=== PATIENT | female | born 1950 | race Caucasian/White ===

== ENCOUNTER 2020-03-15 14:21 | Outpatient (REF) | payer MEDICARE, SELFPAY ==
--- NOTE | 2020-03-15 | XR_ITS ---
EXAMINATION: XR ELBOW, RIGHT CLINICAL INFORMATION: Fracture COMPARISON: Previous x-ray June 2019 TECHNIQUE: AP, lateral, and oblique views of the right elbow. FINDINGS: There is an old ununited fracture of the distal radius. There is a transverse condylar fracture with vertical component that extends to the medial elbow joint. There is a 5 mm displacement at the medial joint space and at the lateral humeral condyle. Alignment appears unchanged. No evidence of interval bony union. No acute fracture or dislocation is seen. There may be a small elbow joint effusion. XR/XR elbow RT min 3V IMPRESSION: No change in ununited distal humeral fracture intra-articular with the medial elbow joint.
== END 2020-03-15 14:22 | disposition home or self-care (01) ==
LOC: HO.XRAY 14:21
PROVIDERS: PCP Internal Medicine; Visit Provider Internal Medicine
DX: S42.401D Unspecified fracture of lower end of right humerus, subsequent encounter for fracture with routine healing (principal)
CPT/HCPCS: 73080

== ENCOUNTER 2020-04-05 10:44 | Inpatient (IN) | payer MEDICARE, SELFPAY ==
[2020-04-05 10:54] VITALS: BP 115/77; BP 118/42; PULSE 70; PULSE 72; RESP 16; TEMP 36.1; O2SAT 100; O2SAT 97; BMI 32.2
--- NOTE | 2020-04-05 11:03 | XR_ITS ---
EXAMINATION: LEFT HIP AND LEFT KNEE X-RAY CLINICAL INFORMATION: Twisted knee. Pain. COMPARISON: Previous left knee x-ray July 2018 TECHNIQUE: 2 views of the left knee and 3 views of the left hip FINDINGS: Left knee: There is a comminuted fracture of the distal shaft of the left femur. There is slight lateral and posterior displacement of the femoral condyles with respect to the more proximal shaft, mild impaction and valgus and anterior angulation at the fracture. There is question of cortical thickening, periosteal reaction and small lucencies suggestive of underlying permeative bone lesion or pathologic fracture. There is arthritis at the medial femoral tibial and patellofemoral joints with joint space narrowing and osteophyte formation. There is a joint effusion. There are cerclage wires seen projecting over the medial proximal tibial metaphysis. Left hip: Bone alignment is normal. No fracture or dislocation is seen. The joint space is normal. Soft tissues are normal. XR/XR knee LT 3V IMPRESSION: Left knee: Comminuted displaced fracture of the left distal femoral shaft, question pathologic fracture. Left hip: Unremarkable left hip.
--- NOTE | 2020-04-05 11:09 | ED_ITS ---
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 Denies an actual fall, head injury or loss of consciousness, paresthesias or any other injuries complaints or concerns. Related Data Home Medications Medication Instructions Recorded Confirmed amlodipine 10 mg PO DAILY 01/05/20 04/05/20 atorvastatin 20 mg PO BEDTIME 01/05/20 04/05/20 calcium carbonate [Antacid Ext Str 1 tab PO BID 01/05/20 04/05/20 (calcium carb)] docusate sodium [DOK] 100 mg PO BEDTIME 01/05/20 04/05/20 omeprazole 20 mg DAILY 01/05/20 04/05/20 tramadol 1 tab PO Q12H PRN 04/05/20 04/05/20 Previous Rx's Medication Instructions Recorded potassium chloride 10 meq PO DAILY #30 tab 02/02/20 Allergies Allergy/AdvReac Type Severity Reaction Status Date / Time lenalidomide [From REVLIMID] Allergy Intermediate RASH HEAD Verified 01/05/20 10:37 TO TOE Review of Systems Review of Systems: Constitutional : No changes in activity, No lethargy ENT/Mouth : No Ear Pain, No Nasal discharge/drainage Eyes: No Eye Pain, No Swelling, No Redness, No Foreign Body, No Vision Changes Cardiovascular : No Chest Pain, No SOB Respiratory : No Cough Gastrointestinal : No Nausea, No Vomiting, No abdominal Pain Genitourinary : No Dysuria, No Urinary Frequency, No Urinary Incontinence, No Urgency, No Flank Pain Musculoskeletal : + joint pain, No neck stiffness, No back pain/injury Skin : No lacerations Neuro : No unsteady gait, No Paresthesias, No Loss of Consciousness, No altered mental status, No Headache Yes all other systems are reviewed and are negative [facility] Past Medical History Attestation statement: The following information was validated with the patient. Medical History (Updated 04/05/20 @ 11:48 by KAIA Singh) GERD (gastroesophageal reflux disease) History of IBS HTN (hypertension) Hyperlipidemia Right humeral fracture Thrombocytopenia Surgical History (Updated 04/05/20 @ 12:29 by Audrey Nance NP) H/O hernia repair History of esophagogastroduodenoscopy (EGD) History of total knee arthroplasty Previous section Family History Family History (Updated 04/05/20 @ 12:30 by Audrey Nance NP) Father Bladder cancer Mother ESRD (end stage renal disease) on dialysis Social History Social History Alcohol intake: never Smoking Status: Never smoker Smoked in Last 30 Days: No Use of substances other than those prescribed or required for medical reasons: No Advance Directives: No Advance Directives Information Provided: No Physical Exam Vital Signs: Vital Signs: Last Vital Signs Temp 96.9 F 04/05/20 12:00 Pulse 77 04/05/20 12:00 Resp 14 04/05/20 12:00 BP 122/46 L 04/05/20 12:00 Pulse Ox 98 04/05/20 12:00 Body Mass Index 32.2 Vital signs have been reviewed as normal and appeared to be correct. Blood pressure normal. Heart rate normal. Respiration rate normal. Temperature normal. Oxygen saturation normal. Appearance: Alert. Oriented. In pain otherwise No other acute distress. Head: Normal external exam. Normocephalic. Atraumatic. Able to rotate head bilaterally. Eyes: PERRLA. EOMI. No nystagmus noted. Conjunctiva and sclera normal. Eyelids normal. Corneal reflex normal. ENT: Hearing normal. Pharynx normal. Uvula midline. tongue midline. Moist mucous membranes. Neck: Normal inspection. Neck supple. FROM. Nontender. CVS: Normal heart rate and rhythm. Heart sound normal. Pulses normal throughout. Respiratory: No respiratory distress. Painless inspiration. Breath sounds normal. No wheezes/rales/rhonchi noted. Chest nontender. Back: No tenderness noted. Full range of motion noted. Skin: Skin warm and dry. Normal skin color. Normal skin turgor. No rashes/lesions/lacerations noted. Extremities: TTP of left knee joint at the medial aspect and held in internal flexion position and wwith any type of movement pt screams of pain ? deformity. No ecchymosis/abrasion/laceration/hematoma noted. Patient reports she is in too much pain when examining laxity although tendon and ligaments appear to be intact. No obvious deformities noted. All other Extremities exhibit normal range of motion and nontender. Neuro: Oriented X 3. No other motor deficit other than weakness to left knee joint. No sensory deficit. Reflexes normal. Moving all extremities. Speech normal. Strength 5/5 throughout to b/l arms and right leg. Decreased strength to LLE due to pain. Muscle tone normal throughout. 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 - will obtain x-rays. Provide 5 mg of oxycodone Then re-evaluate. Reevaluation(s) Reevaluation #1: - patient has a fracture to distal aspect of femur therefore will obtain labs, type and screen and EKG and plan to admit to [facility] orthopedic PA who will plan to admit for further evaluation and treatment. Time: 11:46 Reevaluation #2: - labs within normal limits. COVID swab negative. EKG normal sinus rhythm no acute ischemic changes noted. Patient cleared to be admitted at this time to the hospitalist and consulted with Orthopedics for surgery within 48 hours. Patient understands agrees the plan. Time: 13:52 MDM - Extremity Injury (Lower) Differential Diagnosis Differential diagnosis: Likely acute internal derangement of knee and fracture of femur Medical Records Attestation: I reviewed the patient's medical records. Lab Data Attestation: I reviewed the patient's lab results. Result diagrams: 04/05/20 12:32 04/05/20 12:31 Labs: Lab Results 04/05/20 04/05/20 04/05/20 Range/Units 12:31 12:31 12:32 WBC 9.6 (4.8-10.8) X10*3/uL RBC 3.71 L (4.20-5.50) X10*6/uL Hgb 10.9 L (12.0-16.0) g/dl Hct 34.0 L (37-47) % MCV 91.6 (80-98) fL MCH 29.4 (27.0-33.0) pg MCHC 32.1 (31.0-35.0) g/dl RDW 13.8 (11.0-16.0) % Plt Count 167 (160-400) X10*3/uL MPV 11.8 (9.4-12.3) fL Immature Gran % (Auto) 0.4 (0.0-0.4) % Neut % (Auto) 83.4 H (45-73) % Lymph % (Auto) 10.8 L (20-40) % [place] % (Auto) 5.1 (2-11) % Eos % (Auto) 0.1 (0-4) % Baso % (Auto) 0.2 (0-2) % Lymph # (Auto) 1.0 L (1.2-4.9) X10*3/uL [place] # (Auto) 0.5 (0.1-1.2) X10*3/uL Eos # (Auto) 0.0 (0.0-0.4) X10*3/uL Baso # (Auto) 0.0 (0.0-0.2) X10*3/uL Abs Immat Gran (auto) 0.04 H (0.00-0.03) X10*3/uL Absolute Neuts (auto) 8.0 (2.0-8.3) X10*3/uL Absolute Nucleated RBC 0.000 (0.0-0.012) X10*3/uL Nucleated RBC % (auto) 0.0 (0.0-0.2) /100WBC PT (10.8-13.0) SEC INR (0.9-1.1) APTT (24.1-38.0) SEC Sodium 140 (135-145) mmol/L Potassium 3.7 (3.3-5.1) mmol/l Chloride 102 (96-108) mmol/L Carbon Dioxide 21 L (22-29) mmol/L Anion Gap 21 H (12-20) BUN 14 (9-16) mg/dL Creatinine 0.93 (0.5-1.4) mg/dL Estim Creat Clear Calc 34.9 Estimated GFR 60 Random Glucose 99 (60-115) mg/dL Calcium 10.2 (8.4-10.2) mg/dL Magnesium 1.9 (1.6-2.6) mg/dL Total Bilirubin 0.4 (0.0-1.0) mg/dL Direct Bilirubin 0.2 (0.0-0.5) mg/dL AST 25 (5-31) U/L ALT 10 (0-31) U/L Alkaline Phosphatase 103 (39-117) U/L Total Protein 7.8 (6.5-8.0) g/dL Albumin 4.1 (3.5-5.0) g/dL COVID-19 (ABDOULAYE) (Negative) COVID-19 Clin Com Blood Type O Positive Antibody Screen NEGATIVE 04/05/20 04/05/20 Range/Units 12:32 12:34 WBC (4.8-10.8) X10*3/uL RBC (4.20-5.50) X10*6/uL Hgb (12.0-16.0) g/dl Hct (37-47) % MCV (80-98) fL MCH (27.0-33.0) pg MCHC (31.0-35.0) g/dl RDW (11.0-16.0) % Plt Count (160-400) X10*3/uL MPV (9.4-12.3) fL Immature Gran % (Auto) (0.0-0.4) % Neut % (Auto) (45-73) % Lymph % (Auto) (20-40) % [place] % (Auto) (2-11) % Eos % (Auto) (0-4) % Baso % (Auto) (0-2) % Lymph # (Auto) (1.2-4.9) X10*3/uL [place] # (Auto) (0.1-1.2) X10*3/uL Eos # (Auto) (0.0-0.4) X10*3/uL Baso # (Auto) (0.0-0.2) X10*3/uL Abs Immat Gran (auto) (0.00-0.03) X10*3/uL Absolute Neuts (auto) (2.0-8.3) X10*3/uL Absolute Nucleated RBC (0.0-0.012) X10*3/uL Nucleated RBC % (auto) (0.0-0.2) /100WBC PT 12.7 (10.8-13.0) SEC INR 1.1 (0.9-1.1) APTT 31.0 (24.1-38.0) SEC Sodium (135-145) mmol/L Potassium (3.3-5.1) mmol/l Chloride (96-108) mmol/L Carbon Dioxide (22-29) mmol/L Anion Gap (12-20) BUN (9-16) mg/dL Creatinine (0.5-1.4) mg/dL Estim Creat Clear Calc Estimated GFR Random Glucose (60-115) mg/dL Calcium (8.4-10.2) mg/dL Magnesium (1.6-2.6) mg/dL Total Bilirubin (0.0-1.0) mg/dL Direct Bilirubin (0.0-0.5) mg/dL AST (5-31) U/L ALT (0-31) U/L Alkaline Phosphatase (39-117) U/L Total Protein (6.5-8.0) g/dL Albumin (3.5-5.0) g/dL COVID-19 (ABDOULAYE) Negative (Negative) COVID-19 Clin Com See Note Blood Type Antibody Screen Imaging Data Left knee/femur x-ray: Attestation: I personally reviewed and interpreted this imaging study as follows: Radiologist's impression: IMPRESSION: Left knee: Comminuted displaced fracture of the left distal femoral shaft, question pathologic fracture. Left hip: Unremarkable left hip. ECG Data Attestation: I personally reviewed and interpreted this ECG as follows: ECG interpretation date: 04/05/20 ECG interpretation time: 12:01 Interpretation: Normal sinus rhythm with a ventricular rate of 83 with nonspecific T-wave abnormalities no acute ischemic changes noted. Similar when compared to prior EKG on 07/04/2017 Critical Care Time Critical Care Time Critical Care Time: Yes Total Critical Care Time: 60 Attestation: I personally attest to this time spent taking care of the patient Discharge Plan Discharge Clinical Impression: Closed left femoral fracture Patient Disposition: Admitted As Inpatient Prescriptions: No Action atorvastatin 20 mg tablet 20 mg PO BEDTIME RF: 0 calcium carbonate [Antacid Ext Str (calcium carb)] 300 mg (750 mg) tablet,c hewable 1 tab PO BID RF: 0 amlodipine 10 mg tablet 10 mg PO DAILY RF: 0 docusate sodium [DOK] 100 mg capsule 100 mg PO BEDTIME RF: 0 omeprazole 20 mg capsule,delayed release(DR/EC) 20 mg DAILY RF: 0 potassium chloride 10 mEq tablet extended release 10 meq PO DAILY Qty: 30 RF: 3 tramadol 50 mg tablet 1 tab PO Q12H PRN (Reason: severe pain) RF: 0
--- NOTE | 2020-04-05 11:28 | XR_ITS ---
EXAMINATION: LEFT HIP AND LEFT KNEE X-RAY CLINICAL INFORMATION: Twisted knee. Pain. COMPARISON: Previous left knee x-ray July 2018 TECHNIQUE: 2 views of the left knee and 3 views of the left hip FINDINGS: Left knee: There is a comminuted fracture of the distal shaft of the left femur. There is slight lateral and posterior displacement of the femoral condyles with respect to the more proximal shaft, mild impaction and valgus and anterior angulation at the fracture. There is question of cortical thickening, periosteal reaction and small lucencies suggestive of underlying permeative bone lesion or pathologic fracture. There is arthritis at the medial femoral tibial and patellofemoral joints with joint space narrowing and osteophyte formation. There is a joint effusion. There are cerclage wires seen projecting over the medial proximal tibial metaphysis. Left hip: Bone alignment is normal. No fracture or dislocation is seen. The joint space is normal. Soft tissues are normal. XR/XR femur LT 2V IMPRESSION: Left knee: Comminuted displaced fracture of the left distal femoral shaft, question pathologic fracture. Left hip: Unremarkable left hip.
[2020-04-05] MEDS: oxyCODONE HCl Immed Release 5 MG TABLET PO (11:40)
--- NOTE | 2020-04-05 11:43 | ECG_ITS ---
Test Reason : FALL Blood Pressure : / mmHG Vent. Rate : 083 BPM Atrial Rate : 083 BPM P-R Int : 178 ms QRS Dur : 084 ms QT Int : 382 ms P-R-T Axes : 039 -22 061 degrees QTc Int : 448 ms Normal sinus rhythm with sinus arrhythmia Nonspecific T wave abnormality Abnormal ECG When compared with ECG of 04-JUL-2017 12:15, No significant changes seen Referred By: Katerine Vazquez Electronically Signed By:Mark Castro
[2020-04-05 12:00] VITALS: BP 122/46; PULSE 77; RESP 14; TEMP 36.1; O2SAT 98
--- NOTE | 2020-04-05 12:27 | PM.IMHP ---
History of Present Illness Date of Service: 04/05/20 <Audrey Nance NP - Last Filed: 04/05/20 13:49> Chief Complaint: Fall <Audrey Nance NP - Last Filed: 04/05/20 13:49> 69 year old women presenting after a fall. She reported that she was in the kitchen cooking breakfast for her and suddenly her legs buckled from under her. She was able to hold onto the sink and not fall to the floor. She called her son and her son called EMS. She reported pain to the left leg but no trauma that she knows of. She does have history of multiple myeloma. Femur x-ray showed comminuted displaced fracture of the left distal femur , question pathological. Labs within acceptable limits, vital signs stable. Denies any recent fever, chills, nausea, vomiting, diarrhea, loss of consciousness. In the ED, she was given pain medication. She will be admitted for further management and treatment of acute femoral fracture. <Audrey Nance NP - Last Filed: 04/05/20 13:49> Review of Systems Review of Systems: Denies any recent fever chills or decrease in appetite respiratory denies any shortness of breath coverage production cardiovascular is adjustment of any PND or edema gastrointestinal denies any dysphagia abdominal pain nausea vomiting or diarrhea genitourinary denies any dysuria frequency or hematuria musculoskeletal Left leg pain neuropsych denies any weakness or seizures all other systems reviewed are negative <Audrey Nance NP - Last Filed: 04/05/20 13:49> FOR[facility], LATER [facility] Medical History: Medical History GERD (gastroesophageal reflux disease) History of IBS HTN (hypertension) Hx of multiple myeloma Hyperlipidemia Right humeral fracture Thrombocytopenia <Audrey Nance NP - Last Filed: 04/05/20 13:49> Family History: Family History Father Bladder cancer Mother ESRD (end stage renal disease) on dialysis <Audrey Nance NP - Last Filed: 04/05/20 13:49> Surgical History: Surgical History H/O hernia repair History of esophagogastroduodenoscopy (EGD) History of left knee surgery History of right knee surgery Previous section <Audrey Nance NP - Last Filed: 04/05/20 13:49> Social History: Social History Household Members: Family Housing: House Alcohol intake: never Smoking Status: Never smoker Second Hand Smoke Exposure: No Advance Directives: Yes Advance Directives Information Provided: No Advance Directives on File: No service: No Current occupational status: retired <Audrey Nance NP - Last Filed: 04/05/20 13:49> Meds Allergies/Adverse reactions: Allergies Allergy/AdvReac Type Severity Reaction Status Date / Time lenalidomide [From REVLIMID] Allergy Intermediate RASH HEAD Verified 04/06/20 10:42 TO TOE <Audrey Nance NP - Last Filed: 04/05/20 13:49> Home medications: Home Medications Medication Instructions Recorded Confirmed Type amlodipine 10 mg PO DAILY 01/05/20 04/05/20 History atorvastatin 20 mg PO BEDTIME 01/05/20 04/05/20 History calcium carbonate [Antacid Ext Str 1 tab PO BID 01/05/20 04/05/20 History (calcium carb)] docusate sodium [DOK] 100 mg PO BEDTIME 01/05/20 04/05/20 History omeprazole 20 mg DAILY 01/05/20 04/05/20 History tramadol 1 tab PO Q12H PRN 04/05/20 04/05/20 History <Audrey Nance NP - Last Filed: 04/05/20 13:49> Physical Exam Vital Signs and Narrative: Vital Signs: Last Vital Signs Temp 96.9 F 04/05/20 12:00 Pulse 77 04/05/20 12:00 Resp 14 04/05/20 12:00 BP 122/46 L 04/05/20 12:00 Pulse Ox 98 04/05/20 12:00 Body Mass Index 32.2 <Audrey Nance NP - Last Filed: 04/05/20 13:49> Results Labs CBC and Chem 7: : 04/08/20 06:26 04/08/20 06:26 <Audrey Nance NP - Last Filed: 04/05/20 13:49> Imaging Radiologist's Impressions: Impressions Knee X-Ray 04/05/20 11:03 IMPRESSION: Left knee: Comminuted displaced fracture of the left distal femoral shaft, question pathologic fracture. Left hip: Unremarkable left hip. Femur X-Ray 04/05/20 11:28 IMPRESSION: Left knee: Comminuted displaced fracture of the left distal femoral shaft, question pathologic fracture. Left hip: Unremarkable left hip. <Audrey Nance NP - Last Filed: 04/05/20 13:49> Assessment and Plan (1) Closed left femoral fracture: Status: Resolved <Audrey Nance NP - Last Filed: 04/05/20 13:49> 69 year old women is admitted with femoral fracture secondary to a mechanical fall. Femoral fracture. Orthopedic surgery consultation. Pain management. Mechanical fall. Bedrest for now, PT eval post-operative. Hypertension. Stable blood pressure. Monitor for post-operative hypotension. GERD. PPI Hyperlipidemia. Statin DVT prophylaxis with mechanical compression boots. Discussed with Dr. Urbina Full code <Audrey Nance NP - Last Filed: 04/05/20 13:49>
--- NOTE | 2020-04-05 12:29 | PC.NURSE ---
kaia ignacio and pt aware xray results, [facility] Gaytan C orthpedics at bedside to assess pt, pharmacy also at bedside for med rec
[2020-04-05 12:38] LABS: MANUAL DIFF FLAG NO
[2020-04-05 12:40] LABS: Basophils Percent Auto 0.2 % (0-2); Eosinophils Percent Auto 0.1 % (0-4); Hemoglobin 10.9 g/dl (12.0-16.0); Imm Gran Abs Auto 0.04 X10*3/uL (0.00-0.03); Imm Gran Pct Auto 0.4 % (0.0-0.4); Lymphocytes Percent Auto 10.8 % (20-40); Mean Corpuscular HGB Conc 32.1 g/dl (31.0-35.0); Mean Corpuscular Hemoglobin 29.4 pg (27.0-33.0); Mean Corpuscular Volume 91.6 fL (80-98); Mean Platelet Volume 11.8 fL (9.4-12.3); Monocytes Absolute Auto 0.5 X10*3/uL (0.1-1.2); Monocytes Percent Auto 5.1 % (2-11); Neutrophils Percent Auto 83.4 % (45-73); Platelet Count 167 X10*3/uL (160-400); Red Blood Count 3.71 X10*6/uL (4.20-5.50); Red Cell Distribution Width 13.8 % (11.0-16.0); White Blood Count 9.6 X10*3/uL (4.8-10.8)
[2020-04-05 12:49] LABS: INTERNATIONAL NORM RATIO 1.1 (0.9-1.1); Prothrombin Time 12.7 SEC (10.8-13.0)
--- NOTE | 2020-04-05 12:58 | PC.NURSE ---
phone offered to pt to call family approx. [phone] stated she wanted to wait until she had all information. [phone], pts spouse Dannie called to check on pt, updated re: admission and he agrees to have her call him when she gets settled and has all info
--- NOTE | 2020-04-05 13:00 | PC.NURSE ---
pt has port rt chest, no peripheral iv to be inserted at present time
[2020-04-05 13:09] LABS: COVID-19 Test Negative (Negative)
[2020-04-05 13:16] LABS: Alanine Aminotransferase 10 U/L (0-31); Albumin Level 4.1 g/dL (3.5-5.0); Alkaline Phosphatase 103 U/L (39-117); Anion Gap 21 (12-20); Aspartate Amino Transferase 25 U/L (5-31); Bilirubin Direct 0.2 mg/dL (0.0-0.5); Bilirubin Total 0.4 mg/dL (0.0-1.0); Blood Urea Nitrogen 14 mg/dL (9-16); Calcium 10.2 mg/dL (8.4-10.2); Carbon Dioxide 21 mmol/L (22-29); Chloride 102 mmol/L (96-108); Creatinine Clr Calc Pharmacy 34.9; Estimated Glomerular Filt Rate 60; Glucose Random 99 mg/dL (60-115); Magnesium 1.9 mg/dL (1.6-2.6); Potassium 3.7 mmol/l (3.3-5.1); Sodium 140 mmol/L (135-145); Total Protein 7.8 g/dL (6.5-8.0)
--- NOTE | 2020-04-05 13:20 | PM.EVENT ---
Event Note Date of Service: 04/05/20 Event Note: Patient seen and examined independently and was present during mclaughlin portion of E/M service. Agree with midlevel's history, physical, assessment, and plan. 69F presnted with mechanical fall mechanical fall complicated by left femoral fracture benefits of surgery outweigh risks thrombocytopenia mild, should not increase bleeding risk
--- NOTE | 2020-04-05 14:39 | XR_ITS ---
EXAMINATION: XR CHEST CLINICAL INFORMATION: Check port COMPARISON: Port insertion 08/21/2017 TECHNIQUE: Frontal view of the chest was obtained. FINDINGS: There is a right jugular inserted port catheter with stiffener in proximal SVC. It appears to have slowly migrated outwards. The lungs are well-expanded and clear. The heart size and vascularity is normal. There is moderate spondylosis dorsal spine. No lytic process. XR/XR chest 1V IMPRESSION: Slight outward migration of right jugular port. The lungs are otherwise clear.
--- NOTE | 2020-04-05 14:58 | MHC.SHP ---
Pre-Procedural Eval Section A The patient is an INPATIENT: Yes The History & Physical has been completed within 30 days and I have reviewed it.: Yes Section B Chief Complaint: left knee pain Allergies: Allergies Allergy/AdvReac Type Severity Reaction Status Date / Time lenalidomide [From REVLIMID] Allergy Intermediate RASH HEAD Verified 01/05/20 10:37 TO TOE Plan I have reviewed the history and physical and performed a pertinent physical examination on my patient. No changes have occurred unless specified.
--- NOTE | 2020-04-05 15:37 | P.HPOP_ITS ---
History of Present Illness History of Present Illness Date of Service: 04/05/20 Chief complaint: Femur Fracture Narrative: Kristen Cortés is a 69 year old female who presents to the ER s/p twi sting injury to her left leg and found to have a left distal femur fracture on xray. She states that this morning she was in her kitchen making a cup of coffee for her and twisted to start walking. At that point she states that her leg gave out and she fell to the ground. She does all ADLs on her own, walks unassisted before the injury, and lives with her and her daughters family. She has a medical history significant for Multiple Myeloma in which she is currently being treated with chemotherapy by Dr. Schuster. The patient is being admitted to the hospital service and orthopedics was consulted for further eval and treatment. Review of Systems Review of Systems: Yes all other systems are reviewed and are negative PMF Past Medical History Medical History (Updated 04/05/20 @ 15:54 by Natalya Jovel PA-C) GERD (gastroesophageal reflux disease) History of IBS HTN (hypertension) Hyperlipidemia Right humeral fracture Thrombocytopenia Family History Family History Father Bladder cancer Mother ESRD (end stage renal disease) on dialysis Surgical History Surgical History (Updated 04/05/20 @ 15:48 by Natalya Jovel PA-C) H/O hernia repair History of esophagogastroduodenoscopy (EGD) History of left knee surgery History of right knee surgery Previous section Social History Social History Alcohol intake: never Smoking Status: Never smoker Smoked in Last 30 Days: No Use of substances other than those prescribed or required for medical reasons: No Advance Directives: No Advance Directives Information Provided: No Meds Allergies Allergy/AdvReac Type Severity Reaction Status Date / Time lenalidomide [From REVLIMID] Allergy Intermediate RASH HEAD Verified 01/05/20 10:37 TO TOE Home Medications Medication Instructions Recorded Confirmed Type amlodipine 10 mg PO DAILY 01/05/20 04/05/20 History atorvastatin 20 mg PO BEDTIME 01/05/20 04/05/20 History calcium carbonate [Antacid Ext Str 1 tab PO BID 01/05/20 04/05/20 History (calcium carb)] docusate sodium [DOK] 100 mg PO BEDTIME 01/05/20 04/05/20 History omeprazole 20 mg DAILY 01/05/20 04/05/20 History tramadol 1 tab PO Q12H PRN 04/05/20 04/05/20 History Physical Exam Vital Signs: Vital Signs: Last Vital Signs Temp 96.9 F 04/05/20 12:00 Pulse 77 04/05/20 12:00 Resp 14 04/05/20 12:00 BP 122/46 L 04/05/20 12:00 Pulse Ox 98 04/05/20 12:00 Body Mass Index 32.2 Const: General: cooperative, healthy appearing, comfortable, no acute distress, well developed and alert Orientation/consciousness: patient vanesa ented x3 HENMT: Head: Yes normal to inspection, Yes normocephalic and Yes atraumatic Eyes: General: appearance normal, both eyes and all related structures Neck: Neck: Yes normal visual inspection and Yes no lymphadenopathy Resp: Effort & Inspection: normal respiratory effort and able to speak in complete sentences Cardio: Rate: regular rate Peripheral pulses: Peripheral pulses 2+ throughout GI: Inspection: Yes normal to inspection Palpation (GI): Soft to palpation Skin: General skin exam: no rashes or lesions noted Neuro: General: patient oriented x3 Extrem: Other: Left knee normal on inspection. Surgical scar present. Palpation over the distal femur illicits pain. Minimal swelling and no ecchy mosis. Patient is unable to flex her knee due to pain. Ankle has full ROM. NVI. Psych: Appearance: grossly normal Results Labs Result Diagrams: 04/05/20 12:32 04/05/20 12:31 Labs: Abnormal lab results 04/05/20 04/05/20 Range/Units 12:31 12:32 RBC 3.71 L (4.20-5.50) X10*6/uL Hgb 10.9 L (12.0-16.0) g/dl Hct 34.0 L (37-47) % Neut % (Auto) 83.4 H (45-73) % Lymph % (Auto) 10.8 L (20-40) % Lymph # (Auto) 1.0 L (1.2-4.9) X10*3/uL Abs Immat Gran (auto) 0.04 H (0.00-0.03) X10*3/uL Carbon Dioxide 21 L (22-29) mmol/L Anion Gap 21 H (12-20) H & H 04/05/20 Range/Units 12:32 Hgb 10.9 L (12.0-16.0) g/dl Hct 34.0 L (37-47) % Coagulation 04/05/20 Range/Units 12:32 INR 1.1 (0.9-1.1) All other labs normal. Assessment and Plan (1) Closed left femoral fracture: Qualifiers: Encounter type: initial encounter Femur location: distal, unspecified portion Fracture morphology: unspecified fracture morphology Qualified Code(s): S72.402A - Unspecified fracture of lower end of left femur, initial encounter for closed fracture Status: Acute I discussed the case with Dr. Boston and explained the extent of the injury to the patient and options available which include surgical intervention. I explained the procedure in detail along with the length of recovery and rehab course. I explained the risk, benefits and alternatives. Risk including, but not limited to infection, blood clots, bleeding, non union or malunion and nerve /tissue damage to surrounding areas. I answered all of her questions and with her understanding that she has consented to move forward with Operative Fixation of her left distal femur. The patient with be T&S, med clearance obtained and NPO after midnight.
[2020-04-05 15:56] LABS: Glucose Urine UA NEG (NEG); Leukocyte Esterase Urine NEG (NEG); Nitrite Urine NEG (NEG); PH 6.5 (5.0-8.0); Urine Blood 1+ (NEG); Urine Ketones 15 MG/DL (NEG); Urine Protein TRACE MG/DL (NEG-TRACE)
[2020-04-05 15:57] LABS: Appearance Urine CLEAR; Color Urine YELLOW
[2020-04-05 16:18] LABS: Bacteria Urine 1+ /LPF; Squamous Epithelial Cell Urine 1+ /LPF; WBC Urine 0 /HPF (0-4)
[2020-04-05 16:45] VITALS: BP 146/67; PULSE 96; RESP 16; TEMP 36.9; O2SAT 98
--- NOTE | 2020-04-05 16:46 | PC.NURSE ---
one attempt to access portacath rt chest unsuccessful. peripheral iv +22 rt hand inserted by adriana wu
--- NOTE | 2020-04-05 16:57 | PC.NURSE ---
report to adriana ludwig s3w, awaiting transport to floor
[2020-04-05 17:38] VITALS: BP 138/65; PULSE 98; RESP 17; TEMP 37.1; O2SAT 99
--- NOTE | 2020-04-05 17:42 | PC.NURSE ---
transported via stretcher, f/c in place, #22 rt hand, a&ox3
[2020-04-05] MEDS: 0.9 % Sodium Chloride Flush 3 ML SYRINGE IVFLUSH ×2 (18:03→21:27)
[2020-04-05 19:30] VITALS: BP 154/79; PULSE 104; RESP 16; TEMP 37.1; O2SAT 97
[2020-04-05] MEDS: Calcium Carbonate 750 MG TAB.CHEW PO (21:27)
[2020-04-05] MEDS: Atorvastatin Calcium 20 MG TABLET PO (21:27)
[2020-04-05] MEDS: Docusate Sodium 100 MG CAPSULE PO (21:27)
[2020-04-05 23:45] VITALS: BP 142/72; PULSE 103; RESP 20; TEMP 36.7; O2SAT 97
[2020-04-06] VITALS (12 sets, daily range): BP systolic 124–152; BP diastolic 64–76; PULSE 92–98; RESP 14–19; TEMP 36.3–37.7; O2SAT 93–97; BMI 32.2
[2020-04-06] MEDS: Omeprazole 20 MG CAPSULE.DR PO (06:38)
[2020-04-06] MEDS: ceFAZolin Sodium/Dextrose,Iso 2 GM/50 ML PIGGYBACK IV ×3 (06:39→16:34)
[2020-04-06 06:44] LABS: MANUAL DIFF FLAG NO
[2020-04-06 06:56] LABS: Hematocrit 30.5 % (37-47); Hemoglobin 10.1 g/dl (12.0-16.0); Imm Gran Abs Auto 0.04 X10*3/uL (0.00-0.03); Imm Gran Pct Auto 0.6 % (0.0-0.4); Lymphocytes Absolute Auto 1.3 X10*3/uL (1.2-4.9); Lymphocytes Percent Auto 17.4 % (20-40); Mean Corpuscular HGB Conc 33.1 g/dl (31.0-35.0); Mean Corpuscular Hemoglobin 29.4 pg (27.0-33.0); Mean Corpuscular Volume 88.9 fL (80-98); Mean Platelet Volume 11.6 fL (9.4-12.3); Monocytes Absolute Auto 0.8 X10*3/uL (0.1-1.2); Monocytes Percent Auto 10.7 % (2-11); Neutrophils Absolute Auto 5.1 X10*3/uL (2.0-8.3); Neutrophils Percent Auto 71.3 % (45-73); Platelet Count 164 X10*3/uL (160-400); Red Blood Count 3.43 X10*6/uL (4.20-5.50); Red Cell Distribution Width 13.5 % (11.0-16.0); White Blood Count 7.2 X10*3/uL (4.8-10.8)
[2020-04-06] MEDS: 0.9 % Sodium Chloride Flush 3 ML SYRINGE IVFLUSH ×5 (07:17→21:46)
[2020-04-06] MEDS: oxyCODONE HCl Immed Release 5 MG TABLET PO ×2 (07:17→18:33)
[2020-04-06 07:36] LABS: Anion Gap 18 (12-20); Blood Urea Nitrogen 14 mg/dL (9-16); Calcium 9.3 mg/dL (8.4-10.2); Carbon Dioxide 22 mmol/L (22-29); Chloride 100 mmol/L (96-108); Creatinine Clr Calc Pharmacy 39.6; Estimated Glomerular Filt Rate > 60; Glucose Random 107 mg/dL (60-115); Potassium 3.8 mmol/l (3.3-5.1); Sodium 136 mmol/L (135-145)
[2020-04-06] MEDS: amLODIPine Besylate 10 MG TABLET PO (08:13)
--- NOTE | 2020-04-06 10:48 | HO.ANESPROP2 ---
[facility] Past Medical History Medical History GERD (gastroesophageal reflux disease) History of IBS HTN (hypertension) Hx of multiple myeloma Hyperlipidemia Right humeral fracture Thrombocytopenia Family History Family History Father Bladder cancer Mother ESRD (end stage renal disease) on dialysis Surgical History Surgical History H/O hernia repair History of esophagogastroduodenoscopy (EGD) History of left knee surgery History of right knee surgery Previous section Social History Social History Household Members: Family Housing: House Alcohol intake: never Smoking Status: Never smoker Second Hand Smoke Exposure: No Meds Allergies Allergy/AdvReac Type Severity Reaction Status Date / Time lenalidomide [From REVLIMID] Allergy Intermediate RASH HEAD Verified 04/06/20 10:42 TO TOE Home Medications Medication Instructions Recorded Confirmed Type amlodipine 10 mg PO DAILY 01/05/20 04/05/20 History atorvastatin 20 mg PO BEDTIME 01/05/20 04/05/20 History calcium carbonate [Antacid Ext Str 1 tab PO BID 01/05/20 04/05/20 History (calcium carb)] docusate sodium [DOK] 100 mg PO BEDTIME 01/05/20 04/05/20 History omeprazole 20 mg DAILY 01/05/20 04/05/20 History tramadol 1 tab PO Q12H PRN 04/05/20 04/05/20 History Exam Exam Date and Time: April 06, 2020 1048 Height,Weight and Vital Signs: Height 4 ft 4 in Weight 56.245 kg Last Vital Signs Temp 99.1 F 04/06/20 07:53 Pulse 92 04/06/20 07:53 Resp 18 04/06/20 07:53 BP 150/67 H 04/06/20 07:53 Pulse Ox 93 04/06/20 07:53 Pertinent Lab Results Pertinent Lab Results: Laboratory Tests 04/05/20 04/05/20 04/05/20 12:31 12:31 12:32 WBC 9.6 RBC 3.71 L Hgb 10.9 L Hct 34.0 L MCV 91.6 MCH 29.4 MCHC 32.1 RDW 13.8 Plt Count 167 MPV 11.8 Immature Gran % (Auto) 0.4 Neut % (Auto) 83.4 H Lymph % (Auto) 10.8 L [place] % (Auto) 5.1 Eos % (Auto) 0.1 Baso % (Auto) 0.2 Lymph # (Auto) 1.0 L [place] # (Auto) 0.5 Eos # (Auto) 0.0 Baso # (Auto) 0.0 Abs Immat Gran (auto) 0.04 H Absolute Neuts (auto) 8.0 Absolute Nucleated RBC 0.000 Nucleated RBC % (auto) 0.0 PT INR APTT Sodium 140 Potassium 3.7 Chloride 102 Carbon Dioxide 21 L Anion Gap 21 H BUN 14 Creatinine 0.93 Estim Creat Clear Calc 34.9 Estimated GFR 60 Random Glucose 99 Calcium 10.2 Magnesium 1.9 Total Bilirubin 0.4 Direct Bilirubin 0.2 AST 25 ALT 10 Alkaline Phosphatase 103 Total Protein 7.8 Albumin 4.1 Urine Color Urine Appearance Urine pH Ur Specific [place] Urine Protein Urine Glucose (UA) Urine Ketones Urine Blood Urine Nitrite Ur Leukocyte Esterase Urine RBC Urine WBC Ur Squamous Epith Cells Urine Bacteria COVID-19 (ABDOULAYE) COVID-19 Clin Com Blood Type O Positive Antibody Screen NEGATIVE 04/05/20 04/05/20 04/05/20 12:32 12:34 15:33 WBC RBC Hgb Hct MCV MCH MCHC RDW Plt Count MPV Immature Gran % (Auto) Neut % (Auto) Lymph % (Auto) [place] % (Auto) Eos % (Auto) Baso % (Auto) Lymph # (Auto) [place] # (Auto) Eos # (Auto) Baso # (Auto) Abs Immat Gran (auto) Absolute Neuts (auto) Absolute Nucleated RBC Nucleated RBC % (auto) PT 12.7 INR 1.1 APTT 31.0 Sodium Potassium Chloride Carbon Dioxide Anion Gap BUN Creatinine Estim Creat Clear Calc Estimated GFR Random Glucose Calcium Magnesium Total Bilirubin Direct Bilirubin AST ALT Alkaline Phosphatase Total Protein Albumin Urine Color YELLOW Urine Appearance CLEAR Urine pH 6.5 Ur Specific [place] 1.020 Urine Protein TRACE Urine Glucose (UA) NEG Urine Ketones 15 Urine Blood 1+ H Urine Nitrite NEG Ur Leukocyte Esterase NEG Urine RBC 1-4 Urine WBC 0 Ur Squamous Epith Cells 1+ Urine Bacteria 1+ COVID-19 (ABDOULAYE) Negative COVID-19 Clin Com See Note Blood Type Antibody Screen 04/06/20 04/06/20 06:22 06:22 WBC 7.2 RBC 3.43 L Hgb 10.1 L Hct 30.5 L MCV 88.9 MCH 29.4 MCHC 33.1 RDW 13.5 Plt Count 164 MPV 11.6 Immature Gran % (Auto) 0.6 H Neut % (Auto) 71.3 Lymph % (Auto) 17.4 L [place] % (Auto) 10.7 Eos % (Auto) 0.0 Baso % (Auto) 0.0 Lymph # (Auto) 1.3 [place] # (Auto) 0.8 Eos # (Auto) 0.0 Baso # (Auto) 0.0 Abs Immat Gran (auto) 0.04 H Absolute Neuts (auto) 5.1 Absolute Nucleated RBC 0.000 Nucleated RBC % (auto) 0.0 PT INR APTT Sodium 136 Potassium 3.8 Chloride 100 Carbon Dioxide 22 Anion Gap 18 BUN 14 Creatinine 0.82 Estim Creat Clear Calc 39.6 Estimated GFR > 60 Random Glucose 107 Calcium 9.3 D Magnesium Total Bilirubin Direct Bilirubin AST ALT Alkaline Phosphatase Total Protein Albumin Urine Color Urine Appearance Urine pH Ur Specific [place] Urine Protein Urine Glucose (UA) Urine Ketones Urine Blood Urine Nitrite Ur Leukocyte Esterase Urine RBC Urine WBC Ur Squamous Epith Cells Urine Bacteria COVID-19 (ABDOULAYE) COVID-19 Clin Com Blood Type Antibody Screen Airway Mallampati Class: II TM Dist: >3cm Neck ROM: Full Assessment and Plan Assessment Anesthesia Assessment: Anesthesia Plan Discussed and Chart Reviewed Final Anesthetic Review NPO: Yes ASA Class: III Final Preanesthetic Review: No Changes in Pt Med Stat, Meds/Allgs Chart Reviewed, Consent Obtained/Reviewed and Anes Risks/Benef Reviewed Patient Risk: Intermediate Procedure Risk: Intermediate Assessment/Block/Sedation in SS: Assess/Block/Sedation-SS Anesthetic Plan Anesthetic Plan: GA Disposition: Standard PACU
--- NOTE | 2020-04-06 11:13 | FL_ITS ---
EXAMINATION: XR FLUOROSCOPY WITH IMAGES CLINICAL INFORMATION: Displaced fracture distal femur. COMPARISON: Radiographs left femur and knee 04/05/2020 TECHNIQUE: Fluoroscopy performed by Dr. Carranza Instrlizabeth. Fluoroscopy time: 4.0 minutes DAP: 0.672 mGycm2 Images: 4 FINDINGS: Distal femoral fracture is reduced with intramedullary suly, 2 proximal interlocking screws, and for distal interlocking screws. The fracture fragments are in near-anatomic alignment. Hardware intact. There are arthritic changes again seen medial lateral knee joint compartment. FL/FL guidance in OR IMPRESSION: Status post open reduction internal fixation distal left femoral fracture.
[2020-04-06] MEDS: Lactated Ringers 1,000 ML 20 ML IVCONT (11:15)
--- NOTE | 2020-04-06 12:32 | MHC.CM.PN ---
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 CM will revisit tomorrow Original Note: CM ATTEMPTED TO SEE PT WHO IS OFF THE UNIT. CM TO RETURN
--- NOTE | 2020-04-06 12:41 | HO.PM.IMPN ---
Subjective Subjective Date of Service: 04/06/20 Interval History: Patient seen and examined at bedside patient reported hip pain Review of Systems Denies any recent fever chills or decrease in appetite respiratory denies any shortness of breath coverage production cardiovascular is adjustment of any PND or edema gastrointestinal denies any dysphagia abdominal pain nausea vomiting or diarrhea genitourinary denies any dysuria frequency or hematuria musculoskeletal Left leg pain neuropsych denies any weakness or seizures all other systems reviewed are negative Physical Exam Vital Signs: Vital Signs: Last Vital Signs Temp 99.8 F 04/06/20 10:43 Pulse 92 04/06/20 10:43 Resp 16 04/06/20 10:43 BP 133/73 04/06/20 10:43 Pulse Ox 97 04/06/20 10:43 Body Mass Index 32.2 Const: General: cooperative, healthy appearing, comfortable, no acute distress, well developed and alert Orientation/consciousness: patient oriented x3 Limitations: No language barrier HENMT: Head: Yes normal to inspection, Yes normocephalic and Yes atraumatic Eyes: General: appearance normal, both eyes and all related structures Neck: Neck: Yes normal visual inspection and Yes no lymphadenopathy Resp: Effort & Inspection: normal respiratory effort and able to speak in complete sentences Cardio: Rate: regular rate Peripheral pulses: Peripheral pulses 2+ throughout GI: Inspection: Yes normal to inspection Palpation (GI): Soft to palpation Skin: General skin exam: no rashes or lesions noted Neuro: General: patient oriented x3 Extrem: Other: Left knee normal on inspection. Surgical scar present. Palpation over the distal femur illicits pain. Minimal swelling and no ecchymosis. Patient is unable to flex her knee due to pain. Ankle has full ROM. NVI. Psych: Appearance: grossly normal Objective Data Current Medications Generic Name Dose Route Start Last Admin Trade Name Freq PRN Reason Stop Dose Admin Acetaminophen 650 mg 04/05/20 17:35 Acetaminophen 325 Mg Tablet PO Q6H PRN Pain, Mild (Pain Scale 1-3) Acetaminophen 650 mg 04/06/20 11:11 Acetaminophen 325 Mg Tablet PO ONCE PRN Pain, Mild (Pain Scale 1-3) Amlodipine Besylate 10 mg 04/06/20 09:00 04/06/20 08:13 Amlodipine Besylate 10 Mg Tablet PO 10 mg DAILY ROSA Administration Protocol Atorvastatin Calcium 20 mg 04/05/20 21:00 04/05/20 21:27 Atorvastatin Calcium 20 Mg Tablet PO 20 mg BEDTIME ROSA Administration Calcium Carbonate 750 mg 04/05/20 21:00 04/06/20 08:15 Calcium Carbonate 750 Mg Tab.Chew PO Not Given BID ROSA Docusate Sodium 100 mg 04/05/20 21:00 04/05/20 21:27 Docusate Sodium 100 Mg Capsule PO 100 mg BEDTIME ROSA Administration Fentanyl 50 mcg 04/06/20 11:11 Fentanyl Citrate/Pf 100 Mcg/2 Ml Vial IVPUSH Q5M PRN Pain, Severe (Pain Scale 7-10) Lactated Ringer's 1,000 mls @ 20 mls/hr 04/06/20 11:15 04/06/20 11:15 Lr IVCONT 20 mls/hr .Q24H ROSA Administration Morphine Sulfate 2 mg 04/05/20 17:35 Morphine Sulfate 2 Mg/Ml Cartridge IVPUSH Q4H PRN Pain, Mild (Pain Scale 1-3) Omeprazole 20 mg 04/06/20 06:30 04/06/20 06:38 Omeprazole 20 Mg Capsule.Dr PO 20 mg DAILY@0630 ROSA Administration Ondansetron HCl 4 mg 04/05/20 17:35 Ondansetron Hcl 4 Mg/2 Ml Vial IVPUSH Q8H PRN Nausea and Vomiting Ondansetron HCl 4 mg 04/06/20 11:11 Ondansetron Hcl 4 Mg/2 Ml Vial IVPUSH ONCE PRN Nausea and Vomiting Oxycodone HCl 5 mg 04/05/20 16:23 04/06/20 07:17 Oxycodone Hcl Immed Release 5 Mg Tablet PO 5 mg Q4H PRN Administration Pain, Mild (Pain Scale 1-3) Oxycodone HCl 5 mg 04/05/20 17:35 Oxycodone Hcl Immed Release 5 Mg Tablet PO Q6H PRN Pain, Mild (Pain Scale 1-3) Oxycodone HCl 5 mg 04/06/20 11:11 Oxycodone Hcl Immed Release 5 Mg Tablet PO ONCE PRN Pain, Severe (Pain Scale 7-10) Pharmacy Consult 1 each 04/05/20 11:44 Consult Rx Perform Med Rec MISCELLANE ONCE PRN Consult order Potassium Chloride 10 meq 04/06/20 09:00 04/06/20 08:15 Potassium Chloride Er 10 Meq Capsule.Er PO Not Given DAILY ROSA Sodium Chloride 3 ml 04/05/20 17:35 04/06/20 07:17 0.9 % Sodium Chloride Flush 3 Ml Syringe IVFLUSH 3 ml QSHIFT [facility] Administration Labs CBC & Chem 7: 04/06/20 06:22 04/06/20 06:22 Assessment and Plan (1) Closed left femoral fracture: Status: Acute Assessment and Plan: 69 year old women is admitted with femoral fracture secondary to a mechanical fall. Femoral fracture. Orthopedic surgery consulted plan for surgery today continue Pain management. Mechanical fall. PT eval post-operative. Hypertension. Stable blood pressure. continue amlodipine GERD. continue PPI Hyperlipidemia. Statin DVT prophylaxis with mechanical compression boots.
--- NOTE | 2020-04-06 13:39 | PM.PRCOR ---
Brief Operative Note Date of procedure: 04/06/20 Pre-op diagnosis: Supracondylar fracture left femur Post-op diagnosis: same Procedure: UPPER FIXATION LEFT FEMUR WITH LOCKED RETROGRADE FEMORAL NAIL Anesthesia: GETA and local Surgeon: Tere Boston Estimated blood loss (mL): 50 Condition: stable Disposition: PACU
[2020-04-06] MEDS: Atorvastatin Calcium 20 MG TABLET PO (21:38)
[2020-04-06] MEDS: Docusate Sodium 100 MG CAPSULE PO (21:38)
[2020-04-06] MEDS: Calcium Carbonate 750 MG TAB.CHEW PO (21:38)
[2020-04-06] MEDS: Morphine Sulfate 2 MG/ML CARTRIDGE IVPUSH (21:42)
[2020-04-07] VITALS (9 sets, daily range): BP systolic 122–150; BP diastolic 56–89; PULSE 72–110; RESP 16–18; TEMP 36.4–37.4; O2SAT 93–98
[2020-04-07] MEDS: Morphine Sulfate 2 MG/ML CARTRIDGE IVPUSH ×2 (01:59→06:38)
[2020-04-07] MEDS: Omeprazole 20 MG CAPSULE.DR PO (06:38)
[2020-04-07 08:46] LABS: MANUAL DIFF FLAG NO
[2020-04-07 08:57] LABS: Hematocrit 27.8 % (37-47); Hemoglobin 9.2 g/dl (12.0-16.0); Imm Gran Abs Auto 0.03 X10*3/uL (0.00-0.03); Imm Gran Pct Auto 0.3 % (0.0-0.4); Lymphocytes Percent Auto 10.9 % (20-40); Mean Corpuscular HGB Conc 33.1 g/dl (31.0-35.0); Mean Corpuscular Hemoglobin 29.5 pg (27.0-33.0); Mean Corpuscular Volume 89.1 fL (80-98); Mean Platelet Volume 11.5 fL (9.4-12.3); Monocytes Absolute Auto 0.9 X10*3/uL (0.1-1.2); Monocytes Percent Auto 9.2 % (2-11); Neutrophils Absolute Auto 7.5 X10*3/uL (2.0-8.3); Neutrophils Percent Auto 79.6 % (45-73); Platelet Count 144 X10*3/uL (160-400); Red Blood Count 3.12 X10*6/uL (4.20-5.50); Red Cell Distribution Width 13.5 % (11.0-16.0); White Blood Count 9.4 X10*3/uL (4.8-10.8)
[2020-04-07] MEDS: amLODIPine Besylate 10 MG TABLET PO (08:58)
[2020-04-07] MEDS: Calcium Carbonate 750 MG TAB.CHEW PO ×2 (08:58→21:08)
[2020-04-07] MEDS: oxyCODONE HCl Immed Release 5 MG TABLET 10 MG PO ×4 (08:59→21:09)
[2020-04-07] MEDS: 0.9 % Sodium Chloride Flush 3 ML SYRINGE IVFLUSH ×4 (09:01→15:37)
[2020-04-07 09:32] LABS: Anion Gap 14 (12-20); Blood Urea Nitrogen 16 mg/dL (9-16); Calcium 8.8 mg/dL (8.4-10.2); Carbon Dioxide 25 mmol/L (22-29); Chloride 98 mmol/L (96-108); Creatinine Clr Calc Pharmacy 39.6; Estimated Glomerular Filt Rate > 60; Glucose Random 111 mg/dL (60-115); Sodium 133 mmol/L (135-145)
--- NOTE | 2020-04-07 09:45 | HO.POSTANES ---
Post Anesthesia Evaluation Post Anesthesia Evaluation Vital Signs: Vital Signs Temp Pulse Resp BP Pulse Ox 04/07/20 08:58 96 140/72 H 04/07/20 07:07 99.4 F 96 18 140/72 H 93 04/07/20 04:00 98.3 F 98 16 142/67 H 94 04/07/20 00:31 98.6 F 72 18 150/82 H 98 Anesthesia: General LMA Mental Status: Awake Pain Control: Satisfactory Nausea/Vomiting: None Hydration: Adequate Anesthesia-Related Issues: No Anes. Related Issues
--- NOTE | 2020-04-07 11:36 | MHC.CM.PN ---
PT WILL DISCHARGE TO ACUTE REHAB VIA BLS TRANSPORT VIA [facility], PT WOULD PREFER A REHAB IN [place] OR [facility] TO MAKE REFERRALS FOR ANTICIPATED D/C TOMORROW 04/08/20. PT REPORTS SHE WAS INDEPENDENT WITH ALL CARE PRIOR TO HOSPITAL STAY AND HAD NOT HAD TO USE HER CANE SINCE SHE FRACTURED HER ELBOW IN 2018, PT REPORTS LIVING WITH , SON [id number] AND TWO SMALL GRANDCHILDREN. PT VERIFIED PCP [facility]MMET[facility] AND PHARMACY [facility]. PT DOES REPORT SHE HAS A HEALTH CARE PROXYWHO IS HER SON EMANUEL ALLISON, COPY REQUESTED. IF UNABLE TO LOCATE OR BRING IN CM WILL COMPLETE A NEW ONE DUE TO PT NEEDING IT FOR PLACEMENT.
--- NOTE | 2020-04-07 12:21 | MHC.CM.PN ---
Addendum entered by Minda Olvera RN 04/07/20 14:23: NEW HCP COMPLETED WITH PT, PT GIVEN ORIGINAL AND 4 COPIES, COPY UPLOADED TO [employer] AND PLACED IN CHART. HCP: TERI ALLISON () (H)[phone] (CELL) [phone] ALTERNATE: EMANUEL ALLISON (SON) [phone] Original Note: CM SPOKE WITH PT'S TERI TO REQUEST COPY OF HCP, TERI REPORTS HE DOES NOT KNOW WHERE IT IS. CM WILL OFFER TO COMPLETE NEW ONE WITH PT IF NONE ON FILE. CM REVIEWED ACUTE REHABS WITH WHO PREFERS [facility] DUE TO IT BEING CLOSEST TO HOME, WHICH PT ALSO PREFERS. DISCHARGE PLAN TRANSFER TO ACUTE REHAB VIA BLS TRANSPORT ON 04/08/20
[2020-04-07] MEDS: Enoxaparin Sodium 40 MG/0.4 ML SYRINGE SUBCUT (12:56)
--- NOTE | 2020-04-07 14:31 | MHC.CM.PN ---
Addendum entered by Minda Olvera RN 04/07/20 15:34: CM RECEIVED CALL FROM [facility] AND SECURED BED FOR TOMORROW 04/08 AT 3PM, TRANSPORTATION SET UP WITH [facility]. CM REQUESTED REPEAT COVID TEST FOR TONIGHT OR TOMORROW MORNING. WILL NEED PRIOR TO TRANSFER. Original Note: PT CLINICALLY ACCEPTED AT [facility] AND [place] PENDING BED AVAILABILITY, PTS FIRST CHOICE IS [facility] AND THEY ARE AWARE.
--- NOTE | 2020-04-07 14:58 | PM.PNORT ---
Subjective Subjective Date of Service: 04/07/20 Interval history: POD1 s/p Lt distal femoral nailing. Patient states that she was having a lot of pain overnight. No major overnight events. Denies nausea and vomiting. Physical Exam Vital Signs: Vital Signs: Last Vital Signs Temp 98.8 F 04/07/20 11:09 Pulse 94 04/07/20 11:09 Resp 18 04/07/20 11:09 BP 127/56 L 04/07/20 11:09 Pulse Ox 93 04/07/20 11:09 Body Mass Index 32.2 Const: General: cooperative, healthy appearing and no acute distress Resp: Effort & Inspection: normal respiratory effort and able to speak in complete sentences Cardio: Rate: regular rate Peripheral pulses: Peripheral pulses 2+ throughout GI: Inspection: Yes normal to inspection Palpation (GI): Soft to palpation Skin: General skin exam: no rashes or lesions noted Extrem: Other: Left knee no ecchymosis, redness, or drainage. Minimal swelling. Dressing is clean dry and intact. NVI Progress Note: A&P Assessment and plan (1) Closed left femoral fracture: Status: Acute Assessment and Plan: Continue pain mgmnt Begin Lovenox dvt ppx begin PT for LT distal femoral nailing NWB Dispo planning-Pending PT eval, pain mgmnt Fall Risk Details Current Medications: Current Medications Generic Name Dose Route Start Last Admin Trade Name Freq PRN Reason Stop Dose Admin Acetaminophen 650 mg 04/05/20 17:35 Acetaminophen 325 Mg Tablet PO Q6H PRN Pain, Mild (Pain Scale 1-3) Acetaminophen 650 mg 04/06/20 11:11 Acetaminophen 325 Mg Tablet PO ONCE PRN Pain, Mild (Pain Scale 1-3) Amlodipine Besylate 10 mg 04/06/20 09:00 04/07/20 08:58 Amlodipine Besylate 10 Mg Tablet PO 10 mg DAILY ROSA Administration Protocol Aspirin 325 mg 04/07/20 22:00 Aspirin 325 Mg Tablet PO BID [facility] Atorvastatin Calcium 20 mg 04/05/20 21:00 04/06/20 21:38 Atorvastatin Calcium 20 Mg Tablet PO 20 mg BEDTIME ROSA Administration Calcium Carbonate 750 mg 04/05/20 21:00 04/07/20 08:58 Calcium Carbonate 750 Mg Tab.Chew PO 750 mg BID ROSA Administration Docusate Sodium 100 mg 04/05/20 21:00 04/06/20 21:38 Docusate Sodium 100 Mg Capsule PO 100 mg BEDTIME ROSA Administration Enoxaparin Sodium 40 mg 04/07/20 12:00 04/07/20 12:56 Enoxaparin Sodium 40 Mg/0.4 Ml Syringe SUBCUT 40 mg Q24H ROSA Administration Lactated Ringer's 1,000 mls @ 20 mls/hr 04/06/20 11:15 04/07/20 12:58 Lr IVCONT Not Given .Q24H ROSA Morphine Sulfate 2 mg 04/07/20 08:25 Morphine Sulfate 2 Mg/Ml Cartridge IVPUSH Q4H PRN Pain, Severe (Pain Scale 7-10) Omeprazole 20 mg 04/06/20 06:30 04/07/20 06:38 Omeprazole 20 Mg Capsule.Dr PO 20 mg DAILY@0630 ROSA Administration Ondansetron HCl 4 mg 04/05/20 17:35 Ondansetron Hcl 4 Mg/2 Ml Vial IVPUSH Q8H PRN Nausea and Vomiting Oxycodone HCl 10 mg 04/07/20 08:25 04/07/20 12:57 Oxycodone Hcl Immed Release 5 Mg Tablet PO 10 mg Q4H ROSA Administration Pharmacy Consult 1 each 04/05/20 11:44 Consult Rx Perform Med Rec MISCELLANE ONCE PRN Consult order Potassium Chloride 10 meq 04/06/20 09:00 04/07/20 09:00 Potassium Chloride Er 10 Meq Capsule.Er PO 10 meq DAILY ROSA Administration Sodium Chloride 3 ml 04/05/20 17:35 04/07/20 09:01 0.9 % Sodium Chloride Flush 3 Ml Syringe IVFLUSH 3 ml QSHIFT ROSA Administration Sodium Chloride 3 ml 04/06/20 16:00 04/07/20 09:01 0.9 % Sodium Chloride Flush 3 Ml Syringe IVFLUSH 3 ml QSHIFT ROSA Administration Time Spent With Patient Time: Total time spent is greater than 50% in coordination of care (as documented) at patient's floor/unit and/or counseling patient: Time with patient: less than 15 minutes
--- NOTE | 2020-04-07 15:37 | P.PNIM_ITS ---
Subjective Subjective Date of Service: 04/07/20 Interval History: Patient seen and examined at bedside patient reported hip pain Review of Systems Denies any recent fever chills or decrease in appetite respiratory denies any shortness of breath coverage production cardiovascular is adjustment of any PND or edema gastrointestinal denies any dysphagia abdominal pain nausea vomiting or diarrhea genitourinary denies any dysuria frequency or hematuria musculoskeletal Left leg pain neuropsych denies any weakness or seizures all other systems reviewed are negative Physical Exam Vital Signs: Vital Signs: Last Vital Signs Temp 98.8 F 04/07/20 11:09 Pulse 94 04/07/20 11:09 Resp 18 04/07/20 11:09 BP 127/56 L 04/07/20 11:09 Pulse Ox 93 04/07/20 11:09 Body Mass Index 32.2 Const: General: cooperative, healthy appearing, comfortable, no acute distress, well developed and alert Orientation/consciousness: patient oriented x3 Limitations: No language barrier HENMT: Head: Yes normal to inspection, Yes normocephalic and Yes atraumatic Eyes: General: appearance normal, both eyes and all related structures Neck: Neck: Yes normal visual inspection and Yes no lymphadenopathy Resp: Effort & Inspection: normal respiratory effort and able to speak in complete sentences Cardio: Rate: regular rate Peripheral pulses: Peripheral pulses 2+ throughout GI: Inspection: Yes normal to inspection Palpation (GI): Soft to palpation Skin: General skin exam: no rashes or lesions noted Neuro: General: patient oriented x3 Extrem: Other: Left knee normal on inspection. Surgical scar present. Palpation over the distal femur illicits pain. Minimal swelling and no ecchymosis. Patient is unable to flex her knee due to pain. Ankle has full ROM. NVI. Psych: Appearance: grossly normal Objective Data Current Medications Generic Name Dose Route Start Last Admin Trade Name Freq PRN Reason Stop Dose Admin Acetaminophen 650 mg 04/05/20 17:35 Acetaminophen 325 Mg Tablet PO Q6H PRN Pain, Mild (Pain Scale 1-3) Acetaminophen 650 mg 04/06/20 11:11 Acetaminophen 325 Mg Tablet PO ONCE PRN Pain, Mild (Pain Scale 1-3) Amlodipine Besylate 10 mg 04/06/20 09:00 04/07/20 08:58 Amlodipine Besylate 10 Mg Tablet PO 10 mg DAILY ROSA Administration Protocol Atorvastatin Calcium 20 mg 04/05/20 21:00 04/06/20 21:38 Atorvastatin Calcium 20 Mg Tablet PO 20 mg BEDTIME ROSA Administration Calcium Carbonate 750 mg 04/05/20 21:00 04/07/20 08:58 Calcium Carbonate 750 Mg Tab.Chew PO 750 mg BID ROSA Administration Docusate Sodium 100 mg 04/05/20 21:00 04/06/20 21:38 Docusate Sodium 100 Mg Capsule PO 100 mg BEDTIME ROSA Administration Enoxaparin Sodium 40 mg 04/07/20 12:00 04/07/20 12:56 Enoxaparin Sodium 40 Mg/0.4 Ml Syringe SUBCUT 40 mg Q24H ROSA Administration Lactated Ringer's 1,000 mls @ 20 mls/hr 04/06/20 11:15 04/07/20 12:58 Lr IVCONT Not Given .Q24H ROSA Morphine Sulfate 4 mg 04/07/20 15:26 Morphine Sulfate 2 Mg/Ml Cartridge IVPUSH Q4H PRN Pain, Severe (Pain Scale 7-10) Omeprazole 20 mg 04/06/20 06:30 04/07/20 06:38 Omeprazole 20 Mg Capsule.Dr PO 20 mg DAILY@0630 ROSA Administration Ondansetron HCl 4 mg 04/05/20 17:35 Ondansetron Hcl 4 Mg/2 Ml Vial IVPUSH Q8H PRN Nausea and Vomiting Oxycodone HCl 10 mg 04/07/20 08:25 04/07/20 12:57 Oxycodone Hcl Immed Release 5 Mg Tablet PO 10 mg Q4H ROSA Administration Pharmacy Consult 1 each 04/05/20 11:44 Consult Rx Perform Med Rec MISCELLANE ONCE PRN Consult order Potassium Chloride 10 meq 04/06/20 09:00 04/07/20 09:00 Potassium Chloride Er 10 Meq Capsule.Er PO 10 meq DAILY ROSA Administration Sodium Chloride 3 ml 04/05/20 17:35 04/07/20 15:37 0.9 % Sodium Chloride Flush 3 Ml Syringe IVFLUSH 3 ml QSHIFT ROSA Administration Sodium Chloride 3 ml 04/06/20 16:00 04/07/20 09:01 0.9 % Sodium Chloride Flush 3 Ml Syringe IVFLUSH 3 ml QSHIFT ROSA Administration Labs CBC & Chem 7: 04/07/20 08:30 04/07/20 08:30 Assessment and Plan (1) Closed left femoral fracture: Status: Acute Assessment and Plan: 69 year old women is admitted with femoral fracture secondary to a mechanical f all. Femoral fracture. status post surgery continue Pain management Mechanical fall. PT eval Hypertension. Stable blood pressure. continue amlodipine GERD. continue PPI Hyperlipidemia. continue Statin DVT prophylaxis with Lovenox
[2020-04-07] MEDS: Atorvastatin Calcium 20 MG TABLET PO (21:08)
[2020-04-07] MEDS: Docusate Sodium 100 MG CAPSULE PO (21:08)
[2020-04-08] MEDS: oxyCODONE HCl Immed Release 5 MG TABLET 10 MG PO ×4 (00:06→13:09)
[2020-04-08] MEDS: 0.9 % Sodium Chloride Flush 3 ML SYRINGE IVFLUSH ×4 (00:12→09:46)
[2020-04-08] MEDS: Omeprazole 20 MG CAPSULE.DR PO (05:39)
[2020-04-08 06:45] LABS: MANUAL DIFF FLAG NO
[2020-04-08 06:55] LABS: Basophils Percent Auto 0.1 % (0-2); Eosinophils Percent Auto 0.1 % (0-4); Hematocrit 26.2 % (37-47); Hemoglobin 8.5 g/dl (12.0-16.0); Imm Gran Abs Auto 0.04 X10*3/uL (0.00-0.03); Imm Gran Pct Auto 0.5 % (0.0-0.4); Lymphocytes Absolute Auto 1.3 X10*3/uL (1.2-4.9); Lymphocytes Percent Auto 15.4 % (20-40); Mean Corpuscular HGB Conc 32.4 g/dl (31.0-35.0); Mean Corpuscular Hemoglobin 29.3 pg (27.0-33.0); Mean Corpuscular Volume 90.3 fL (80-98); Mean Platelet Volume 11.5 fL (9.4-12.3); Monocytes Absolute Auto 0.8 X10*3/uL (0.1-1.2); Monocytes Percent Auto 9.2 % (2-11); Neutrophils Absolute Auto 6.1 X10*3/uL (2.0-8.3); Neutrophils Percent Auto 74.7 % (45-73); Platelet Count 152 X10*3/uL (160-400); Red Cell Distribution Width 13.7 % (11.0-16.0); White Blood Count 8.1 X10*3/uL (4.8-10.8)
[2020-04-08 07:25] LABS: Anion Gap 14 (12-20); Blood Urea Nitrogen 18 mg/dL (9-16); Calcium 8.5 mg/dL (8.4-10.2); Carbon Dioxide 26 mmol/L (22-29); Chloride 96 mmol/L (96-108); Creatinine Clr Calc Pharmacy 37.3; Estimated Glomerular Filt Rate > 60; Glucose Random 106 mg/dL (60-115); Potassium 4.2 mmol/l (3.3-5.1); Sodium 132 mmol/L (135-145)
[2020-04-08 08:00] VITALS: BP 109/59; PULSE 95; RESP 16; TEMP 36.8; O2SAT 93
--- NOTE | 2020-04-08 08:39 | MHC.CM.PN ---
REQUEST MADE FOR RAPID COVID TEST ORDER CASE MANAGEMENT FOLLOWING
--- NOTE | 2020-04-08 08:46 | PC.NURSE ---
oliveros removed approx 8am
[2020-04-08] MEDS: Calcium Carbonate 750 MG TAB.CHEW PO (09:42)
[2020-04-08 09:44] VITALS: BP 105/48; PULSE 105
[2020-04-08] MEDS: amLODIPine Besylate 10 MG TABLET PO (09:44)
--- NOTE | 2020-04-08 10:51 | PM.DS ---
DS: Providers Provider Date of Service: 04/08/20 Date of admission: 04/05/20 14:14 Primary care physician: Akbar Gan MD Consults: 04/05/20 17:35 Consult to Orthopedics Routine Consulting Provider: Tere Boston Reason for consultation: femur fracture Has provider been notified: No DS: Diagnosis Discharge Diagnosis (1) Closed left femoral fracture: Status: Acute DS: Medications Discharge Medications Home Medications: Home Medications Medication Instructions Recorded Confirmed amlodipine 10 mg PO DAILY 01/05/20 04/05/20 atorvastatin 20 mg PO BEDTIME 01/05/20 04/05/20 calcium carbonate [Antacid Ext Str 1 tab PO BID 01/05/20 04/05/20 (calcium carb)] docusate sodium [DOK] 100 mg PO BEDTIME 01/05/20 04/05/20 omeprazole 20 mg DAILY 01/05/20 04/05/20 tramadol 1 tab PO Q12H PRN 04/05/20 04/05/20 Previous Rx's Medication Instructions Recorded potassium chloride 10 meq PO DAILY #30 tab 02/02/20 enoxaparin 40 mg SUBCUT Q24H #28 ml 04/08/20 ferrous gluconate 236 mg PO BID #60 tab 04/08/20 oxycodone 10 mg PO Q4H #20 tab 04/08/20 polyethylene glycol 3350 [Miralax] 17 g PO DAILY 4 Days #68 g 04/08/20 DS: Summary Hospital Course Hospital Course: HPI 69 year old women presenting after a fall. She reported that she was in the kitchen cooking breakfast for her and suddenly her legs buckled from under her. She was able to hold onto the sink and not fall to the floor. She called her son and her son called EMS. She reported pain to the left leg but no trauma that she knows of. She does have history of multiple myeloma. Femur x-ray showed comminuted displaced fracture of the left distal femur , question pathological. Labs within acceptable limits, vital signs stable. Denies any recent fever, chills, nausea, vomiting, diarrhea, loss of consciousness. In the ED, she was given pain medication. She will be admitted for further management and treatment of acute femoral fracture. Hospital course 69-year-old female admitted with fall and hip fracture, orthopedic was consulted, patient underwent hip surgery, patient has acute postoperative anemia hemoglobin dropped slowly from 10 to -8.5, patient was started on iron supplements, was evaluated by Physical therapy recommended short-term rehab, patient was stable discharged to short-term rehab with 4 weeks of prophylactic Lovenox and pain medication, patient will follow-up orthopedic Dr. Boston in 2-3 weeks Time Spent with Patient Time attestation: Total time spent providing and/or coordinating discharge services: Discharge coordination time: Greater than 30 minutes Physical Exam Vital Signs: Vital Signs: Last Vital Signs Temp 98.2 F 04/08/20 08:00 Pulse 105 H 04/08/20 09:44 Resp 16 04/08/20 08:00 BP 105/48 L 04/08/20 09:44 Pulse Ox 93 04/08/20 08:00 Body Mass Index 32.2 Const: General: cooperative, healthy appearing, comfortable, no acute distress, well developed and alert Orientation/consciousness: patient oriented x3 Limitations: No language barrier HENMT: Head: Yes normal to inspection, Yes normocephalic and Yes atraumatic Eyes: General: appearance normal, both eyes and all related structures Neck: Neck: Yes normal visual inspection and Yes no lymphadenopathy Resp: Effort & Inspection: normal respiratory effort and able to speak in complete sentences Cardio: Rate: regular rate Peripheral pulses: Peripheral pulses 2+ throughout GI: Inspection: Yes normal to inspection Palpation (GI): Soft to palpation Skin: General skin exam: no rashes or lesions noted Neuro: General: patient oriented x3 Extrem: Other: Left knee normal on inspection. Surgical scar present. Palpation over the distal femur illicits pain. Minimal swelling and no ecchymosis. Patient is unable to flex her knee due to pain. Ankle has full ROM. NVI. Psych: Appearance: grossly normal DS: Data Data Completed and Pending Labs on day of discharge: Laboratory Tests 04/05/20 04/05/20 04/05/20 12:31 12:31 12:32 WBC 9.6 RBC 3.71 L Hgb 10.9 L Hct 34.0 L MCV 91.6 MCH 29.4 MCHC 32.1 RDW 13.8 Plt Count 167 MPV 11.8 Immature Gran % (Auto) 0.4 Neut % (Auto) 83.4 H Lymph % (Auto) 10.8 L Garza % (Auto) 5.1 Eos % (Auto) 0.1 Baso % (Auto) 0.2 Lymph # (Auto) 1.0 L Garza # (Auto) 0.5 Eos # (Auto) 0.0 Baso # (Auto) 0.0 Abs Immat Gran (auto) 0.04 H Absolute Neuts (auto) 8.0 Absolute Nucleated RBC 0.000 Nucleated RBC % (auto) 0.0 PT INR APTT Sodium 140 Potassium 3.7 Chloride 102 Carbon Dioxide 21 L Anion Gap 21 H BUN 14 Creatinine 0.93 Estim Creat Clear Calc 34.9 Estimated GFR 60 Random Glucose 99 Calcium 10.2 Magnesium 1.9 Total Bilirubin 0.4 Direct Bilirubin 0.2 AST 25 ALT 10 Alkaline Phosphatase 103 Total Protein 7.8 Albumin 4.1 Urine Color Urine Appearance Urine pH Ur Specific [place] Urine Protein Urine Glucose (UA) Urine Ketones Urine Blood Urine Nitrite Ur Leukocyte Esterase Urine RBC Urine WBC Ur Squamous Epith Cells Urine Bacteria COVID-19 ([facility]DOULAYE) COVID-19 Clin Com Blood Type O Positive Antibody Screen NEGATIVE 04/05/20 04/05/20 04/05/20 12:32 12:34 15:33 WBC RBC Hgb Hct MCV MCH MCHC RDW Plt Count MPV Immature Gran % (Auto) Neut % (Auto) Lymph % (Auto) Garza % (Auto) Eos % (Auto) Baso % (Auto) Lymph # (Auto) Garza # (Auto) Eos # (Auto) Baso # (Auto) Abs Immat Gran (auto) Absolute Neuts (auto) Absolute Nucleated RBC Nucleated RBC % (auto) PT 12.7 INR 1.1 APTT 31.0 Sodium Potassium Chloride Carbon Dioxide Anion Gap BUN Creatinine Estim Creat Clear Calc Estimated GFR Random Glucose Calcium Magnesium Total Bilirubin Direct Bilirubin AST ALT Alkaline Phosphatase Total Protein Albumin Urine Color YELLOW Urine Appearance CLEAR Urine pH 6.5 Ur Specific [place] 1.020 Urine Protein TRACE Urine Glucose (UA) NEG Urine Ketones 15 Urine Blood 1+ H Urine Nitrite NEG Ur Leukocyte Esterase NEG Urine RBC 1-4 Urine WBC 0 Ur Squamous Epith Cells 1+ Urine Bacteria 1+ COVID-19 ([facility]DOULAYE) Negative COVID-19 Clin Com See Note Blood Type Antibody Screen 04/06/20 04/06/20 04/07/20 06:22 06:22 08:30 WBC 7.2 9.4 RBC 3.43 L 3.12 L Hgb 10.1 L 9.2 L Hct 30.5 L 27.8 L MCV 88.9 89.1 MCH 29.4 29.5 MCHC 33.1 33.1 RDW 13.5 13.5 Plt Count 164 144 L MPV 11.6 11.5 Immature Gran % (Auto) 0.6 H 0.3 Neut % (Auto) 71.3 79.6 H Lymph % (Auto) 17.4 L 10.9 L Garza % (Auto) 10.7 9.2 Eos % (Auto) 0.0 0.0 Baso % (Auto) 0.0 0.0 Lymph # (Auto) 1.3 1.0 L Garza # (Auto) 0.8 0.9 Eos # (Auto) 0.0 0.0 Baso # (Auto) 0.0 0.0 Abs Immat Gran (auto) 0.04 H 0.03 Absolute Neuts (auto) 5.1 7.5 Absolute Nucleated RBC 0.000 0.000 Nucleated RBC % (auto) 0.0 0.0 PT INR APTT Sodium 136 Potassium 3.8 Chloride 100 Carbon Dioxide 22 Anion Gap 18 BUN 14 Creatinine 0.82 Estim Creat Clear Calc 39.6 Estimated GFR > 60 Random Glucose 107 Calcium 9.3 D Magnesium Total Bilirubin Direct Bilirubin AST ALT Alkaline Phosphatase Total Protein Albumin Urine Color Urine Appearance Urine pH Ur Specific [place] Urine Protein Urine Glucose (UA) Urine Ketones Urine Blood Urine Nitrite Ur Leukocyte Esterase Urine RBC Urine WBC Ur Squamous Epith Cells Urine Bacteria COVID-19 ([facility]DOULAYE) COVID-19 Clin Com Blood Type Antibody Screen 04/07/20 04/07/20 04/07/20 08:30 08:30 08:30 WBC Cancelled RBC Cancelled Hgb Cancelled Hct Cancelled MCV Cancelled MCH Cancelled MCHC Cancelled RDW Cancelled Plt Count Cancelled MPV Cancelled Immature Gran % (Auto) Cancelled Neut % (Auto) Cancelled Lymph % (Auto) Cancelled Garza % (Auto) Cancelled Eos % (Auto) Cancelled Baso % (Auto) Cancelled Lymph # (Auto) Cancelled Garza # (Auto) Cancelled Eos # (Auto) Cancelled Baso # (Auto) Cancelled Abs Immat Gran (auto) Cancelled Absolute Neuts (auto) Cancelled Absolute Nucleated RBC Cancelled Nucleated RBC % (auto) Cancelled PT INR APTT Sodium Cancelled 133 L Potassium Cancelled 4.0 Chloride Cancelled 98 Carbon Dioxide Cancelled 25 Anion Gap Cancelled 14 BUN Cancelled 16 Creatinine Cancelled 0.82 Estim Creat Clear Calc Cancelled 39.6 Estimated GFR Cancelled > 60 Random Glucose Cancelled 111 Calcium Cancelled 8.8 Magnesium Total Bilirubin Direct Bilirubin AST ALT Alkaline Phosphatase Total Protein Albumin Urine Color Urine Appearance Urine pH Ur Specific [place] Urine Protein Urine Glucose (UA) Urine Ketones Urine Blood Urine Nitrite Ur Leukocyte Esterase Urine RBC Urine WBC Ur Squamous Epith Cells Urine Bacteria COVID-19 (ABDOULAYE) COVID-19 [employer] Com Blood Type Antibody Screen 04/08/20 04/08/20 06:26 06:26 WBC 8.1 RBC 2.90 L Hgb 8.5 L Hct 26.2 L MCV 90.3 MCH 29.3 MCHC 32.4 RDW 13.7 Plt Count 152 L MPV 11.5 Immature Gran % (Auto) 0.5 H Neut % (Auto) 74.7 H Lymph % (Auto) 15.4 L Garza % (Auto) 9.2 Eos % (Auto) 0.1 Baso % (Auto) 0.1 Lymph # (Auto) 1.3 Garza # (Auto) 0.8 Eos # (Auto) 0.0 Baso # (Auto) 0.0 Abs Immat Gran (auto) 0.04 H Absolute Neuts (auto) 6.1 Absolute Nucleated RBC 0.000 Nucleated RBC % (auto) 0.0 PT INR APTT Sodium 132 L Potassium 4.2 Chloride 96 Carbon Dioxide 26 Anion Gap 14 BUN 18 H Creatinine 0.87 Estim Creat Clear Calc 37.3 Estimated GFR > 60 Random Glucose 106 Calcium 8.5 Magnesium Total Bilirubin Direct Bilirubin AST ALT Alkaline Phosphatase Total Protein Albumin Urine Color Urine Appearance Urine pH Ur Specific [place] Urine Protein Urine Glucose (UA) Urine Ketones Urine Blood Urine Nitrite Ur Leukocyte Esterase Urine RBC Urine WBC Ur Squamous Epith Cells Urine Bacteria COVID-19 ([facility]DOULAYE) COVID-19 Clin Com Blood Type Antibody Screen Discharge Plan Discharge Anticipated Discharge Date/Time: 04/08/20 10:37 Patient Disposition: Xfer Inpatient Rehab Fac Referrals: [facility] [Outside] (PATIENT IS DISCHARGED TO [facility]) Akbar Fregoso MD [Primary Care Provider] - InstrTere barone MD [Physician] - Discharge Medications: New oxycodone 5 mg Tablet 10 mg PO Q4H Qty: 20 RF: 0 enoxaparin 40 mg/0.4 mL Syringe 40 mg subcut Q24H Qty: 28 RF: 0 polyethylene glycol 3350 [Miralax] 17 gram/dose powder 17 g PO DAILY 4 Days Qty: 68 RF: 0 ferrous gluconate 236 mg (27 mg iron) tablet 236 mg PO BID Qty: 60 RF: 0 Continued atorvastatin 20 mg tablet 20 mg PO BEDTIME RF: 0 calcium carbonate [Antacid Ext Str (calcium carb)] 300 mg (750 mg) tablet,chewable 1 tab PO BID RF: 0 amlodipine 10 mg tablet 10 mg PO DAILY RF: 0 docusate sodium [DOK] 100 mg capsule 100 mg PO BEDTIME RF: 0 omeprazole 20 mg capsule,delayed release(DR/EC) 20 mg DAILY RF: 0 potassium chloride 10 mEq tablet extended release 10 meq PO DAILY Qty: 30 RF: 3 tramadol 50 mg tablet 1 tab PO Q12H PRN (Reason: severe pain) RF: 0 Discharge Orders: Discharge Order (Routine); Ordered 04/08/20 Ordered By: Chai Thao Diet: advance to usual diet Activity on Discharge: As tolerated Activity Restrictions/Additional Instructions: NWB x6 weeks NWB ROM as tolerated beginning 2 weeks post op Dressing changes prn-dry dressings ( no sutures to remove) Continue anticoagulant No tub bath or shower-Keep dressing clean, dry and intact Follow up with orthopedics in 2 weeks Visit Report Forms: Patient Portal Discharge page Care Plan Goals: post op strength Health Concerns: hip surgery Plan of Treatment: rehab pain management
--- NOTE | 2020-04-08 11:17 | MHC.CM.PN ---
DC SUMMARY UPLOADED TO [facility]. RN AWARE OF DC PLAN FOR A 1500 TRANSFER VIA [facility]. ONCE COVID RESULTS ARE IN, THEY WILL BE UPLOADED TO THE FACILITY.
[2020-04-08 11:24] VITALS: BP 110/53; PULSE 106; RESP 18; TEMP 37.2; O2SAT 91
[2020-04-08 12:00] LABS: COVID-19 Test Negative (Negative)
--- NOTE | 2020-04-08 12:36 | OP_ITS ---
SURGEON: Tere Boston MD PREOPERATIVE DIAGNOSIS: Supracondylar fracture, distal left femur. POSTOPERATIVE DIAGNOSIS: Supracondylar fracture, distal left femur. PROCEDURE PERFORMED: Closed reduction and locked retrograde femoral nailing, left femur. ESTIMATED BLOOD LOSS: COMPLICATIONS: ANESTHESIA: ASSISTANTS: SPECIMENS: CLINICAL NOTE: This lady had fallen and injured her leg on the date of her admission. She subsequently was admitted to the Medical Service, where she was cleared. After explaining the risks, benefits, and alternatives and answering all the questions, it was mutually agreed upon to carry out the following procedure. DESCRIPTION OF PROCEDURE: Under a general anesthetic, the patient was placed supine on the operating table. Under fluoroscopic guidance, the fracture was identified. It was noted that it could be easily reduced. Therefore, the left leg was prepped and draped in standard fashion. Surgical time-out was then performed. The patient was identified, procedure confirmed, site confirmed. Medical analogy and history were reviewed. Preoperative antibiotics were given. Standard DVT prophylaxis was in place. All other items were discussed and agreed upon. Standard midline incision of the knee was carried out, taken down through subcutaneous tissues. Hemostasis was achieved along the way using electrocautery. This brought us to the patellar tendon. An incision was made from the inferior pole of the patellar tendon through the tendon in the midline to the tibial tubercle. It was carefully retracted. The soft tissues were taken through the patellar fat pad until the intercondylar notch was identified. Under fluoroscopic guidance, a guidewire was placed. It was checked on AP and lateral fluoroscopy and found to be in excellent position. Then, the reamer was used over the guidewire in order to open up the canal. Following this, a ball-tipped guidewire was introduced into the femoral canal. It was placed and it was under fluoroscopic guidance passed into the proximal segment up to the level of the lesser trochanter. It was then withdrawn until it was approximately 200 mm length and this had enough fixation. Therefore, the 200 mm x 11 mm nail was selected and brought up on the table. Over the guidewire under fluoroscopic guidance, the canal was reamed up to a 12.5 mm size. Following this, the nail was assembled in standard fashion, it was placed over the guidewire and introduced into the distal segment. It was then passed over the guidewire across the fracture into the proximal segment when the wire was removed. Under fluoroscopic guidance, it was that fully seated. We then turned our attention to the distal locking. Starting with the #1 and #4 transverse screws, they were under fluoroscopic guidance drilled, measured, and appropriate length screw was inserted. Following this, the 2 oblique screws were similarly drilled, measured, and appropriate length screw was inserted. Fluoroscopy demonstrated the all be in excellent position. We then turned our attention to the 2 proximal screws. The guide was used. They were drilled, measured, and appropriate length screw was inserted. At this point, end cap was placed in standard fashion and then the guide was removed. Final images were taken on AP and lateral positioning, which demonstrated the fracture reduced in excellent position. All the hardware to be appropriate and therefore proceeded to closure. Wound was thoroughly irrigated. Patellar tendon closed with 0 Dexon. Skin approximated using interrupted 2-0 Dexon. Skin was closed with zita. All the stab incisions that were made for the locking screws were closed with zita. Sterile dressing was then applied. The patient's anesthesia was then reversed and transferred supine to the room bed, then taken to recovery room in good condition. Intraoperatively, there was approximately 50 mL blood loss. No intraoperative complications. MD LIO Tee/ELIE / [phone]
[2020-04-08] MEDS: Enoxaparin Sodium 40 MG/0.4 ML SYRINGE SUBCUT (13:06)
--- NOTE | 2020-04-08 15:53 | MHC.CM.PN ---
CALL TO [facility]. TRANSPORT WILL SEND NEXT AVAILABLE PATIENT WAS SUPPOSED TO LEAVE AT 15:00. RN AND UNIT AWARE
[2020-04-08 16:00] VITALS: BP 130/59; PULSE 108; RESP 20; TEMP 37.6; O2SAT 90
== END 2020-04-08 16:15 | DRG 482 ==
LOC: HO.ED 13:54 → HO.S3 15:21
PROVIDERS: Nurse Practitioner Acute Care; Orthopaedic Surgery; Physician Assistant; Physician Assistant Medical; Admitting Provider Internal Medicine; Emergency Provider Emergency Medicine; PCP Internal Medicine; Visit Provider Internal Medicine
PROC: 0QSC34Z Reposition Left Lower Femur with Internal Fixation Device, Percutaneous Approach (ICD-10-PCS; principal; 2020-04-06 11:40)
DX: S72.452A Displaced supracondylar fracture without intracondylar extension of lower end of left femur, initial encounter for closed fracture (principal); W18.30XA Fall on same level, unspecified, initial encounter; Y93.9 Activity, unspecified; Y92.000 Kitchen of unspecified non-institutional (private) residence as the place of occurrence of the external cause; D64.9 Anemia, unspecified; Y99.9 Unspecified external cause status; K21.9 Gastro-esophageal reflux disease without esophagitis; E78.5 Hyperlipidemia, unspecified; Z20.828 Contact with and (suspected) exposure to other viral communicable diseases; Z79.899 Other long term (current) drug therapy
CPT/HCPCS: 36415; 71045; 73552; 73562; 80048; 80076; 81001; 81003; 83735; 85025; 85610; 85730; 86850; 86900; 86901; 87635; 93005; 97162; 97166; 99284; 99291; C1713; C1769; J0690; J1100; J1170; J1650; J2250; J2270; J2370; J2405; J3010

== ENCOUNTER → 2020-04-19 09:26 | Outpatient (BNVA) | payer OTHER, MEDICARE, SELFPAY | PROVIDERS: PCP Internal Medicine; Visit Provider Physician Assistant | DX: S72.402D Unspecified fracture of lower end of left femur, subsequent encounter for closed fracture with routine healing (principal) | CPT/HCPCS: 99212 ==

== ENCOUNTER 2020-05-09 14:13 | Outpatient (REF) | payer MEDICARE, SELFPAY ==
--- NOTE | ~2020-05-09 | PE_ITS ---
EXAMINATION: Fluorine-18 FDG PET/CT Scan CLINICAL INDICATION: Subsequent treatment management. Multiple myeloma, restaging. PROCEDURE: 66 minutes following the intravenous administration of 16.3 mCi of fluorine 18 FDG, images of the whole body were obtained using a combined PET/CT scanner with CT scan based attenuation correction. No oral contrast was administered. No intravenous contrast was administered. Transverse, coronal, sagittal, and volume reconstruction projections were obtained. The patient's blood glucose as determined by a finger stick, was 123 mg/dl immediately prior to injection. Total CT exam dose-length product 253.53 mGy-cm * These CT images were obtained using dose optimization techniques as appropriate, variously including the following: Automated exposure control * Adjustment of mA and/or kV according to patient size (this includes techniques or standardized protocols for targeted exams where dose is matched to indication/reason for exam; i.e. extremities or head) * Use of iterative reconstruction technique COMPARISON: The previous PET CT scan dated 04/09/2018 is available for comparison. FINDINGS: (Slice numbers described in this report are numbered superiorly to inferiorly with slice #1 in the head) NECK AND VISUALIZED HEAD: Several FDG avid foci are present in the head. Feeding) a focus in the left posterior parietal calvarium showing SUVmax 11.9, slice 80/355. This is associated with a subtle irregular lytic lesion on the corresponding CT images. There is an additional FDG avid focus in the right frontal calvarium just lateral to the midline with only weak FDG activity that corresponds to a 1.1 cm lytic lesion that extends into the outer table but not the inner table at this site. Superficial to this there is a soft tissue density in the adjacent right frontal scalp the measures approximately 2.7 x 0.9 cm. Lateral and slightly superior to this focus in the right frontal calvarium 2 adjacent subcentimeter lytic calvarial lesions are present in the show mild FDG activity also, best seen in slice 11/355. In addition to these a more intense focus of FDG activity is present which appears to be in the right parasagittal frontal cerebral cortex, but this may be an extra-axial lesion. Subtle increased density is present at this site on the CT images which appears to be clearly separate from the adjacent calvarium. All of these foci of abnormal FDG activity are new compared to the 04/09/[address] scan, and in addition, the CT lytic osseous lesions were not present on that study. There is an additional small focus of mildly increased FDG activity in or adjacent to the posterior inferior aspect of the right maxillary sinus, SUVmax 6.5, slice 46/355. There is no definite osseous CT abnormality at this site but there is mild mucosal thickening in the adjacent right maxillary sinus that was not present on 04/09/2018. There is now only minimal mucosal thickening posteriorly in the base of the left maxillary sinus, but the previously there was partial opacification of the latter. There is no abnormal FDG activity in the left maxillary sinus region. There is mildly increased activity in the ramus of the left side of the mandible with no corresponding CT abnormality. No other foci of abnormal FDG activity are present in the neck or visualized No additional foci of abnormal FDG activity are present in the neck or head. There is no cervical lymphadenopathy. THORAX: Multiple osseous lesions are subsequently discussed. No FDG avid parenchymal lung lesions are visualized. There is some focal pleural thickening adjacent to the right seventh interspace, slice 92/355 with no significant FDG activity. There is no pleural or pericardial fluid, or pneumothorax. There is no mediastinal, supraclavicular, or axillary lymphadenopathy. ABDOMEN AND PELVIS: Osseous lesions discussed subsequently. The liver, gallbladder, spleen, kidneys, adrenal glands and pancreas appear unremarkable. There is diverticulosis without evidence of diverticulitis. The hollow viscera are otherwise unremarkable. The pelvic organs are unremarkable. A small stable appearing fat-containing ventral hernia is noted. There is no retroperitoneal, mesenteric, pelvic or inguinal lymphadenopathy. MUSCULOSKELETAL: In addition to the previously described calvarial lesions, multiple FDG avid osseous lesions are present, and these appear new compared to 04/09/2018. There is also a new intramedullary suly and stabilizing screws in the left femoral shaft extending from its distal aspect to approximately the mid shaft. The most intense FDG avid lesions are present in the distal left femur showing SUVmax 12.0, slice 281/355 and in the proximal shaft of the right tibia showing SUVmax 11.5, slice 317/355. Multiple additional FDG avid lesions are present in the bilateral femurs, the left tibia, and in multiple foci in both humeri. There are multiple FDG avid foci in the mid and lower thoracic spine, in the right clavicle, most prominently medially adjacent to the sternoclavicular joint and several sternal lesions are present. Multiple FDG avid rib lesions, predominantly on the right, are also noted and some of these may be associated with fractures on the CT images. There is a large mildly FDG avid lesion in the left iliac bone, probably associated with subtle lytic abnormality, SUVmax 4.7, slice 180/355 and an additional FDG avid lesion is present in the right sacral ala, SUVmax 6.4, slice 177/355. VASCULAR: Diffuse vascular calcifications including coronary are noted. PET/PET CT fusion skull to thigh IMPRESSION: 1. Multiple new FDG avid osseous lesions are present as described above. These include extensive abnormalities in the long bones of the upper and lower extremities, the spine, pelvis, and calvarium as well as the thoracic cage. The findings represent a very significant progression of metastatic malignant disease. 2. There is an additional lesion that appears to involve the right frontal cerebral cortex, possibly with extra-axial or meningeal extension. This appears separate from calvarial lesions present as described above. Further characterization of this to better localize with MRI of the head performed without and with intravenous contrast is recommended.
== END 2020-05-09 14:14 | disposition home or self-care (01) ==
LOC: HO.PET 14:13
PROVIDERS: Visit Provider Internal Medicine
DX: Z13.89 Encounter for screening for other disorder (principal)

== ENCOUNTER 2020-05-17 11:56 | Outpatient (REF) | payer MEDICARE, SELFPAY ==
--- NOTE | ~2020-05-17 | XR_ITS ---
EXAMINATION: XR KNEE, LEFT CLINICAL INFORMATION: Distal left femoral fracture, status post ORIF, follow-up. COMPARISON: Left femoral/knee radiographs dated 04/05/2020. TECHNIQUE: Four views of the left knee. FINDINGS: The patient is status post distal femoral ORIF with intramedullary nail transfixing a distal femoral metaphysis fracture showing good anatomic alignment with no evidence for hardware malfunction. Adjacent callus formation is seen. Moderate to severe tricompartmental degenerative joint changes are seen most pronounced in the medial femoral-tibial compartment. There is a trace suprapatellar joint effusion. Moderate soft tissue swelling is seen. XR/XR knee LT 2V IMPRESSION: 1. Overall good anatomic alignment in the distal femur status post ORIF with evidence for interval healing. 2. Moderate to severe tricompartmental left knee degenerative joint changes.
== END 2020-05-17 11:57 | disposition home or self-care (01) ==
LOC: HO.HOSX 11:56
PROVIDERS: Visit Provider Physician Assistant
DX: S72.402D Unspecified fracture of lower end of left femur, subsequent encounter for closed fracture with routine healing (principal); X58.XXXD Exposure to other specified factors, subsequent encounter; I10 Essential (primary) hypertension; E78.5 Hyperlipidemia, unspecified; K21.9 Gastro-esophageal reflux disease without esophagitis; Z88.8 Allergy status to other drugs, medicaments and biological substances
CPT/HCPCS: 73560; 99212

== ENCOUNTER 2020-05-22 10:17 | Emergency (ER) | payer MEDICARE, SELFPAY ==
--- NOTE | ~2020-05-22 | XR_ITS ---
EXAMINATION: XR CHEST CLINICAL INFORMATION: Weakness COMPARISON: Previous chest x-ray 04/05/2020 TECHNIQUE: Frontal view of the chest was obtained. FINDINGS: The cardiac and mediastinal contours are stable. The lungs are clear. There is no pleural effusion or pneumothorax. There are degenerative changes of the spine. There is a right jugular port with tip projecting over the SVC. XR/XR chest 1V IMPRESSION: No evidence for acute disease in the chest.
--- NOTE | 2020-05-22 10:21 | ED_ITS ---
HPI - Weakness General Chief complaint: Weakness <Ian Almeida MD - Last Filed: 05/22/20 16:49> Stated complaint: LLE SWELLING <Ian Almeida MD - Last Filed: 05/22/20 16:49> Time Seen by Provider: 05/22/20 10:21 <Ian Almeida MD - Last Filed: 05/22/20 16:49> Source: patient and EMS <Ian Almeida MD - Last Filed: 05/22/20 16:49> Mode of arrival: EMS <Ian Almeida MD - Last Filed: 05/22/20 16:49> Limitations: no limitations <Ian Almeida MD - Last Filed: 05/22/20 16:49> History of Present Illness HPI Narrative: patient is feeling like she is too weak to care for herself, broke her femur in March recuperating at her sisters but feels like things are worse <Ian Almeida MD - Last Filed: 05/22/20 16:49> MD Complaint: generalized weakness <Ian Almeida MD - Last Filed: 05/22/20 16:49> Onset (ago): week(s) <Ian Almeida MD - Last Filed: 05/22/20 16:49> Duration: constant <Ian Almeida MD - Last Filed: 05/22/20 16:49> Location: LLE and RLE <Ian Almeida MD - Last Filed: 05/22/20 16:49> Severity: severe <Ian Almeida MD - Last Filed: 05/22/20 16:49> Related Data Home medications: Home Medications Medication Instructions Recorded Confirmed amlodipine 10 mg PO DAILY 01/05/20 05/23/20 atorvastatin 20 mg PO BEDTIME 01/05/20 05/23/20 calcium carbonate [Antacid Ext Str 1 tab PO BID 01/05/20 05/23/20 (calcium carb)] docusate sodium [DOK] 100 mg PO BEDTIME 01/05/20 05/23/20 omeprazole 20 mg DAILY 01/05/20 05/23/20 tramadol 1 tab PO Q12H PRN 04/05/20 05/23/20 Previous Rx's Medication Instructions Recorded potassium chloride 10 meq PO DAILY #30 tab 02/02/20 ferrous gluconate 236 mg PO BID #60 tab 04/08/20 oxycodone 10 mg PO Q4H #20 tab 04/08/20 polyethylene glycol 3350 [Miralax] 17 g PO DAILY 4 Days #68 g 04/08/20 Pomalyst 4 mg PO DAILY #21 cap 05/05/20 enoxaparin 40 mg/0.4 mL 40 mg SUBCUT Q24H 42 Days #16.8 ml 05/18/20 subcutaneous syringe <Ian Almeida MD - Last Filed: 05/22/20 16:49> Allergies/Adverse reactions: Allergies Allergy/AdvReac Type Severity Reaction Status Date / Time lenalidomide [From REVLIMID] Allergy Intermediate RASH HEAD Verified 05/17/20 13:47 TO TOE <Ian Almeida MD - Last Filed: 05/22/20 16:49> Review of Systems Constitutional: Constitutional: Reports no additional constitutional complaints <Ian Almeida MD - Last Filed: 05/22/20 16:49> Eyes: Eyes: Reports no additional eye complaints <Ian Almeida MD - Last Filed: 05/22/20 16:49> ENT: Denies dizziness <Ian Almeida MD - Last Filed: 05/22/20 16:49> Cardiovascular: Cardiovascular: Reports no additional cardiovascular complaints <Ian Almeida MD - Last Filed: 05/22/20 16:49> Respiratory: Respiratory: Reports as per HPI <Ian Almeida MD - Last Filed: 05/22/20 16:49> Gastrointestinal: Gastrointestinal: Reports no additional gastrointestinal complaints <Ian Almeida MD - Last Filed: 05/22/20 16:49> Genitourinary: Genitourinary: Reports no additional female genitourinary complaints <Ian Almeida MD - Last Filed: 05/22/20 16:49> Musculoskeletal: Musculoskeletal: Reports no additional musculoskeletal complaints <Ian Almeida MD - Last Filed: 05/22/20 16:49> Integumentary/Breasts: Skin/Breast: Denies rash <Ian Almeida MD - Last Filed: 05/22/20 16:49> Neurologic: Reports system reviewed and no additional complaints, except as documented, Denies dizziness and Denies Sensory deficit (Neuro) <Ian Almeida MD - Last Filed: 05/22/20 16:49> Psychiatric: Psychiatric: Denies anxiety <Ian Almeida MD - Last Filed: 05/22/20 16:49> FORMERLY [facility], [facility] Past Medical History Medical History: Medical History GERD (gastroesophageal reflux disease) History of IBS HTN (hypertension) Hx of multiple myeloma Hyperlipidemia Right humeral fracture Thrombocytopenia <Ian Almeida MD - Last Filed: 05/22/20 16:49> Surgical History: Surgical History H/O hernia repair History of esophagogastroduodenoscopy (EGD) History of left knee surgery History of right knee surgery Previous section <Ian Almeida MD - Last Filed: 05/22/20 16:49> Family History Family History: Family History Father Bladder cancer Mother ESRD (end stage renal disease) on dialysis <Ian Almeida MD - Last Filed: 05/22/20 16:49> Social History Social History: Social History Household Members: Family Housing: House Alcohol intake: never Smoking Status: Never smoker Smoked in Last 30 Days: No Second Hand Smoke Exposure: No Use of substances other than those prescribed or required for medical reasons: No Advance Directives: Yes Advance Directives on File: Yes Advance Directives Date on File: 05/02/20 service: No Current occupational status: retired <Ian Almeida MD - Last Filed: 05/22/20 16:49> Physical Exam Vital Signs: Vital Signs: Last Vital Signs Temp 99.2 F 05/22/20 15:42 Pulse 98 05/23/20 03:14 Resp 16 05/23/20 03:14 BP 128/78 05/23/20 03:14 Pulse Ox 98 05/22/20 20:00 Body Mass Index 33.0 <Ian Almeida MD - Last Filed: 05/22/20 16:49> Vital Signs: Last Vital Signs Temp 99.2 F 05/22/20 15:42 Pulse 98 05/23/20 03:14 Resp 16 05/23/20 03:14 BP 128/78 05/23/20 03:14 Pulse Ox 98 05/22/20 20:00 Body Mass Index 33.0 <José Miguel Coronel MD - Last Filed: 05/22/20 22:47> Vital Signs: Last Vital Signs Temp 99.2 F 05/22/20 15:42 Pulse 98 05/23/20 03:14 Resp 16 05/23/20 03:14 BP 128/78 05/23/20 03:14 Pulse Ox 98 05/22/20 20:00 Body Mass Index 33.0 <Luna Dumont DO - Last Filed: 05/23/20 07:02> Const: Other: patient with short stature but everything in proportion <Ian Almeida MD - Last Filed: 05/22/20 16:49> Orientation/consciousness: oriented to person and patient oriented x3 <Ian Almeida MD - Last Filed: 05/22/20 16:49> Limitations: no limitations <Ian Almeida MD - Last Filed: 05/22/20 16:49> HENMT: Head: Yes normal to inspection <Ian Almeida MD - Last Filed: 05/22/20 16:49> Ears: external ears normal <Ian Almeida MD - Last Filed: 05/22/20 16:49> General nose exam: Normal external nose present <Ian Almeida MD - Last Filed: 05/22/20 16:49> Mouth: Normal oral and palatal mucosa present and oropharynx normal <Ian Almeida MD - Last Filed: 05/22/20 16:49> Throat: Yes posterior oropharynx normal <Ian Almeida MD - Last Filed: 05/22/20 16:49> Eyes: General: appearance normal, both eyes and all related structures <Ian Almeida MD - Last Filed: 05/22/20 16:49> Neck: Other: supple <Ian Almeida MD - Last Filed: 05/22/20 16:49> Neck: Yes normal visual inspection <Ian Almeida MD - Last Filed: 05/22/20 16:49> Chest: Chest palpation & inspection: normal inspection of the chest <Ian Almeida MD - Last Filed: 05/22/20 16:49> Resp: Auscultation: clear to auscultation bilaterally <Ian Almeida MD - Last Filed: 05/22/20 16:49> Cardio: Jugular venous distension: no JVD <Ian Almeida MD - Last Filed: 05/22/20 16:49> Rate: regular rate <Ian Almeida MD - Last Filed: 05/22/20 16:49> Rhythm: regular rhythm <Ian Almeida MD - Last Filed: 05/22/20 16:49> Heart sounds: S1 normal heart sound present and S2 normal heart sound present <Ian Almeida MD - Last Filed: 05/22/20 16:49> GI: Inspection: Yes normal to inspection <Ian Almeida MD - Last Filed: 05/22/20 16:49> Palpation (GI): Soft to palpation, nontender and No hepatosplenomegaly present <Ian Almeida MD - Last Filed: 05/22/20 16:49> Auscultation: normal bowel sounds <Ian Almeida MD - Last Filed: 05/22/20 16:49> : General: Yes no CVA tenderness <Ian Almeida MD - Last Filed: 05/22/20 16:49> Back/Spine/Pelvis: Back: no CVA tenderness <Ian Almeida MD - Last Filed: 05/22/20 16:49> Skin: General skin exam: no rashes or lesions noted <Ian Almeida MD - Last Filed: 05/22/20 16:49> Neuro: General: oriented to person and patient oriented x3 <Ian Almeida MD - Last Filed: 05/22/20 16:49> Cranial nerves: Yes CN's II-XII intact bilaterally <Ian Almeida MD - Last Filed: 05/22/20 16:49> Motor exam (neuro): 5/5 motor strength present throughout <Ian Almeida MD - Last Filed: 05/22/20 16:49> Sensory Exam: No Sensory deficit (Neuro) <Ian Almeida MD - Last Filed: 05/22/20 16:49> Extrem: Other: well healed left femure wound no swelling for one leg compared to the other <Ian Almeida MD - Last Filed: 05/22/20 16:49> Psych: Appearance: grossly normal <Ian Almeida MD - Last Filed: 05/22/20 16:49> Course Course Course Narrative: patient with chronic anemia, UA contaminated will not treat will hold for Case management placement <Ian Almeida MD - Last Filed: 05/22/20 16:49> 05/23/20 7am - no acute events overnight, on ceftin for possible UTI cult ure pending, VS stable, remains in observation in the ED undergoing further care as well as workup for possible placement will discuss plans with CM today <Luna Dumont DO - Last Filed: 05/23/20 07:02> Reevaluation(s) Reevaluation #1: Patient placed in physician observation at 4:30 pm The indication for observation is that the patient needs more time to see if she is safe to be discharged home or needs placement. At this time the patient is well developed well nourished, lungs clear, CV RRR, abd nontender, neuro is intact <Ian Almeida MD - Last Filed: 05/22/20 16:49> Patient urine suggestive of possible UTI will give her Ceftin 500 mg twice daily pending culture. Also patient complaining of pain all our will give her oxycodone as needed every 6 hours <José Miguel Coronel MD - Last Filed: 05/22/20 22:47> Time: 16:48 <Ian Almeida MD - Last Filed: 05/22/20 16:49> 22:47 <José Miguel Coronel MD - Last Filed: 05/22/20 22:47> MDM - Weakness MDM Narrative Medical decision making narrative: Labs and work up is normal will hold for case management evaluation <Ian Almeida MD - Last Filed: 05/22/20 16:49> Differential Diagnosis Differential diagnosis: Likely UTI, anemia and dehydration <Ian Almeida MD - Last Filed: 05/22/20 16:49> Lab Data Result diagrams: : 05/22/20 11:01 05/22/20 11:01 <Ian Almeida MD - Last Filed: 05/22/20 16:49> Labs: Lab Results 05/22/20 05/22/20 05/22/20 Range/Units 11:01 11:01 15:45 WBC 5.4 (4.8-10.8) X10*3/uL RBC 2.95 L (4.20-5.50) X10*6/uL Hgb 8.3 L (12.0-16.0) g/dl Hct 26.5 L (37-47) % MCV 89.8 (80-98) fL MCH 28.1 (27.0-33.0) pg MCHC 31.3 (31.0-35.0) g/dl RDW 15.7 (11.0-16.0) % Plt Count 225 (160-400) X10*3/uL MPV 10.2 (9.4-12.3) fL Immature Gran % (Auto) 0.6 H (0.0-0.4) % Neut % (Auto) 65.3 (45-73) % Lymph % (Auto) 19.2 L (20-40) % [place] % (Auto) 13.8 H (2-11) % Eos % (Auto) 0.9 (0-4) % Baso % (Auto) 0.2 (0-2) % Lymph # (Auto) 1.0 L (1.2-4.9) X10*3/uL [place] # (Auto) 0.8 (0.1-1.2) X10*3/uL Eos # (Auto) 0.1 (0.0-0.4) X10*3/uL Baso # (Auto) 0.0 (0.0-0.2) X10*3/uL Abs Immat Gran (auto) 0.03 (0.00-0.03) X10*3/uL Absolute Neuts (auto) 3.6 (2.0-8.3) X10*3/uL Absolute Nucleated RBC 0.000 (0.0-0.012) X10*3/uL Nucleated RBC % (auto) 0.0 (0.0-0.2) /100WBC Sodium 139 (135-145) mmol/L Potassium 3.4 (3.3-5.1) mmol/L Chloride 100 (96-108) mmol/L Carbon Dioxide 25 (22-29) mmol/L Anion Gap 17 (12-20) BUN 14 D (9-16) mg/dL Creatinine 0.85 (0.5-1.4) mg/dL Estim Creat Clear Calc 38.7 Estimated GFR > 60 Random Glucose 99 (60-115) mg/dL Calcium 10.4 H D (8.4-10.2) mg/dL Urine Color Urine Appearance Urine pH (5.0-8.0) Ur Specific [place] (1.005-1.025) Urine Protein (NEG-TRACE) MG/DL Urine Glucose (UA) (NEG) MG/DL Urine Ketones (NEG) MG/DL Urine Blood (NEG) Urine Nitrite (NEG) Ur Leukocyte Esterase (NEG) Urine RBC (0) /HPF Urine WBC (0-4) /HPF Ur Squamous Epith Cells /LPF Urine Bacteria /LPF COVID-19 (ABDOULAYE) Negative (Negative) COVID-19 Clin Com See Note 05/22/20 Range/Units 15:57 WBC (4.8-10.8) X10*3/uL RBC (4.20-5.50) X10*6/uL Hgb (12.0-16.0) g/dl Hct (37-47) % MCV (80-98) fL MCH (27.0-33.0) pg MCHC (31.0-35.0) g/dl RDW (11.0-16.0) % Plt Count (160-400) X10*3/uL MPV (9.4-12.3) fL Immature Gran % (Auto) (0.0-0.4) % Neut % (Auto) (45-73) % Lymph % (Auto) (20-40) % [place] % (Auto) (2-11) % Eos % (Auto) (0-4) % Baso % (Auto) (0-2) % Lymph # (Auto) (1.2-4.9) X10*3/uL [place] # (Auto) (0.1-1.2) X10*3/uL Eos # (Auto) (0.0-0.4) X10*3/uL Baso # (Auto) (0.0-0.2) X10*3/uL Abs Immat Gran (auto) (0.00-0.03) X10*3/uL Absolute Neuts (auto) (2.0-8.3) X10*3/uL Absolute Nucleated RBC (0.0-0.012) X10*3/uL Nucleated RBC % (auto) (0.0-0.2) /100WBC Sodium (135-145) mmol/L Potassium (3.3-5.1) mmol/L Chloride (96-108) mmol/L Carbon Dioxide (22-29) mmol/L Anion Gap (12-20) BUN (9-16) mg/dL Creatinine (0.5-1.4) mg/dL Estim Creat Clear Calc Estimated GFR Random Glucose (60-115) mg/dL Calcium (8.4-10.2) mg/dL Urine Color YELLOW Urine Appearance CLOUDY Urine pH 6.0 (5.0-8.0) Ur Specific [place] 1.025 (1.005-1.025) Urine Protein 1+ H (NEG-TRACE) MG/DL Urine Glucose (UA) NEG (NEG) MG/DL Urine Ketones NEG (NEG) MG/DL Urine Blood TRACE (NEG) Urine Nitrite NEG (NEG) Ur Leukocyte Esterase 1+ H (NEG) Urine RBC 1-4 (0) /HPF Urine WBC 10-14 H (0-4) /HPF Ur Squamous Epith Cells 3+ /LPF Urine Bacteria 2+ /LPF COVID-19 (ABDOULAYE) (Negative) COVID-19 Clin Com <Ian Almeida MD - Last Filed: 05/22/20 16:49> Lab Results 05/22/20 05/22/20 05/22/20 Range/Units 11:01 11:01 15:45 WBC 5.4 (4.8-10.8) X10*3/uL RBC 2.95 L (4.20-5.50) X10*6/uL Hgb 8.3 L (12.0-16.0) g/dl Hct 26.5 L (37-47) % MCV 89.8 (80-98) fL MCH 28.1 (27.0-33.0) pg MCHC 31.3 (31.0-35.0) g/dl RDW 15.7 (11.0-16.0) % Plt Count 225 (160-400) X10*3/uL MPV 10.2 (9.4-12.3) fL Immature Gran % (Auto) 0.6 H (0.0-0.4) % Neut % (Auto) 65.3 (45-73) % Lymph % (Auto) 19.2 L (20-40) % [place] % (Auto) 13.8 H (2-11) % Eos % (Auto) 0.9 (0-4) % Baso % (Auto) 0.2 (0-2) % Lymph # (Auto) 1.0 L (1.2-4.9) X10*3/uL [place] # (Auto) 0.8 (0.1-1.2) X10*3/uL Eos # (Auto) 0.1 (0.0-0.4) X10*3/uL Baso # (Auto) 0.0 (0.0-0.2) X10*3/uL Abs Immat Gran (auto) 0.03 (0.00-0.03) X10*3/uL Absolute Neuts (auto) 3.6 (2.0-8.3) X10*3/uL Absolute Nucleated RBC 0.000 (0.0-0.012) X10*3/uL Nucleated RBC % (auto) 0.0 (0.0-0.2) /100WBC Sodium 139 (135-145) mmol/L Potassium 3.4 (3.3-5.1) mmol/L Chloride 100 (96-108) mmol/L Carbon Dioxide 25 (22-29) mmol/L Anion Gap 17 (12-20) BUN 14 D (9-16) mg/dL Creatinine 0.85 (0.5-1.4) mg/dL Estim Creat Clear Calc 38.7 Estimated GFR > 60 Random Glucose 99 (60-115) mg/dL Calcium 10.4 H D (8.4-10.2) mg/dL Urine Color Urine Appearance Urine pH (5.0-8.0) Ur Specific [place] (1.005-1.025) Urine Protein (NEG-TRACE) MG/DL Urine Glucose (UA) (NEG) MG/DL Urine Ketones (NEG) MG/DL Urine Blood (NEG) Urine Nitrite (NEG) Ur Leukocyte Esterase (NEG) Urine RBC (0) /HPF Urine WBC (0-4) /HPF Ur Squamous Epith Cells /LPF Urine Bacteria /LPF COVID-19 (ABDOULAYE) Negative (Negative) COVID-19 Clin Com See Note 05/22/20 Range/Units 15:57 WBC (4.8-10.8) X10*3/uL RBC (4.20-5.50) X10*6/uL Hgb (12.0-16.0) g/dl Hct (37-47) % MCV (80-98) fL MCH (27.0-33.0) pg MCHC (31.0-35.0) g/dl RDW (11.0-16.0) % Plt Count (160-400) X10*3/uL MPV (9.4-12.3) fL Immature Gran % (Auto) (0.0-0.4) % Neut % (Auto) (45-73) % Lymph % (Auto) (20-40) % [place] % (Auto) (2-11) % Eos % (Auto) (0-4) % Baso % (Auto) (0-2) % Lymph # (Auto) (1.2-4.9) X10*3/uL [place] # (Auto) (0.1-1.2) X10*3/uL Eos # (Auto) (0.0-0.4) X10*3/uL Baso # (Auto) (0.0-0.2) X10*3/uL Abs Immat Gran (auto) (0.00-0.03) X10*3/uL Absolute Neuts (auto) (2.0-8.3) X10*3/uL Absolute Nucleated RBC (0.0-0.012) X10*3/uL Nucleated RBC % (auto) (0.0-0.2) /100WBC Sodium (135-145) mmol/L Potassium (3.3-5.1) mmol/L Chloride (96-108) mmol/L Carbon Dioxide (22-29) mmol/L Anion Gap (12-20) BUN (9-16) mg/dL Creatinine (0.5-1.4) mg/dL Estim Creat Clear Calc Estimated GFR Random Glucose (60-115) mg/dL Calcium (8.4-10.2) mg/dL Urine Color YELLOW Urine Appearance CLOUDY Urine pH 6.0 (5.0-8.0) Ur Specific [place] 1.025 (1.005-1.025) Urine Protein 1+ H (NEG-TRACE) MG/DL Urine Glucose (UA) NEG (NEG) MG/DL Urine Ketones NEG (NEG) MG/DL Urine Blood TRACE (NEG) Urine Nitrite NEG (NEG) Ur Leukocyte Esterase 1+ H (NEG) Urine RBC 1-4 (0) /HPF Urine WBC 10-14 H (0-4) /HPF Ur Squamous Epith Cells 3+ /LPF Urine Bacteria 2+ /LPF COVID-19 (ABDOULAYE) (Negative) COVID-19 Clin Com <José Miguel Coronel MD - Last Filed: 05/22/20 22:47> Lab Results 05/22/20 05/22/20 05/22/20 Range/Units 11:01 11:01 15:45 WBC 5.4 (4.8-10.8) X10*3/uL RBC 2.95 L (4.20-5.50) X10*6/uL Hgb 8.3 L (12.0-16.0) g/dl Hct 26.5 L (37-47) % MCV 89.8 (80-98) fL MCH 28.1 (27.0-33.0) pg MCHC 31.3 (31.0-35.0) g/dl RDW 15.7 (11.0-16.0) % Plt Count 225 (160-400) X10*3/uL MPV 10.2 (9.4-12.3) fL Immature Gran % (Auto) 0.6 H (0.0-0.4) % Neut % (Auto) 65.3 (45-73) % Lymph % (Auto) 19.2 L (20-40) % [place] % (Auto) 13.8 H (2-11) % Eos % (Auto) 0.9 (0-4) % Baso % (Auto) 0.2 (0-2) % Lymph # (Auto) 1.0 L (1.2-4.9) X10*3/uL [place] # (Auto) 0.8 (0.1-1.2) X10*3/uL Eos # (Auto) 0.1 (0.0-0.4) X10*3/uL Baso # (Auto) 0.0 (0.0-0.2) X10*3/uL Abs Immat Gran (auto) 0.03 (0.00-0.03) X10*3/uL Absolute Neuts (auto) 3.6 (2.0-8.3) X10*3/uL Absolute Nucleated RBC 0.000 (0.0-0.012) X10*3/uL Nucleated RBC % (auto) 0.0 (0.0-0.2) /100WBC Sodium 139 (135-145) mmol/L Potassium 3.4 (3.3-5.1) mmol/L Chloride 100 (96-108) mmol/L Carbon Dioxide 25 (22-29) mmol/L Anion Gap 17 (12-20) BUN 14 D (9-16) mg/dL Creatinine 0.85 (0.5-1.4) mg/dL Estim Creat Clear Calc 38.7 Estimated GFR > 60 Random Glucose 99 (60-115) mg/dL Calcium 10.4 H D (8.4-10.2) mg/dL Urine Color Urine Appearance Urine pH (5.0-8.0) Ur Specific [place] (1.005-1.025) Urine Protein (NEG-TRACE) MG/DL Urine Glucose (UA) (NEG) MG/DL Urine Ketones (NEG) MG/DL Urine Blood (NEG) Urine Nitrite (NEG) Ur Leukocyte Esterase (NEG) Urine RBC (0) /HPF Urine WBC (0-4) /HPF Ur Squamous Epith Cells /LPF Urine Bacteria /LPF COVID-19 (ABDOULAYE) Negative (Negative) COVID-19 Clin Com See Note 05/22/20 Range/Units 15:57 WBC (4.8-10.8) X10*3/uL RBC (4.20-5.50) X10*6/uL Hgb (12.0-16.0) g/dl Hct (37-47) % MCV (80-98) fL MCH (27.0-33.0) pg MCHC (31.0-35.0) g/dl RDW (11.0-16.0) % Plt Count (160-400) X10*3/uL MPV (9.4-12.3) fL Immature Gran % (Auto) (0.0-0.4) % Neut % (Auto) (45-73) % Lymph % (Auto) (20-40) % [place] % (Auto) (2-11) % Eos % (Auto) (0-4) % Baso % (Auto) (0-2) % Lymph # (Auto) (1.2-4.9) X10*3/uL [place] # (Auto) (0.1-1.2) X10*3/uL Eos # (Auto) (0.0-0.4) X10*3/uL Baso # (Auto) (0.0-0.2) X10*3/uL Abs Immat Gran (auto) (0.00-0.03) X10*3/uL Absolute Neuts (auto) (2.0-8.3) X10*3/uL Absolute Nucleated RBC (0.0-0.012) X10*3/uL Nucleated RBC % (auto) (0.0-0.2) /100WBC Sodium (135-145) mmol/L Potassium (3.3-5.1) mmol/L Chloride (96-108) mmol/L Carbon Dioxide (22-29) mmol/L Anion Gap (12-20) BUN (9-16) mg/dL Creatinine (0.5-1.4) mg/dL Estim Creat Clear Calc Estimated GFR Random Glucose (60-115) mg/dL Calcium (8.4-10.2) mg/dL Urine Color YELLOW Urine Appearance CLOUDY Urine pH 6.0 (5.0-8.0) Ur Specific [place] 1.025 (1.005-1.025) Urine Protein 1+ H (NEG-TRACE) MG/DL Urine Glucose (UA) NEG (NEG) MG/DL Urine Ketones NEG (NEG) MG/DL Urine Blood TRACE (NEG) Urine Nitrite NEG (NEG) Ur Leukocyte Esterase 1+ H (NEG) Urine RBC 1-4 (0) /HPF Urine WBC 10-14 H (0-4) /HPF Ur Squamous Epith Cells 3+ /LPF Urine Bacteria 2+ /LPF COVID-19 (ABDOULAYE) (Negative) COVID-19 Clin Com <Luna Dumont DO - Last Filed: 05/23/20 07:02> Discharge Plan Discharge Prescriptions: No Action atorvastatin 20 mg tablet 20 mg PO BEDTIME RF: 0 calcium carbonate [Antacid Ext Str (calcium carb)] 300 mg (750 mg) tablet,chewable 1 tab PO BID RF: 0 amlodipine 10 mg tablet 10 mg PO DAILY RF: 0 docusate sodium [DOK] 100 mg capsule 100 mg PO BEDTIME RF: 0 omeprazole 20 mg capsule,delayed release(DR/EC) 20 mg DAILY RF: 0 potassium chloride 10 mEq tablet extended release 10 meq PO DAILY Qty: 30 RF: 3 Pomalyst 4 mg Capsule 4 mg PO DAILY Qty: 21 RF: 0 tramadol 50 mg tablet 1 tab PO Q12H PRN (Reason: severe pain) RF: 0 oxycodone 5 mg Tablet 10 mg PO Q4H Qty: 20 RF: 0 polyethylene glycol 3350 [Miralax] 17 gram/dose powder 17 g PO DAILY 4 Days Qty: 68 RF: 0 ferrous gluconate 236 mg (27 mg iron) tablet 236 mg PO BID Qty: 60 RF: 0 enoxaparin 40 mg/0.4 mL syringe 40 mg subcut Q24H 42 Days Qty: 16.8 RF: 0 <Ian Almeida MD - Last Filed: 05/22/20 16:49>
[2020-05-22 10:24] VITALS: BP 129/71; BP 130/73; PULSE 100; PULSE 102; RESP 16; TEMP 37.6; O2SAT 100; O2SAT 96; BMI 33.0
[2020-05-22 11:07] LABS: Basophils Percent Auto 0.2 % (0-2); Eosinophils Absolute Auto 0.1 X10*3/uL (0.0-0.4); Eosinophils Percent Auto 0.9 % (0-4); Hematocrit 26.5 % (37-47); Hemoglobin 8.3 g/dl (12.0-16.0); Imm Gran Abs Auto 0.03 X10*3/uL (0.00-0.03); Imm Gran Pct Auto 0.6 % (0.0-0.4); Lymphocytes Percent Auto 19.2 % (20-40); MANUAL DIFF FLAG NO; Mean Corpuscular HGB Conc 31.3 g/dl (31.0-35.0); Mean Corpuscular Hemoglobin 28.1 pg (27.0-33.0); Mean Corpuscular Volume 89.8 fL (80-98); Mean Platelet Volume 10.2 fL (9.4-12.3); Monocytes Absolute Auto 0.8 X10*3/uL (0.1-1.2); Monocytes Percent Auto 13.8 % (2-11); Neutrophils Absolute Auto 3.6 X10*3/uL (2.0-8.3); Neutrophils Percent Auto 65.3 % (45-73); Platelet Count 225 X10*3/uL (160-400); Red Blood Count 2.95 X10*6/uL (4.20-5.50); Red Cell Distribution Width 15.7 % (11.0-16.0); White Blood Count 5.4 X10*3/uL (4.8-10.8)
[2020-05-22 11:51] LABS: Anion Gap 17 (12-20); Blood Urea Nitrogen 14 mg/dL (9-16); Calcium 10.4 mg/dL (8.4-10.2); Carbon Dioxide 25 mmol/L (22-29); Chloride 100 mmol/L (96-108); Creatinine Clr Calc Pharmacy 38.7; Estimated Glomerular Filt Rate > 60; Glucose Random 99 mg/dL (60-115); Potassium 3.4 mmol/L (3.3-5.1); Sodium 139 mmol/L (135-145)
[2020-05-22 14:46] VITALS: BP 130/73; PULSE 102; O2SAT 96
[2020-05-22 15:42] VITALS: BP 129/69; PULSE 100; RESP 20; TEMP 37.3; O2SAT 95
--- NOTE | 2020-05-22 15:44 | MHC.CM.ED ---
Received case management consult from Dr Almeida. Patient came to ER due to leg swelling and weakness. Work up has been essentially negative. Physical therapy eval completed. Rehab is recommended. Met with patient in regards to discharge planning. Patient was discharged [place] [facility] [place] [facility] [place] She was discharged to her sisters home on 04/25 with Marino RAMOS for palliative care. Patient woke up and was unable to get herself out of bed. Patient is requesting referral to [facility] rehab. Referral also broadcasted to all nursing home facilities within 10 [address] of patient's zip code, just in case [facility] is not able to offer a bed. [facility] is requesting UA, CXR and Covid screen. Dr Almeida aware and has ordered these. Continue to monitor for d/c needs.
[2020-05-22 16:09] LABS: Glucose Urine UA NEG (NEG); Leukocyte Esterase Urine 1+ (NEG); Nitrite Urine NEG (NEG); Specific Gravity - Urine 1.025 (1.005-1.025); UACC Culture Trigger YES; Urine Blood TRACE (NEG); Urine Ketones NEG (NEG); Urine Protein 1+ MG/DL (NEG-TRACE)
[2020-05-22 16:12] LABS: COVID-19 Test Negative (Negative); IDNOW Serial# 9DD0AD1C
[2020-05-22 16:14] LABS: Appearance Urine CLOUDY; Color Urine YELLOW
[2020-05-22 16:27] LABS: Bacteria Urine 2+ /LPF; Squamous Epithelial Cell Urine 3+ /LPF
--- NOTE | 2020-05-22 19:15 | PC.NURSE ---
ASSUMED CARE OF PT. PT WAKES TO VERBAL STIMULI, RESPIRATIONS EASY, N/L. SKIN W/D. PT C/O PAIN TO LEFT LEG. AWARE.
--- NOTE | 2020-05-22 19:20 | PC.NURSE ---
ASSUMED CARE OF PT. PT C/O LEFT LEG PAIN. PT ALERT, RESPIRATIONS EASY, N/L. SKIN W/D. WILL CONTINUE TO MONITOR PT.
[2020-05-22 20:00] VITALS: BP 124/74; PULSE 101; RESP 16; O2SAT 98
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
--- NOTE | 2020-05-22 20:39 | MHC.CM.ED ---
Clinicals uploaded to [facility] at 1650-negative CXR and Covid. Awaiting response.
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
--- NOTE | 2020-05-22 20:44 | MHC.CM.ED ---
Pt has not had the Covid Vaccine yet. CM to follow for d/c needs
[2020-05-22] MEDS: oxyCODONE HCl Immed Release 5 MG TABLET PO (23:11)
--- NOTE | 2020-05-22 23:15 | PC.NURSE ---
PT RATING PAIN /10. PT MEDICATED FOR LEG PAIN PER EMAR.
--- NOTE | 2020-05-22 23:46 | PC.NURSE ---
PT RESTING IN STRETCHER AND STATES MY PAIN IS BETTER . WILL CONTINUE TO MONITOR PT.
[2020-05-23] VITALS: BP 120/74; PULSE 102; RESP 16
--- NOTE | 2020-05-23 03:11 | PC.NURSE ---
PT SLEEPING, WAKES TO VERBAL STIMULI, RESPIRATIONS EASY, N/L. SKIN W/D. PT AWAITING FOR CASE MGT IN AM.
[2020-05-23 03:14] VITALS: BP 128/78; PULSE 98; RESP 16
--- NOTE | 2020-05-23 06:23 | PC.NURSE ---
PT RESTING IN STRETCHER IN NAD. PT AWAITING FOR CASE MGT. WILL CONTINUE TO MONITOR PT.
[2020-05-23 08:26] VITALS: BP 150/82; PULSE 99; RESP 18; TEMP 36.7; O2SAT 95
--- NOTE | 2020-05-23 09:05 | MHC.CM.ED ---
[facility] is able to offer a bed today. Patient can leave at 11am. [facility] booked. [facility] with chart. Patient, sister Jacqui, spouse Dannie, Dr Dumont and Key ROSARIO aware. Continue to monitor for d/c needs.
--- NOTE | 2020-05-23 10:45 | MHC.HEMONCSW ---
ML PARTIDA FROM ER FOR STR. UNABLE TO CARE FOR SELF AT HER SISTERS. POSSIBLE UTI, S/P FX FEMUR.
--- NOTE | 2020-06-01 09:18 | MHC.HEMONCSW ---
PATIENT IS AT SHORT TERM REHAB AT [facility]. PHONED, SPOKE WITH MARLENE COON THERE...SHE IS NOT DOING WELL...CONGESTED COUGH, WEAK, UP TO WHEELCHAIR ONLY, GETTING PHYSIO. HAS NO IDEA ABOUT ANY DC GOALS. PHONED, SPOKE WITH SISTER MANA, WHO IS ALSO HEALTH CARE PROXY...VERY CONCERNED...STATES PATIENT IS TOO WEAK FOR ANY CANCER TREATMENTS, PROTECTIVE SERVICES INVESTIGATING EMOTIONAL AND FINANCIAL ABUSE BY AND SON. WILL UPDATE DR. PITTS.
== END 2020-05-23 11:16 | disposition skilled nursing facility (03) ==
PROVIDERS: Emergency Provider Emergency Medicine; PCP Internal Medicine
DX: N39.0 Urinary tract infection, site not specified (principal); R53.1 Weakness; D64.9 Anemia, unspecified; Z79.899 Other long term (current) drug therapy; K21.9 Gastro-esophageal reflux disease without esophagitis; I10 Essential (primary) hypertension; E78.5 Hyperlipidemia, unspecified; Z20.822 Contact with and (suspected) exposure to COVID-19
CPT/HCPCS: 36415; 71045; 80048; 81001; 81003; 85025; 87086; 87635; 97162; 99284; 99285

== ENCOUNTER 2020-06-05 18:08 | Inpatient (IN) | payer MEDICARE, SELFPAY ==
--- NOTE | ~2020-06-05 | CT_ITS ---
EXAMINATION: CT SOFT TISSUE NECK WITHOUT CONTRAST CLINICAL INFORMATION: Airway obstruction. COMPARISON: FDG PET/CT scan to 12/18/2020. TECHNIQUE: Helical imaging was performed in the axial plane with generation of coronal and sagittal reformatted images. This CT examination was performed using dose optimization techniques as appropriate, variously including the following: *Automated exposure control *Adjustment of mA and/or kV according to patient size (this includes techniques or standardized protocols for targeted exams where dose is matched to indication/reason for exam; i.e. extremities or head) *Use of iterative reconstruction technique DLP: 299 mGy-cm FINDINGS: The diagnostic accuracy of this examination is limited due to the absence of intravenous contrast. There is a lobulated lesion of the patient's left vocal fold and irregular circumferential thickening that extends along approximately 2 cm of the subglottic airway best illustrated on axial image 77 of 119 series 2 and on coronal image 37 of 77 series 4. There is no bulky cervical adenopathy. No mediastinal or axillary adenopathy is visualized within the upuqp-le-xjia of this examination. Pharyngeal mucosal spaces are symmetric. Parapharyngeal and retromaxillary fat is preserved. Power Plant Mechanic spaces are symmetric. The parotid and submandibular glands are normal. The tongue base and epiglottis are normal. Preepiglottic fat is preserved. The thyroid gland is normal. The remainder of the visualized visceral soft tissues are unremarkable. Although only partially included within the ilnpl-cj-[id number] of this examination there are multiple lytic osseous lesions within the thoracic spine and relatively extensive paraspinal and pleural-based soft tissue thickening. Small layering right pleural effusion. Although only partially included within the mogto-vp-jwrm of this examination there is asymmetric hypoattenuation within the right frontal white matter suggesting the possibility of intracranial metastatic disease. There is thickening of the left frontal scalp. Multiple suspected lytic changes throughout the skull base. CT/CT soft tissue neck wo con IMPRESSION: There is a lobulated lesion of the patient's left vocal fold and circumferential thickening that extends along a 2 cm segment of the subglottic airway. 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 Correlation with nasolaryngoscopy is therefore recommended for better anatomic assessment of this abnormality. There is abnormal hypoattenuation visualized within the right frontal white matter raising the possibility of intracranial disease. A dedicated brain MRI without and with contrast therefore recommended for better anatomic assessment. There are multiple lytic osseous lesions visualized throughout the fvdxh-xq-jtia of this examination consistent with the patient's clinical history of multiple myeloma.
--- NOTE | ~2020-06-05 | CT_ITS ---
EXAMINATION: CT ANGIOGRAM OF THE CHEST WITH AND WITHOUT CONTRAST (CT PULMONARY ANGIOGRAM FOR PE) CLINICAL INFORMATION: Reason for Exam sob multiple myeloma r/o PE COMPARISON: PET CT exam 05/09/2020 TECHNIQUE: Prior to contrast administration, noncontrast localization images were obtained. Subsequently, multidetector volumetric imaging was performed from the thoracic inlet to below the diaphragms following the administration of 80 mL Omnipaque 350 intravenous contrast. No contrast reaction reported Sagittal, coronal, and MIP oblique sagittal reformatted images were obtained on the CT workstation, uploaded to PACS, and reviewed. This CT examination was performed using dose optimization techniques as appropriate, variously including the following: *Automated exposure control *Adjustment of mA and/or kV according to patient size (this includes techniques or standardized protocols for targeted exams where dose is matched to indication/reason for exam; i.e. extremities or head) *Use of iterative reconstruction technique Total exam dose-length product 271 mGy-cm FINDINGS: QUALITY OF STUDY/CONTRAST BOLUS: Satisfactory. PULMONARY ARTERIES: No central or segmental pulmonary emboli. THORACIC AORTA: No aneurysm or dissection. LUNG: The lungs are well-expanded and clear. With minimal bibasilar compressive atelectasis secondary to bilateral small effusions. No consolidation or mass seen. PLEURA: There is small bilateral pleural effusions slightly greater on the right side MEDIASTINUM: Normal heart size. No pericardial effusion. No hilar or mediastinal lymphadenopathy. No evidence of septal bowing or right heart strain. CHEST WALL/AXILLA: No axillary or internal mammary lymphadenopathy. OSSEOUS STRUCTURES: Multiple lytic lesions involving the thoracic spine, sternum and bilateral RIBS.. UPPER ABDOMEN: Visualized liver, spleen, pancreas are unremarkable. No reflux of contrast into the hepatic veins to suggest elevated right heart pressures. CT/CT angio chest PE protocol IMPRESSION: No evidence of PE. No evidence of aortic dissection or aneurysm. I lateral small pleural effusion with underlying compressive atelectasis. Multiple lytic lesions involving the spine the sternum in the ribs. These were also noted on the previous PET-CT exam 05/10/2020 VTE: negative
--- NOTE | ~2020-06-05 | XR_ITS ---
EXAMINATION: XR CHEST CLINICAL INFORMATION: Hypoxia. Pneumonia versus fluid overload. COMPARISON: May 22, 2020 and April 05, 2020 TECHNIQUE: AP portable view of the chest was obtained. FINDINGS: There is no evidence of acute parenchymal disease, pneumothorax, or pleural effusion. Port catheter is again noted with right internal jugular access and tip in the mid superior vena cava. There is mild stable convex right scoliosis of the thoracic spine convex left scoliosis of the lumbar spine. There is noted to be stable lobular pleural thickening about the right lateral chest wall with question right sixth rib fracture laterally. XR/XR chest 1V IMPRESSION: No acute disease. Right focal pleural thickening.
--- NOTE | ~2020-06-05 | US_ITS ---
EXAMINATION: US VENOUS ULTRASOUND WITH DOPPLER LOWER EXTREMITY, BILATERAL CLINICAL INFORMATION: Pain and edema. COMPARISON: 08.07.2018 TECHNIQUE: Ultrasound of the deep veins is performed from the hip to the calf with compression sonography and color and pulse Doppler assessment. Spectral analysis with color-flow imaging is performed. FINDINGS: RIGHT: There is normal venous compression and respiratory variation and augmented flow. The visualized common femoral vein, superficial femoral vein, profunda femoral vein, popliteal vein, and the trifurcation region shows no evidence of deep venous thrombosis. There is no significant popliteal fossa cyst. LEFT: There is normal venous compression and respiratory variation and augmented flow. The visualized common femoral vein, superficial femoral vein, profunda femoral vein, popliteal vein, and the trifurcation region shows no evidence of deep venous thrombosis. There is no significant popliteal fossa cyst. If the patient's symptoms persist, followup ultrasound in 5 days 7 days might be of value to exclude proximal propagation from a non-visualized calf vein. US/US venous duplex LE BI IMPRESSION: No DVT demonstrated in the bilateral lower extremities.
--- NOTE | 2020-06-05 17:48 | P.HPHOSP_ITS ---
History of Present Illness Date of Service: 06/05/20 Chief Complaint: lethargy weakness 69-year-old female with history of multiple myeloma presented with weakness lethargic [facility] , patient was admitted in March 2020 hip fracture and was discharged to short-term rehab, patient was not getting her chemotherapy after discharge to rehab, patient was becoming more lethargic, labs at facility shows hypercalcemia with calcium of 14, patient was seen in Hematology-Oncology at Clinic repeat labs shows calcium of 13, admission was requested for IV hydration and pamidronate, patient was seen and examined at bedside patient still lethargic but able to tell her name, patient reported weakness, not able to give much history given confusion and being lethargic, patient will be admitted for IV hydration and pamidronate patient is DNR DNI Review of Systems Review of Systems: Yes Unobtainable due to mental status [facility] Medical History GERD (gastroesophageal reflux disease) History of IBS HTN (hypertension) Hx of multiple myeloma Hyperlipidemia Right humeral fracture Thrombocytopenia Family History Father Bladder cancer Mother ESRD (end stage renal disease) on dialysis Surgical History H/O hernia repair History of esophagogastroduodenoscopy (EGD) History of left knee surgery History of right knee surgery Previous section Social History Household Members: Family Housing: Residential Alcohol intake: never Smoking Status: Never smoker Second Hand Smoke Exposure: No Use of substances other than those prescribed or required for medical reasons: No Currently Displaying Signs/Symptoms of Drug Intoxication Withdrawal: No Advance Directives: Yes Advance Directives on File: Yes Advance Directives Date on File: 05/02/20 Do you have thoughts of harming others: None Do you have a plan to hurt others: No Plan Recently lost weight without trying: Unsure service: No Current occupational status: retired Meds Allergies Allergy/AdvReac Type Severity Reaction Status Date / Time lenalidomide [From REVLIMID] Allergy Intermediate RASH HEAD Verified 05/17/20 13:47 TO TOE Home Medications Medication Instructions Recorded Confirmed Last Taken Type amlodipine 10 mg PO DAILY 01/05/20 06/05/20 04/05/20 History atorvastatin 20 mg PO BEDTIME 01/05/20 06/05/20 04/04/20 History calcium carbonate [Antacid Ext Str 1 tab PO BID 01/05/20 06/05/20 04/05/20 Histo ry (calcium carb)] omeprazole 20 mg DAILY 01/05/20 06/05/20 04/04/20 History ferrous gluconate 236 mg PO DAILY 06/05/20 06/05/20 Unknown History oxycodone 10 mg PO Q6H 06/05/20 06/05/20 Unknown History Physical Exam Const: General: ill appearing and lethargic Nutritional Appearance: malnourished Orientation/consciousness: lethargic Neck: Yes normal visual inspection Chest: Chest palpation & inspection: normal inspection of the chest Resp: Auscultation: no rales and no rhonchi Cardio: Rate: regular rate Heart sounds: S1 normal heart sound present and S2 normal heart sound present GI: Inspection: Yes normal to inspection Skin: General skin exam: no rashes or lesions noted Neuro: Cognition (Neuro): abnormal cognition Motor exam (neuro): 5/5 motor strength present throughout Results Labs CBC and Chem 7: 06/06/20 05:39 06/06/20 05:39 Assessment and Plan (1) Hypercalcemia: Status: Acute (2) Toxic metabolic encephalopathy: Status: Acute (3) Multiple myeloma: Status: Chronic (4) Thrombocytopenia: Status: Acute (5) HTN (hypertension): Status: Acute (6) History of IBS: Status: Acute (7) GERD (gastroesophageal reflux disease): Status: Acute 69-year-old female history of multiple myeloma currently was not getting chemo since being in rehab was sent from rehab facility with hypercalcemia and lethargic, patient was found to have calcium of 13.7 Hypercalcemia secondary to multiple myeloma repeat calcium 13.7 will start IV normal saline discuss with Hematology Will give pamidronate monitor calcium level 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 Hernandez DVT prophylaxis heparin subQ patient is DNR DNI
[2020-06-05 20:00] VITALS: BP 126/74; PULSE 76; RESP 16; TEMP 36.6; O2SAT 98
[2020-06-05] MEDS: 0.9 % Sodium Chloride 1,000 ML 125 ML IVCONT (20:28)
[2020-06-05] MEDS: Heparin Sodium,Porcine 5,000 UNIT/ML VIAL 5000 UNIT SUBCUT (20:28)
[2020-06-05 21:27] LABS: COVID-19 Test Negative (Negative); IDNOW Serial# 9DD0AD1C
[2020-06-06] VITALS (8 sets, daily range): BP systolic 134–149; BP diastolic 59–79; PULSE 101–117; RESP 16–24; TEMP 35.5–37.7; O2SAT 91–96
[2020-06-06] MEDS: 0.9 % Sodium Chloride 1,000 ML 125 ML IVCONT ×3 (04:48→21:06)
[2020-06-06] MEDS: Heparin Sodium,Porcine 5,000 UNIT/ML VIAL 5000 UNIT SUBCUT ×2 (06:09→18:21)
[2020-06-06 06:15] LABS: MANUAL DIFF FLAG NO
[2020-06-06 07:04] LABS: Basophils Percent Auto 0.2 % (0-2); Eosinophils Absolute Auto 0.1 X10*3/uL (0.0-0.4); Eosinophils Percent Auto 1.6 % (0-4); Hemoglobin 8.1 g/dl (12.0-16.0); Imm Gran Abs Auto 0.06 X10*3/uL (0.00-0.03); Imm Gran Pct Auto 1.1 % (0.0-0.4); Lymphocytes Percent Auto 18.5 % (20-40); Mean Corpuscular Hemoglobin 27.9 pg (27.0-33.0); Mean Corpuscular Volume 93.1 fL (80-98); Mean Platelet Volume 12.2 fL (9.4-12.3); Monocytes Absolute Auto 0.8 X10*3/uL (0.1-1.2); Neutrophils Absolute Auto 3.6 X10*3/uL (2.0-8.3); Neutrophils Percent Auto 64.6 % (45-73); Platelet Count 209 X10*3/uL (160-400); White Blood Count 5.6 X10*3/uL (4.8-10.8)
[2020-06-06 07:12] LABS: Anion Gap 18 (12-20); Blood Urea Nitrogen 18 mg/dL (9-16); Calcium 12.1 mg/dL (8.4-10.2); Carbon Dioxide 23 mmol/L (22-29); Chloride 104 mmol/L (96-108); Estimated Glomerular Filt Rate > 60; Glucose Random 85 mg/dL (60-115); Potassium 3.7 mmol/L (3.3-5.1); Sodium 141 mmol/L (135-145)
--- NOTE | 2020-06-06 08:47 | MHC.CM.PN ---
CM met with Patient and addressed IMM, providing her with the original and a copy being placed on the chart. Patient appeared somewhat able but a little reluctant to answer questions and gave CM permission to call her Sister/HCP/Jacqui @ [phone]. Patient comes from [facility] and may return there with Hospice or [facility]; CM has initiated and will follow for dc planning. In the recent past, Patient was living with Jacqui with services from [facility], after a 3 week stay at [facility] (Not with Patient's and adult Son/ apparently has health issues himself and is disabled and their home has several stairs)). PCP is Dr. Akbar Schultz. CM will follow.
--- NOTE | 2020-06-06 11:06 | MHC.CLN ---
RE: CONSULT HT 4'4'' USED FOR NUTRITION ASSESSMENT FROM PREVIOUS ADMISSIONS PT APPEARS OBESE FOR HT NOTED POOR PO FROM NURSING FACILITY TELEMEDICINE PHYSICIAN MONITOR PO CLOSELY
--- NOTE | 2020-06-06 11:27 | MHC.CM.PN ---
CM spoke with Sister/HCP/Jacqui at [phone] as promised after ROUNDS, and returned a call to first contact//Dannie at [phone].Per Rounds discussion, Patient already appears to be clearing mentally and the goal is to treat Patient's Hypercalcemia and then have a clearer discussion with Patient and/or HCP, regarding goals of care, including decision regarding restarting chemo. Sister and appeared appreciative for info and CM has requested that MD call Sister/HCP to provide her with clinical update/prognosis. CM will follow.
--- NOTE | 2020-06-06 13:35 | P.PNIM_ITS ---
Subjective Subjective Date of Service: 06/06/20 Interval History: Patient seen and examined at bedside patient is more awake alert today Physical Exam Vital Signs: Vital Signs: Last Vital Signs Temp 96 F L 06/06/20 11:15 Pulse 101 H 06/06/20 11:15 Resp 18 06/06/20 11:15 BP 136/66 06/06/20 11:15 Pulse Ox 96 06/06/20 11:15 Const: General: tired appearing Neck: Neck: Yes normal visual inspection Chest: Chest palpation & inspection: normal inspection of the chest Resp: Auscultation: no rales and no rhonchi Cardio: Rate: regular rate Heart sounds: S1 normal heart sound present and S2 normal heart sound present GI: Inspection: Yes normal to inspection Skin: General skin exam: no rashes or lesions noted Neuro: Cognition (Neuro): abnormal cognition Motor exam (neuro): 5/5 motor strength present throughout Objective Data Current Medications Generic Name Dose Route Start Last Admin Trade Name Freq PRN Reason Stop Dose Admin Heparin Sodium (Porcine) 5,000 unit 06/05/20 19:00 06/06/20 06:09 Heparin Sodium,Porcine 5,000 Unit/Ml Vial SUBCUT 5,000 unit Q12H ROSA Administration Sodium Chloride 1,000 mls @ 125 mls/hr 06/05/20 18:34 06/06/20 12:40 Ns IVCONT 125 mls/hr .Q8H ROSA Administration Sodium Chloride 3 ml 06/06/20 00:00 06/06/20 08:13 0.9 % Sodium Chloride Flush 3 Ml Syringe IVFLUSH Not Given QSHIFT [facility] Labs CBC & Chem 7: 06/06/20 05:39 06/06/20 05:39 Assessment and Plan (1) Hypercalcemia: Status: Acute (2) Toxic metabolic encephalopathy: Status: Acute (3) Multiple myeloma: Status: Chronic (4) Thrombocytopenia: Status: Acute (5) HTN (hypertension): Status: Acute (6) History of IBS: Status: Acute (7) GERD (gastroesophageal reflux disease): Status: Acute Assessment and Plan: 69-year-old female history of multiple myeloma currently was not getting chemo since being in rehab was sent from rehab facility with hypercalcemia and lethargic, patient was found to have calcium of 13.7 Hypercalcemia secondary to multiple myeloma calcium on admission 13.7 trended down to 12 today continue IV normal saline received pamidronate monitor calcium level monitor on environmental monitoring specialist mental status nephrology consulted Toxic metabolic encephalopathy improving secondary to hypercalcemia and dehydration treat underlying hypercalcemia monitor mental status multiple myeloma metastatic advanced not getting chemo being in rehab oncology consulted DVT prophylaxis heparin subQ patient is DNR DNI
--- NOTE | 2020-06-06 15:10 | P.PNHO_ITS ---
Medical Summary - Medical Summary Date of Service: 06/06/20 Chief complaint: Fatigue Interval History Interval history: Patient seen at the bedside today. She is feeling better, reports that she feels like she has more energy. She denies any chest pain or shortness of breath. [facility] Medical History: Medical History (Last Reviewed 06/05/20 @ 18:28 by Chai Thao MD) GERD (gastroesophageal reflux disease) History of IBS HTN (hypertension) Hx of multiple myeloma Hyperlipidemia Right humeral fracture Thrombocytopenia Family History: Family History (Last Reviewed 06/05/20 @ 18:28 by Chai Thao MD) Father Bladder cancer Mother ESRD (end stage renal disease) on dialysis Surgical History: Surgical History (Last Reviewed 06/05/20 @ 18:28 by Chai Thao MD) H/O hernia repair History of esophagogastroduodenoscopy (EGD) History of left knee surgery History of right knee surgery Previous section Social History: Social History (Last Reviewed 06/05/20 @ 18:28 by Chai Thao MD) Living Situation History: Household Members: Family Housing: Alf Alcohol History: Alcohol intake: never Alcohol History Details: Alcohol intake frequency: does not drink Tobacco History: Smoking Status: Never smoker Second Hand Smoke Exposure: No Substance Use History: Use of substances other than those prescribed or required for medical reasons : No Currently Displaying Signs/Symptoms of Drug Intoxication Withdrawal: No Advance Directives: Advance Directives: Yes Advance Directives on File: Yes Advance Directives Date on File: 05/02/20 Homicidal Assessment: Do you have thoughts of harming others: None Do you have a plan to hurt others: No Plan Nutrition Assessment: Recently lost weight without trying: Unsure Eating poorly because of decreased appetite: Yes Occupation Assessmet: service: No Current occupational status: retired Smoking status: Never smoker Oncology Screenings - ECOG Performance Status ECOG Performance Status: 4 Home Medications and Allergies Current Medications: Current Medications Generic Name Dose Route Start Last Admin Trade Name Freq PRN Reason Stop Dose Admin Heparin Sodium (Porcine) 5,000 unit 06/05/20 19:00 06/06/20 06:09 Heparin Sodium,Porcine 5,000 Unit/Ml Vial SUBCUT 5,000 unit Q12H ROSA Administration Sodium Chloride 1,000 mls @ 125 mls/hr 06/05/20 18:34 06/06/20 12:40 Ns IVCONT 125 mls/hr .Q8H [facility] Administration Sodium Chloride 3 ml 06/06/20 00:00 06/06/20 08:13 0.9 % Sodium Chloride Flush 3 Ml Syringe IVFLUSH Not Given QSHIFT [facility] Home Medications Medication Instructions Recorded Confirmed Type amlodipine 10 mg PO DAILY 01/05/20 06/05/20 History atorvastatin 20 mg PO BEDTIME 01/05/20 06/05/20 History calcium carbonate [Antacid Ext Str 1 tab PO BID 01/05/20 06/05/20 History (calcium carb)] omeprazole 20 mg DAILY 01/05/20 06/05/20 History ferrous gluconate 236 mg PO DAILY 06/05/20 06/05/20 History oxycodone 10 mg PO Q6H 06/05/20 06/05/20 History Allergies Allergy/AdvReac Type Severity Reaction Status Date / Time lenalidomide [From REVLIMID] Allergy Intermediate RASH HEAD Verified 05/17/20 13:47 TO TOE Exam Vital signs: Vital Signs Temp 96 F L 06/06/20 11:15 Pulse 101 H 06/06/20 11:15 Resp 18 06/06/20 11:15 BP 136/66 06/06/20 11:15 Pulse Ox 96 06/06/20 11:15 Intake & Output 06/05/20 06/06/20 06/06/20 18:59 06:59 18:59 Intake Total 1890 / 1890 1463.333 / 1463.333 Output Total 1001 / 1001 Balance 1890 / 1890 462.333 / 462.333 Urine Output (Average ml/kg/hr) 1.58 Intake: Intake, Oral Amount 380 / 380 480 / 480 Intake, IV Amount 1510 / 1510 983.333 / 983.333 Pamidronate Disodium 90 mg In 0 510 / 510 .9 % Sodium Chloride 500 ml @ 127.5 mls/hr IV ONCE ONE Rx#: [id number] 0.9 % Sodium Chloride 1,000 ml 1000 / 1000 983.333 / 983.333 @ 125 mls/hr IVCONT .Q8H [facility] Rx #:[id number] Output: Output, Urine Amount 1000 / 1000 Output, Stool Amount 1 / 1 Other: Lunch % Eaten 100% Dinner % Eaten 100% Number of Incontinent Voids 2 Number of Unmeasured Voids 1 Stool Incontinent Stool Amount Large Stool Color Black (Tarry) Stool Consistency Watery Weight 52.6 kg Weight in Grams 02900 Weight 52.6 kg - Constitutional Present: no acute distress - Routine HEENT Exam Head: Present: normal inspection Eye: Present: EOMI, conjunctivae pale - Routine Neck Exam Absent: lymphadenopathy - Routine Respiratory Exam Present: CTAB - Routine Cardiovascular Exam Cardiovascular: Present: S1, S2 Data - Labs CBC & Chem 7: 06/06/20 05:39 06/06/20 05:39 Labs: 06/05/20 17:46 Transfer Order Routine 06/05/20 18:34 IV insert/maintain Q4HR Intake and Output Q8HR Vital Signs Q4HR 06/05/20 20:02 Pamidronate Disodium [Aredia] 90 mg 0.9 % Sodium Chloride [Ns] 500 ml IV ONCE 06/05/20 20:35 COVID-19 ID NOW (Blum) Stat 06/06/20 05:39 Basic Metabolic Panel DAILY@0600 Complete Blood Count Auto Diff DAILY@0600 Laboratory Last Values WBC 5.6 X10*3/uL (4.8-10.8) 06/06/20 05:39 RBC 2.90 X10*6/uL (4.20-5.50) L 06/06/20 05:39 Hgb 8.1 g/dl (12.0-16.0) L 06/06/20 05:39 Hct 27.0 % (37-47) L 06/06/20 05:39 MCV 93.1 fL (80-98) 06/06/20 05:39 MCH 27.9 pg (27.0-33.0) 06/06/20 05:39 MCHC 30.0 g/dl (31.0-35.0) L 06/06/20 05:39 RDW 16.0 % (11.0-16.0) 06/06/20 05:39 Plt Count 209 X10*3/uL (160-400) 06/06/20 05:39 MPV 12.2 fL (9.4-12.3) 06/06/20 05:39 Immature Gran % (Auto) 1.1 % (0.0-0.4) H 06/06/20 05:39 Neut % (Auto) 64.6 % (45-73) 06/06/20 05:39 Lymph % (Auto) 18.5 % (20-40) L 06/06/20 05:39 Darke % (Auto) 14.0 % (2-11) H 06/06/20 05:39 Eos % (Auto) 1.6 % (0-4) 06/06/20 05:39 Baso % (Auto) 0.2 % (0-2) 06/06/20 05:39 Lymph # (Auto) 1.0 X10*3/uL (1.2-4.9) L 06/06/20 05:39 Darke # (Auto) 0.8 X10*3/uL (0.1-1.2) 06/06/20 05:39 Eos # (Auto) 0.1 X10*3/uL (0.0-0.4) 06/06/20 05:39 Baso # (Auto) 0.0 X10*3/uL (0.0-0.2) 06/06/20 05:39 Abs Immat Gran (auto) 0.06 X10*3/uL (0.00-0.03) H 06/06/20 05:39 Absolute Neuts (auto) 3.6 X10*3/uL (2.0-8.3) 06/06/20 05:39 Absolute Nucleated RBC 0.000 X10*3/uL (0.0-0.012) 06/06/20 05:39 Nucleated RBC % (auto) 0.0 /100WBC (0.0-0.2) 06/06/20 05:39 Sodium 141 mmol/L (135-145) 06/06/20 05:39 Potassium 3.7 mmol/L (3.3-5.1) 06/06/20 05:39 Chloride 104 mmol/L (96-108) 06/06/20 05:39 Carbon Dioxide 23 mmol/L (22-29) 06/06/20 05:39 Anion Gap 18 (12-20) 06/06/20 05:39 BUN 18 mg/dL (9-16) H 06/06/20 05:39 Creatinine 0.84 mg/dL (0.5-1.4) 06/06/20 05:39 Estim Creat Clear Calc TNP 06/06/20 05:39 Estimated GFR > 60 06/06/20 05:39 Random Glucose 85 mg/dL (60-115) 06/06/20 05:39 Calcium 12.1 mg/dL (8.4-10.2) H D 06/06/20 05:39 COVID-19 (ABDOULAYE) Negative (Negative) 06/05/20 20:35 COVID-19 Clin Com See Note 06/05/20 20:35 Progress Note: A/P (1) Multiple myeloma Status: Chronic Assessment and plan: 1. This is a pleasant 69-year-old female with IgA/kappa multiple myeloma. Received treatment with Velcade/cyclophosphamide/Decadron for 8 cycles until November 2017. She was on Zometa 4 mg IV every 3 months. She was on maintenance velcade 1.3 milligram/meter sq once every 2 weeks from August 2018 until may 2020. Patient suffered a pathological fracture of her left femur in May 2020. Subsequently, she was diagnosed with progressive disease with extensive lytic lesions throughout her body. For her progressive disease, she was recommended daratumumab with pomalidomide and dexamethasone. Unfortunately, she was transferred to a rehab center and she was not able to come in for any treatments. Her co-pay for pomalidomide was prohibitive. She is now presenting with severe hypercalcemia related to disease progression. She received IV fluids and pamidronate after her hospitalization yesterday and she reports feeling better. This morning she told me that she would like to resume treatment for her multiple myeloma. I would appreciate help from case management about her future placement and treatments. - Time Spent With Patient Total time spent is greater than 50% in coordination of care (as documented) at patient's floor/unit and/or counseling patient: 15 - 24 minutes
[2020-06-06] MEDS: Albuterol/Iprat 2.5/0.5MG 3 ML AMPUL.NEB INHALE (16:34)
--- NOTE | 2020-06-06 17:28 | PM.CNNEP ---
History of Present Illness Reason for Consult Consult date: 06/06/20 Reason for consult: hypercalcemia Chief Complaint Chief complaint: hypercalcemia History of Present Illness Narrative: Asked to see patient to assist in evaluation and management of her hypercalcemia and alter mental status. In summary she is a 69-year-old with known multiple myelomaIn summary she is a 69-year-old white female with a known history of multiple myeloma. She recently had a bone fracture and was in rehab and developed alt mental status and was noted to have hypercalcemia with a calcium of 14 she was admitted. She was given IV fluids and one dose of palmidronate and a calcium has come down this morning to 12.1. The staff report patient is doing better conversing better and less confused this morning. She has been closely followed by hematology and has been on chemotherapy which aparently has been on hold since her hip fracture and rehab stay. Review of Systems Review of Systems Yes Unobtainable due to mental status PMFSH Past Medical History Medical History GERD (gastroesophageal reflux disease) History of IBS HTN (hypertension) Hx of multiple myeloma Hyperlipidemia Right humeral fracture Thrombocytopenia Family History Family History Father Bladder cancer Mother ESRD (end stage renal disease) on dialysis Surgical History Surgical History H/O hernia repair History of esophagogastroduodenoscopy (EGD) History of left knee surgery History of right knee surgery Previous section Social History Social History Household Members: Family Housing: Halfway Alcohol intake: never Smoking Status: Never smoker Second Hand Smoke Exposure: No Use of substances other than those prescribed or required for medical reasons: No Currently Displaying Signs/Symptoms of Drug Intoxication Withdrawal: No Advance Directives: Yes Advance Directives on File: Yes Advance Directives Date on File: 05/02/20 Do you have thoughts of harming others: None Do you have a plan to hurt others: No Plan Recently lost weight without trying: Unsure service: No Current occupational status: retired Meds Allergies Allergy/AdvReac Type Severity Reaction Status Date / Time lenalidomide [From REVLIMID] Allergy Intermediate RASH HEAD Verified 05/17/20 13:47 TO TOE Active Medications: Current Medications Generic Name Dose Route Start Last Admin Trade Name Freq PRN Reason Stop Dose Admin Albuterol/Ipratropium 3 ml 06/06/20 16:15 06/06/20 16:34 Albuterol/Iprat 2.5/0.5mg 3 Ml Ampul.Neb INHALE 3 ml RQ4H PRN Administration Wheezing Heparin Sodium (Porcine) 5,000 unit 06/05/20 19:00 06/06/20 06:09 Heparin Sodium,Porcine 5,000 Unit/Ml Vial SUBCUT 5,000 unit Q12H ROSA Administration Sodium Chloride 1,000 mls @ 125 mls/hr 06/05/20 18:34 06/06/20 17:22 Ns IVCONT Not Given .Q8H ROSA Sodium Chloride 3 ml 06/06/20 00:00 06/06/20 15:33 0.9 % Sodium Chloride Flush 3 Ml Syringe IVFLUSH Not Given QSHIFT [facility] Home Medications Medication Instructions Recorded Confirmed Last Taken Type amlodipine 10 mg PO DAILY 01/05/20 06/05/20 04/05/20 History atorvastatin 20 mg PO BEDTIME 01/05/20 06/05/20 04/04/20 History calcium carbonate [Antacid Ext Str 1 tab PO BID 01/05/20 06/05/20 04/05/20 History (calcium carb)] omeprazole 20 mg DAILY 01/05/20 06/05/20 04/04/20 History ferrous gluconate 236 mg PO DAILY 06/05/20 06/05/20 Unknown History oxycodone 10 mg PO Q6H 06/05/20 06/05/20 Unknown History Physical Exam Vital Signs: Last Vital Signs Temp 97.8 F 06/06/20 15:56 Pulse 106 H 06/06/20 16:39 Resp 18 06/06/20 15:56 BP 135/75 06/06/20 15:56 Pulse Ox 96 06/06/20 15:56 Const General: ill appearing, lethargic and tired appearing Nutritional Appearance: malnourished Orientation/consciousness: lethargic Neck Neck: Yes normal visual inspection Chest Chest palpation & inspection: normal inspection of the chest Resp Auscultation: no rales and no rhonchi Cardio Rate: regular rate Heart sounds: S1 normal heart sound present and S2 normal heart sound present GI Inspection: Yes normal to inspection Skin General skin exam: no rashes or lesions noted Neuro Cognition (Neuro): abnormal cognition Motor exam (neuro): 5/5 motor strength present throughout Results Lab Results Result Diagrams: 06/06/20 05:39 06/06/20 05:39 Lab results: Chemistry 06/06/20 05:39 Sodium 141 Potassium 3.7 Carbon Dioxide 23 BUN 18 H Creatinine 0.84 Calcium 12.1 H D Hematology 06/06/20 05:39 WBC 5.6 Hgb 8.1 L Plt Count 209 Assessment and Plan (1) Multiple myeloma: Status: Chronic 69-year-old female history of multiple myeloma currently was not getting chemo since being in rehab was sent from rehab facility with hypercalcemia and lethargic, patient was found to have calcium of 13.7 1. HyperCa: most c/w combnation of Myeloma and inactiviyt and doubt this is primary hyperpara or vit D excess syndrome Fortunately its already coming down with IVF and palmidronate should be kicking in in hte next 24 hrs to furhter help comtol the hypreCa 2. AMS: d/t hyperCa 3. Myeloma 4. renal Func preserved at this time but at risk for KI d/t Muyeloma with Cast Nephroapthy and hyperCa itseldf can cause RONA REC: cont ivf; track Ca level; check PTH and vit D levels
[2020-06-07] VITALS (7 sets, daily range): BP systolic 132–147; BP diastolic 64–83; PULSE 96–105; RESP 18–24; TEMP 36.6–37.3; O2SAT 95–100
[2020-06-07] MEDS: 0.9 % Sodium Chloride 1,000 ML 125 ML IVCONT ×3 (06:03→20:31)
[2020-06-07] MEDS: Heparin Sodium,Porcine 5,000 UNIT/ML VIAL 5000 UNIT SUBCUT ×2 (06:40→20:32)
--- NOTE | 2020-06-07 07:08 | PC.NURSE ---
spoke with dr JI R/T elevation on her forehead not painful LOOKES LIKE LUMPS dr JI CAME AND EXAMINED PT
[2020-06-07] MEDS: Omeprazole 20 MG CAPSULE.DR PO (08:37)
[2020-06-07] MEDS: Ferrous Sulfate 324 MG TABLET.DR PO (08:37)
[2020-06-07] MEDS: oxyCODONE HCl Immed Release 5 MG TABLET 10 MG PO ×3 (08:37→20:31)
[2020-06-07] MEDS: Calcium Carbonate 750 MG TAB.CHEW 375 MG PO (08:38)
[2020-06-07] MEDS: amLODIPine Besylate 10 MG TABLET PO (08:40)
[2020-06-07] MEDS: Albuterol/Iprat 2.5/0.5MG 3 ML AMPUL.NEB INHALE ×2 (08:48→13:36)
[2020-06-07 09:45] LABS: Blood Urea Nitrogen 10 mg/dL (9-16); Estimated Glomerular Filt Rate > 60; Glucose Random 94 mg/dL (60-115)
[2020-06-07 09:55] LABS: Anion Gap 16 (12-20); Calcium 10.1 mg/dL (8.4-10.2); Carbon Dioxide 26 mmol/L (22-29); Chloride 101 mmol/L (96-108); Potassium 2.8 mmol/L (3.3-5.1); Sodium 140 mmol/L (135-145)
[2020-06-07] MEDS: Potassium Chloride Packet 20 MEQ PACKET 40 MEQ PO (10:50)
--- NOTE | 2020-06-07 11:30 | P.PNIM_ITS ---
Subjective Subjective Date of Service: 06/07/20 Interval History: Patient seen and examined at bedside patient is more awake alert today patient was wheezy Physical Exam Vital Signs: Vital Signs: Last Vital Signs Temp 98 F 06/07/20 10:54 Pulse 104 H 06/07/20 10:54 Resp 20 06/07/20 10:54 BP 132/71 06/07/20 10:54 Pulse Ox 96 06/07/20 10:54 Const: General: tired appearing Nutritional Appearance: malnourished Neck: Neck: Yes normal visual inspection Chest: Chest palpation & inspection: normal inspection of the chest Resp: Auscultation: no rales and no rhonchi Cardio: Rate: regular rate Heart sounds: S1 normal heart sound present and S2 normal heart sound present GI: Inspection: Yes normal to inspection Skin: General skin exam: no rashes or lesions noted Neuro: Cognition (Neuro): abnormal cognition Motor exam (neuro): 5/5 motor strength present throughout Objective Data Current Medications Generic Name Dose Route Start Last Admin Trade Name Freq PRN Reason Stop Dose Admin Albuterol/Ipratropium 3 ml 06/06/20 16:15 06/07/20 08:48 Albuterol/Iprat 2.5/0.5mg 3 Ml Ampul.Neb INHALE 3 ml RQ4H PRN Administration Wheezing Amlodipine Besylate 10 mg 06/07/20 09:00 06/07/20 08:40 Amlodipine Besylate 10 Mg Tablet PO 10 mg DAILY ROSA Administration Protocol Atorvastatin Calcium 20 mg 06/07/20 21:00 Atorvastatin Calcium 20 Mg Tablet PO BEDTIME ROSA Calcium Carbonate 375 mg 06/07/20 09:00 06/07/20 08:38 Calcium Carbonate 750 Mg Tab.Chew PO 375 mg BID ROSA Administration Ferrous Sulfate 324 mg 06/07/20 09:00 06/07/20 08:37 Ferrous Sulfate 324 Mg Tablet.Dr PO 324 mg DAILY ROSA Administration Heparin Sodium (Porcine) 5,000 unit 06/05/20 19:00 06/07/20 06:40 Heparin Sodium,Porcine 5,000 Unit/Ml Vial SUBCUT 5,000 unit Q12H ROSA Administration Sodium Chloride 1,000 mls @ 125 mls/hr 06/05/20 18:34 06/07/20 06:03 Ns IVCONT 125 mls/hr .Q8H ROSA Administration Omeprazole 20 mg 06/07/20 09:00 06/07/20 08:37 Omeprazole 20 Mg Capsule. PO 20 mg DAILY@0630 ROSA Administration Oxycodone HCl 10 mg 06/07/20 08:10 06/07/20 08:37 Oxycodone Hcl Immed Release 5 Mg Tablet PO 10 mg Q6H ROSA Administration Potassium Chloride 10 meq 06/07/20 09:00 06/07/20 08:37 Potassium Chloride Er 10 Meq Capsule.Er PO 10 meq DAILY ROSA Administration Sodium Chloride 3 ml 06/06/20 00:00 06/07/20 07:18 0.9 % Sodium Chloride Flush 3 Ml Syringe IVFLUSH Not Given QSHIFT [facility] Labs CBC & Chem 7: 06/06/20 05:39 06/07/20 08:48 Assessment and Plan (1) Hypercalcemia: Status: Acute (2) Toxic metabolic encephalopathy: Status: Acute (3) Multiple myeloma: Status: Chronic (4) Thrombocytopenia: Status: Acute (5) HTN (hypertension): Status: Acute (6) History of IBS: Status: Acute (7) GERD (gastroesophageal reflux disease): Status: Acute Assessment and Plan: 69-year-old female history of multiple myeloma currently was not getting chemo since being in rehab was sent from rehab facility with hypercalcemia and lethargic, patient was found to have calcium of 13.7 Hypercalcemia secondary to multiple myeloma calcium trending down down from 13.7 to 10 continue IV normal saline received pamidronate monitor calcium level nephrology following noticed to have wheezing question underlying COPD nebulizer as needed bilateral lower extremity swelling likely secondary to poor nutrition hypo albuminemia BNP normal chest x-ray shows no acute abnormality nutrition supplementation Toxic metabolic encephalopathy improving secondary to hypercalcemia and dehydration monitor mental status multiple myeloma metastatic advanced not getting chemo being in rehab oncology following DVT prophylaxis heparin subQ patient is DNR DNI
--- NOTE | 2020-06-07 12:09 | P.PNNP_ITS ---
Subjective Subjective Date of Service: 06/07/20 Interval history: Patient seen and examined at bedside patient is more a groggy this am Physical Exam Vital Signs: Vital Signs: Last Vital Signs Temp 98 F 06/07/20 10:54 Pulse 104 H 06/07/20 10:54 Resp 20 06/07/20 10:54 BP 132/71 06/07/20 10:54 Pulse Ox 96 06/07/20 10:54 Const: General: ill appearing, lethargic and tired appearing Nutritional Appearance: malnourished Orientation/consciousness: lethargic Neck: Neck: Yes normal visual inspection Chest: Chest palpation & inspection: normal inspection of the chest Resp: Auscultation: no rales and no rhonchi Cardio: Rate: regular rate Heart sounds: S1 normal heart sound present and S2 normal heart sound present GI: Inspection: Yes normal to inspection Skin: General skin exam: no rashes or lesions noted Neuro: Cognition (Neuro): abnormal cognition Motor exam (neuro): 5/5 motor strength present throughout Objective Data Labs CBC & Chem 7: 06/06/20 05:39 06/07/20 08:48 Labs: Laboratory Results - last 24 hr 06/07/20 08:48 Sodium 140 Potassium 2.8 L D Chloride 101 Carbon Dioxide 26 Anion Gap 16 BUN 10 Creatinine 0.72 Estim Creat Clear Calc TNP Estimated GFR > 60 Random Glucose 94 Calcium 10.1 D Assessment & Plan Assessment and plan (1) Multiple myeloma: Status: Chronic Assessment and Plan: 69-year-old female history of multiple myeloma currently was not getting chemo since being in rehab was sent from rehab facility with hypercalcemia and lethargic, patient was found to have calcium of 13.7 1. HyperCa: decr Sca this am to 10; most c/w combnation of Myeloma and inactiviy and doubt this is primary hyperpara or vit D excess syndrome Fortunately its already coming down with IVF and palmidronate should be kicking in in hte next 24 hrs to furhter help comtol the hypreCa 2. AMS: d/t hyperCa 3. Myeloma 4. renal Func preserved at this time but at risk for KI d/t Muyeloma with Cast Nephroapthy and hyperCa itseldf can cause RONA REC: cont ivf untoil taking PO better;track Ca level; check PTH and vit D levels pending Time Spent With Patient Time: Total time spent is greater than 50% in coordination of care (as docum ented) at patient's floor/unit and/or counseling patient:
--- NOTE | 2020-06-07 12:30 | P.PNHO_ITS ---
Medical Summary - Medical Summary Date of Service: 06/07/20 Chief complaint: Shortness of breath Interval History Interval history: Offers no complaints but admits to feeling wheezy and short of breath. She is a little more sedated today. [facility] Medical History: Medical History (Last Reviewed 06/05/20 @ 18:28 by Chai Thao MD) GERD (gastroesophageal reflux disease) History of IBS HTN (hypertension) Hx of multiple myeloma Hyperlipidemia Right humeral fracture Thrombocytopenia Family History: Family History (Last Reviewed 06/05/20 @ 18:28 by Chai Thao MD) Father Bladder cancer Mother ESRD (end stage renal disease) on dialysis Surgical History: Surgical History (Last Reviewed 06/05/20 @ 18:28 by Chai Thao MD) H/O hernia repair History of esophagogastroduodenoscopy (EGD) History of left knee surgery History of right knee surgery Previous section Social History: Social History (Last Reviewed 06/05/20 @ 18:28 by Chai Thao MD) Living Situation History: Household Members: Family 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 Alcohol History: Alcohol intake: never Alcohol History Details: Alcohol intake frequency: does not drink Tobacco History: Smoking Status: Never smoker Second Hand Smoke Exposure: No Substance Use History: Use of substances other than those prescribed or required for medical reasons : No Currently Displaying Signs/Symptoms of Drug Intoxication Withdrawal: No Advance Directives: Advance Directives: Yes Advance Directives on File: Yes Advance Directives Date on File: 05/02/20 Homicidal Assessment: Do you have thoughts of harming others: None Do you have a plan to hurt others: No Plan Nutrition Assessment: Recently lost weight without trying: Unsure Eating poorly because of decreased appetite: Yes Occupation Assessmet: service: No Current occupational status: retired Smoking status: Never smoker Home Medications and Allergies Current Medications: Current Medications Generic Name Dose Route Start Last Admin Trade Name Freq PRN Reason Stop Dose Admin Albuterol/Ipratropium 3 ml 06/06/20 16:15 06/07/20 08:48 Albuterol/Iprat 2.5/0.5mg 3 Ml Ampul.Neb INHALE 3 ml RQ4H PRN Administration Wheezing Amlodipine Besylate 10 mg 06/07/20 09:00 06/07/20 08:40 Amlodipine Besylate 10 Mg Tablet PO 10 mg DAILY ROSA Administration Protocol Atorvastatin Calcium 20 mg 06/07/20 21:00 Atorvastatin Calcium 20 Mg Tablet PO BEDTIME ROSA Calcium Carbonate 375 mg 06/07/20 09:00 06/07/20 08:38 Calcium Carbonate 750 Mg Tab.Chew PO 375 mg BID ROSA Administration Ferrous Sulfate 324 mg 06/07/20 09:00 06/07/20 08:37 Ferrous Sulfate 324 Mg Tablet. PO 324 mg DAILY ROSA Administration Heparin Sodium (Porcine) 5,000 unit 06/05/20 19:00 06/07/20 06:40 Heparin Sodium,Porcine 5,000 Unit/Ml Vial SUBCUT 5,000 unit Q12H ROSA Administration Sodium Chloride 1,000 mls @ 125 mls/hr 06/05/20 18:34 06/07/20 06:03 Ns IVCONT 125 mls/hr .Q8H ROSA Administration Dexamethasone Sodium Phosphate 52 mls @ 208 mls/hr 06/07/20 12:27 20 mg/ Sodium Chloride IV 06/07/20 12:41 ONCE ONE Omeprazole 20 mg 06/07/20 09:00 06/07/20 08:37 Omeprazole 20 Mg Capsule. PO 20 mg DAILY@0630 ROSA Administration Oxycodone HCl 10 mg 06/07/20 08:10 06/07/20 08:37 Oxycodone Hcl Immed Release 5 Mg Tablet PO 10 mg Q6H ROSA Administration Potassium Chloride 10 meq 06/07/20 09:00 06/07/20 08:37 Potassium Chloride Er 10 Meq Capsule.Er PO 10 meq DAILY ROSA Administration Sodium Chloride 3 ml 06/06/20 00:00 06/07/20 07:18 0.9 % Sodium Chloride Flush 3 Ml Syringe IVFLUSH Not Given QSHIFT PENDING SALE TO [facility] Home Medications Medication Instructions Recorded Confirmed Type amlodipine 10 mg PO DAILY 01/05/20 06/05/20 History atorvastatin 20 mg PO BEDTIME 01/05/20 06/05/20 History calcium carbonate [Antacid Ext Str 1 tab PO BID 01/05/20 06/05/20 History (calcium carb)] omeprazole 20 mg DAILY 01/05/20 06/05/20 History ferrous gluconate 236 mg PO DAILY 06/05/20 06/05/20 History oxycodone 10 mg PO Q6H 06/05/20 06/05/20 History Allergies Allergy/AdvReac Type Severity Reaction Status Date / Time lenalidomide [From REVLIMID] Allergy Intermediate RASH HEAD Verified 05/17/20 13:47 TO TOE Exam Vital signs: Vital Signs Temp 98 F 06/07/20 10:54 Pulse 104 H 06/07/20 10:54 Resp 20 06/07/20 10:54 BP 132/71 06/07/20 10:54 Pulse Ox 96 06/07/20 10:54 Intake & Output 06/06/20 06/07/20 06/07/20 18:59 06:59 18:59 Intake Total 1463.333 / 3463.333 2000 / 3463.333 Output Total 1001 / 2302 1301 / 2302 Balance 462.333 / 1161.333 699 / 1161.333 Urine Output (Average ml/kg/hr) 1.58 2.06 Intake: Intake, Oral Amount 480 / 480 Intake, IV Amount 983.333 / 2983.333 2000 / 2983.333 0.9 % Sodium Chloride 1,000 ml 983.333 / 2983.333 2000 / 2983.333 @ 125 mls/hr IVCONT .Q8H PENDING SALE TO [facility] Rx #:[id number] Output: Output, Urine Amount 1000 / 2300 1300 / 2300 Output, Stool Amount 1 / 2 1 / 2 Other: Lunch % Eaten 100% Dinner % Eaten 100% Number of Bowel Movements 1 Stool Incontinent Incontinent Stool Amount Large Large Stool Color Black (Tarry) Black (Tarry) Stool Consistency Watery Watery Weight 52.6 kg - Constitutional Present: no acute distress - Routine HEENT Exam Head: Present: normal inspection - Routine Neck Exam Absent: lymphadenopathy - Routine Respiratory Exam Present: CTAB - Routine Cardiovascular Exam Cardiovascular: Present: S1, S2 Data - Labs CBC & Chem 7: 06/06/20 05:39 06/07/20 08:48 Labs: 06/05/20 17:46 Transfer Order Routine 06/05/20 18:34 IV insert/maintain Q4HR Intake and Output Q8HR Vital Signs Q4HR 06/05/20 20:02 Pamidronate Disodium [Aredia] 90 mg 0.9 % Sodium Chloride [Ns] 500 ml IV ONCE 06/05/20 20:35 COVID-19 ID NOW (Blum) Stat 06/06/20 05:39 Basic Metabolic Panel DAILY@0600 Complete Blood Count Auto Diff DAILY@0600 Laboratory Last Values WBC 5.6 X10*3/uL (4.8-10.8) 06/06/20 05:39 RBC 2.90 X10*6/uL (4.20-5.50) L 06/06/20 05:39 Hgb 8.1 g/dl (12.0-16.0) L 06/06/20 05:39 Hct 27.0 % (37-47) L 06/06/20 05:39 MCV 93.1 fL (80-98) 06/06/20 05:39 MCH 27.9 pg (27.0-33.0) 06/06/20 05:39 MCHC 30.0 g/dl (31.0-35.0) L 06/06/20 05:39 RDW 16.0 % (11.0-16.0) 06/06/20 05:39 Plt Count 209 X10*3/uL (160-400) 06/06/20 05:39 MPV 12.2 fL (9.4-12.3) 06/06/20 05:39 Immature Gran % (Auto) 1.1 % (0.0-0.4) H 06/06/20 05:39 Neut % (Auto) 64.6 % (45-73) 06/06/20 05:39 Lymph % (Auto) 18.5 % (20-40) L 06/06/20 05:39 Wood % (Auto) 14.0 % (2-11) H 06/06/20 05:39 Eos % (Auto) 1.6 % (0-4) 06/06/20 05:39 Baso % (Auto) 0.2 % (0-2) 06/06/20 05:39 Lymph # (Auto) 1.0 X10*3/uL (1.2-4.9) L 06/06/20 05:39 Wood # (Auto) 0.8 X10*3/uL (0.1-1.2) 06/06/20 05:39 Eos # (Auto) 0.1 X10*3/uL (0.0-0.4) 06/06/20 05:39 Baso # (Auto) 0.0 X10*3/uL (0.0-0.2) 06/06/20 05:39 Abs Immat Gran (auto) 0.06 X10*3/uL (0.00-0.03) H 06/06/20 05:39 Absolute Neuts (auto) 3.6 X10*3/uL (2.0-8.3) 06/06/20 05:39 Absolute Nucleated RBC 0.000 X10*3/uL (0.0-0.012) 06/06/20 05:39 Nucleated RBC % (auto) 0.0 /100WBC (0.0-0.2) 06/06/20 05:39 Sodium 141 mmol/L (135-145) 06/06/20 05:39 Potassium 3.7 mmol/L (3.3-5.1) 06/06/20 05:39 Chloride 104 mmol/L (96-108) 06/06/20 05:39 Carbon Dioxide 23 mmol/L (22-29) 06/06/20 05:39 Anion Gap 18 (12-20) 06/06/20 05:39 BUN 18 mg/dL (9-16) H 06/06/20 05:39 Creatinine 0.84 mg/dL (0.5-1.4) 06/06/20 05:39 Estim Creat Clear Calc TNP 06/06/20 05:39 Estimated GFR > 60 06/06/20 05:39 Random Glucose 85 mg/dL (60-115) 06/06/20 05:39 Calcium 12.1 mg/dL (8.4-10.2) H D 06/06/20 05:39 COVID-19 (ABDOULAYE) Negative (Negative) 06/05/20 20:35 COVID-19 Clin Com See Note 06/05/20 20:35 Progress Note: A/P (1) Multiple myeloma Status: Chronic Assessment and plan: 1. This is a pleasant 69-year-old female with IgA/kappa multiple myeloma. Received treatment with Velcade/cyclophosphamide/Decadron for 8 cycles until November 2017. She was on Zometa 4 mg IV every 3 months. She was on maintenance velcade 1.3 milligram/meter sq once every 2 weeks from August 2018 until may 2020. 2. Hypercalcemia with multiple lytic bony lesions. She has bony tumor protuberances over her skull and chest. She received IV fluids and pamidronate. Administer dexamethasone 20 mg IV today which is part of treatment for her multiple myeloma. 3. Increased wheezing and respiratory distress noted today. Chest x-ray has b een ordered and breathing treatment to be given today. 4. Prognosis is poor. Patient is DNR/DNI. - Time Spent With Patient Total time spent is greater than 50% in coordination of care (as documented) at patient's floor/unit and/or counseling patient: 15 - 24 minutes
--- NOTE | 2020-06-07 13:14 | MHC.CM.PN ---
CM DP note. Met with the Patient , her Sister, DR Mueller and Dr Thao to discuss DP. Family dynamics are interfering with placement. A secondary payment source is needed if the Pt decided on Hospice @ [facility]. Per Will Admin he has not been forthcoming with financial info for a Medicaid application. Prior admission DX Femur FX. An Ortho consult has been ordered to determine WBS. The Patient may return for further rehab. MD has been updated on DC options. Another Option May be to speak with the Spouse re Private pay vs providing documents required for the Medicaid rosales. CM will follow.
--- NOTE | 2020-06-07 14:08 | MHC.CM.PN ---
CM note A referral to Financial Services has been made. The referral was faxed. A call to Bisi Malloy to alert her was placed. The contact info for Gerardo Cortés was provided [phone]. The Pt needs a secondary payer for placement.
[2020-06-07 14:21] LABS: B Type Natriuretic Peptide 37 pg/mL (<100)
[2020-06-07] MEDS: 0.9 % Sodium Chloride Flush 3 ML SYRINGE IVFLUSH (15:43)
[2020-06-07] MEDS: Atorvastatin Calcium 20 MG TABLET PO (20:31)
[2020-06-07] MEDS: iohexoL 350 MG/ML 100 ML INFUS..BTL IV (21:22)
[2020-06-08] VITALS (9 sets, daily range): BP systolic 105–135; BP diastolic 58–73; PULSE 85–106; RESP 18–20; TEMP 36.2–37.2; O2SAT 93–96
[2020-06-08] MEDS: 0.9 % Sodium Chloride 1,000 ML 125 ML IVCONT (04:41)
[2020-06-08] MEDS: Heparin Sodium,Porcine 5,000 UNIT/ML VIAL 5000 UNIT SUBCUT ×2 (06:02→19:44)
[2020-06-08] MEDS: Omeprazole 20 MG CAPSULE.DR PO (06:02)
[2020-06-08 07:33] LABS: Anion Gap 18 (12-20); Blood Urea Nitrogen 16 mg/dL (9-16); Carbon Dioxide 21 mmol/L (22-29); Chloride 105 mmol/L (96-108); Estimated Glomerular Filt Rate > 60; Glucose Random 107 mg/dL (60-115); Potassium 3.5 mmol/L (3.3-5.1); Sodium 140 mmol/L (135-145)
[2020-06-08 07:48] LABS: Calcium 8.6 mg/dL (8.4-10.2)
[2020-06-08] MEDS: Ferrous Sulfate 324 MG TABLET.DR PO (09:00)
[2020-06-08] MEDS: oxyCODONE HCl Immed Release 5 MG TABLET 10 MG PO ×3 (09:00→20:49)
--- NOTE | 2020-06-08 09:26 | MHC.CM.PN ---
CM note After speaking with Namita ADORNO, a call was placed to protective services. A VM was left with contact info. A request for a call RE report of a possible Protective case. CM will follow.
[2020-06-08] MEDS: 0.9 % Sodium Chloride Flush 3 ML SYRINGE IVFLUSH ×2 (10:07→19:46)
[2020-06-08] MEDS: amLODIPine Besylate 10 MG TABLET PO (10:14)
--- NOTE | 2020-06-08 14:06 | P.PNIM_ITS ---
Subjective Subjective Date of Service: 06/08/20 Interval History: Patient resting in bed offers no acute complaints, denies pain, no other acute issues overnight as per patient she has mostly in chair or bed General no headache, no dizziness, no fevers, no chills CVS no chest pain, no palpitation GI no nausea no vomiting no diarrhea Lungs no shortness of breath, no respiratory distress Physical Exam Vital Signs: Vital Signs: Last Vital Signs Temp 97.6 F 06/08/20 11:11 Pulse 101 H 06/08/20 13:16 Resp 18 06/08/20 11:11 BP 126/67 06/08/20 13:16 Pulse Ox 95 06/08/20 13:16 General patient in bed, no acute distress answering questions appropriately Neck is supple, no JVD Lungs few expiratory wheeze, no respiratory distress Cardiovascular regular rate rhythm Gastrointestinal abdomen soft nontender bowel sounds are audible Extremities no pitting edema noted Neuro no confusion skin no rash Objective Data Current Medications Generic Name Dose Route Start Last Admin Trade Name Freq PRN Reason Stop Dose Admin Albuterol/Ipratropium 3 ml 06/06/20 16:15 06/07/20 13:36 Albuterol/Iprat 2.5/0.5mg 3 Ml Ampul.Neb INHALE 3 ml RQ4H PRN Administration Wheezing Amlodipine Besylate 10 mg 06/07/20 09:00 06/08/20 10:14 Amlodipine Besylate 10 Mg Tablet PO 10 mg DAILY ROSA Administration Protocol Atorvastatin Calcium 20 mg 06/07/20 21:00 06/07/20 20:31 Atorvastatin Calcium 20 Mg Tablet PO 20 mg BEDTIME ROSA Administration Calcium Carbonate 375 mg 06/07/20 09:00 06/07/20 08:38 Calcium Carbonate 750 Mg Tab.Chew PO 375 mg BID ROSA Administration Ferrous Sulfate 324 mg 06/07/20 09:00 06/08/20 09:00 Ferrous Sulfate 324 Mg Tablet. PO 324 mg DAILY ROSA Administration Heparin Sodium (Porcine) 5,000 unit 06/05/20 19:00 06/08/20 06:02 Heparin Sodium,Porcine 5,000 Unit/Ml Vial SUBCUT 5,000 unit Q12H ROSA Administration Omeprazole 20 mg 06/07/20 09:00 06/08/20 06:02 Omeprazole 20 Mg Capsule. PO 20 mg DAILY@0630 ROSA Administration Oxycodone HCl 10 mg 06/07/20 08:10 06/08/20 09:00 Oxycodone Hcl Immed Release 5 Mg Tablet PO 10 mg Q6H ROSA Administration Potassium Chloride 10 meq 06/07/20 09:00 06/08/20 09:00 Potassium Chloride Er 10 Meq Capsule.Er PO 10 meq DAILY ROSA Administration Sodium Chloride 3 ml 06/06/20 00:00 06/08/20 10:07 0.9 % Sodium Chloride Flush 3 Ml Syringe IVFLUSH 3 ml QSHIFT ROSA Administration Labs CBC & Chem 7: 06/06/20 05:39 06/09/20 05:47 Assessment and Plan (1) Toxic metabolic encephalopathy: Status: Acute (2) Hypercalcemia: Status: Acute (3) Fracture of distal end of femur with routine healing: Status: Acute (4) Multiple myeloma: Status: Chronic (5) Thrombocytopenia: Status: Acute (6) Hyperlipidemia: Status: Acute (7) HTN (hypertension): Status: Acute Assessment and Plan: 69-year-old female history of multiple myeloma currently was not getting chemo since being in rehab was sent from rehab facility with hypercalcemia and lethargic, patient was found to have calcium of 13.7 Hypercalcemia secondary to multiple myeloma, calcium normalized status post IV fluids and pamidronate Treatment for multiple myeloma as per Oncology Mild nonpitting bilateral lower extremity swelling likely secondary to a lbuminemia, BNP normal, chest x-ray shows no acute abnormality, Doppler study bilateral lower extremity showed no DVT, CTA chest showed no PE Toxic metabolic encephalopathy secondary to hypercalcemia and dehydration, patient answering questions appropriately, will discuss baseline with monitor mental status multiple myeloma has advanced metastatic disease did not receive chemotherapy since in rehab outpatient follow-up with Dr. Schuster Status post recent distal left femur fracture, residing in rehab patient evaluated by Physical therapy and it seems that patient is dependent for all functional mobility and require maximum assessment will require LTC care will d/w social service and family. DVT prophylaxis heparin subQ patient is DNR DNI
--- NOTE | 2020-06-08 15:37 | MHC.CM.PN ---
CM Note Spoke with Marisela Downing [employer] Protective services [phone] ext [phone]. The wafer line worker is Piper Mullen. She is out of office today. Marisela stated that Kristen Cortés has refused to give permission to contact Mr Cortés. Mr Cortés can not be forced to provide financial information for a Medicaid Application. T/W offered to ask Kristen's permission for Protective services to call Mr Cortés. The DC options were explained to the PT. The barriers to DC were explained. Kristen agrees to allow Protective to contact Mr Cortés. A call was placed to Marisela. A detailed VM was left, with [facility] CM contact info. Marisela informed via vm that Kristen has granted permission for Protective services to speak with her . The goal is to apply for Medicaid, once financial info obtained. ordered PT eval. PT recommends LTC. At this time we do not have the means available to apply for a 2nd payor source. LTC and Hospice require a 2nd payor. CM will continue to follow.
[2020-06-08] MEDS: Albuterol/Iprat 2.5/0.5MG 3 ML AMPUL.NEB INHALE (16:45)
[2020-06-08] MEDS: Atorvastatin Calcium 20 MG TABLET PO (20:49)
[2020-06-09] VITALS: BP 117/58; PULSE 92; RESP 20; TEMP 36.6; O2SAT 92
[2020-06-09] MEDS: 0.9 % Sodium Chloride Flush 3 ML SYRINGE IVFLUSH ×3 (00:49→16:58)
[2020-06-09 03:22] VITALS: BP 121/56; PULSE 94; RESP 20; TEMP 36.9; O2SAT 92
[2020-06-09 07:05] LABS: Anion Gap 17 (12-20); Blood Urea Nitrogen 17 mg/dL (9-16); Calcium 8.3 mg/dL (8.4-10.2); Carbon Dioxide 22 mmol/L (22-29); Chloride 105 mmol/L (96-108); Estimated Glomerular Filt Rate > 60; Glucose Random 84 mg/dL (60-115); Potassium 3.2 mmol/L (3.3-5.1); Sodium 141 mmol/L (135-145)
[2020-06-09] MEDS: Heparin Sodium,Porcine 5,000 UNIT/ML VIAL 5000 UNIT SUBCUT (07:13)
[2020-06-09] MEDS: oxyCODONE HCl Immed Release 5 MG TABLET 10 MG PO ×2 (07:14→13:22)
[2020-06-09] MEDS: amLODIPine Besylate 10 MG TABLET PO (07:39)
[2020-06-09] MEDS: Ferrous Sulfate 324 MG TABLET.DR PO (07:39)
[2020-06-09 08:00] VITALS: BP 134/71; PULSE 102; RESP 20; TEMP 36.9; O2SAT 93
[2020-06-09] MEDS: dexAMETHasone sod phosphate 4 MG/ML VIAL 6 MG IVPUSH (11:27)
[2020-06-09 12:00] VITALS: BP 134/73; PULSE 109; RESP 20; TEMP 37.1; O2SAT 93
--- NOTE | 2020-06-09 14:44 | MHC.CM.PN ---
Female 69 DX Hypercalcemia DP is contingent on Medicaid application. A call was placed to DAIJA Guzman this am. Contact info was provided. No DC today per MD rounds. CT of neck has been ordered.
[2020-06-09 15:29] VITALS: BP 125/65; PULSE 104; RESP 21; TEMP 37.3; O2SAT 94
--- NOTE | 2020-06-09 15:42 | HO.PM.IMPN ---
Subjective Subjective Date of Service: 06/09/20 Interval History: Patient noted to have audible wheeze, as per patient this is going on for some time, she denies chest pain, she denies chest tightness, no cough, denies shortness of breath or difficulty swallowing. 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 Cardiovascular regular rate rhythm. Gastrointestinal abdomen soft ,nontender, bowel sounds are audible Extremities no pitting edema noted Neuro no confusion skin no rash Objective Data Current Medications Generic Name Dose Route Start Last Admin Trade Name Freq PRN Reason Stop Dose Admin Albuterol/Ipratropium 3 ml 06/06/20 16:15 06/08/20 16:45 Albuterol/Iprat 2.5/0.5mg 3 Ml Ampul.Neb INHALE 3 ml RQ4H PRN Administration Wheezing Amlodipine Besylate 10 mg 06/07/20 09:00 06/09/20 07:39 Amlodipine Besylate 10 Mg Tablet PO 10 mg DAILY ROSA Administration Protocol Atorvastatin Calcium 20 mg 06/07/20 21:00 06/08/20 20:49 Atorvastatin Calcium 20 Mg Tablet PO 20 mg BEDTIME ROSA Administration Calcium Carbonate 375 mg 06/07/20 09:00 06/09/20 07:37 Calcium Carbonate 750 Mg Tab.Chew PO Not Given BID ROSA Dexamethasone Sodium Phosphate 6 mg 06/09/20 11:00 06/09/20 11:27 Dexamethasone Sod Phosphate 4 Mg/Ml Vial IVPUSH 6 mg BID ROSA Administration Ferrous Sulfate 324 mg 06/07/20 09:00 06/09/20 07:39 Ferrous Sulfate 324 Mg Tablet. PO 324 mg DAILY ROSA Administration Heparin Sodium (Porcine) 5,000 unit 06/05/20 19:00 06/09/20 07:13 Heparin Sodium,Porcine 5,000 Unit/Ml Vial SUBCUT 5,000 unit Q12H ROSA Administration Omeprazole 20 mg 06/07/20 09:00 06/09/20 05:17 Omeprazole 20 Mg Capsule. PO Not Given DAILY@0630 [facility] Oxycodone HCl 10 mg 06/07/20 08:10 06/09/20 13:22 Oxycodone Hcl Immed Release 5 Mg Tablet PO 10 mg Q6H ROSA Administration Potassium Chloride 10 meq 06/07/20 09:00 06/09/20 07:39 Potassium Chloride Er 10 Meq Capsule.Er PO 10 meq DAILY ROSA Administration Sodium Chloride 3 ml 06/06/20 00:00 06/09/20 07:13 0.9 % Sodium Chloride Flush 3 Ml Syringe IVFLUSH 3 ml QSHIFT ROSA Administration Labs CBC & Chem 7: 06/06/20 05:39 06/09/20 05:47 Assessment and Plan (1) Toxic metabolic encephalopathy: Status: Acute (2) Hypercalcemia: Status: Acute (3) Fracture of distal end of left femur: Status: Acute (4) Multiple myeloma: Status: Chronic (5) Hyperlipidemia: Status: Acute (6) HTN (hypertension): Status: Acute (7) Tracheal malignancy: Status: Acute Assessment and Plan: 69-year-old female history of multiple myeloma currently was not getting chemo since being in rehab was sent from rehab facility with hypercalcemia and lethargic, patient was found to have calcium of 13.7 Upper airway narrowing likely due to tracheal infiltration as seen on CT neck obtained today since patient noted to have audible wheeze, therefore started IV dexamethasone and discussed with Dr. Schuster she will discuss findings with patient and Oncology at [facility], CT neck also showed abnormal hypoattenuation visualized within the right frontal white matter raising the possibility of intracranial disease, patient also has multiple lytic lesions. Hypercalcemia secondary to multiple myeloma, calcium normalized status post IV fluids and pamidronate,, continue current calcium replacement, Treatment for multiple myeloma as per Oncology Mild nonpitting bilateral lower extremity swelling likely secondary to albuminemia, BNP normal, chest x-ray shows no acute abnormality, Doppler study bilateral lower extremity showed no DVT, CTA chest showed no PE added protein shakes Toxic metabolic encephalopathy secondary to hypercalcemia and dehydration, resolved . multiple myeloma has advanced metastatic disease did not receive chemotherapy since in rehab being followed by Dr. Schuster Status post recent distal left femur fracture, residing in rehab patient evaluated by Physical therapy and it seems that patient is dependent for all functional mobility and require maximum assessment will require LTC care social service arranging for safe discharge. Hypertension bp stable cont amlodipine. Hyperlipidemia continue statin Hypokalemia will replace and follow. DVT prophylaxis heparin subQ patient is DNR DNI
--- NOTE | 2020-06-09 16:56 | P.DS_ITS ---
DS: Providers Provider Date of Service: 06/09/20 Date of admission: 06/05/20 18:08 Primary care physician: Unknown Physician Consults: 06/06/20 10:28 Consult to Nephrology Routine Consulting Provider: Js Rogers Reason for consultation: hypercalcemia DS: Diagnosis Discharge Diagnosis (1) Toxic metabolic encephalopathy: Status: Acute (2) Hypercalcemia: Status: Acute (3) Fracture of distal end of left femur: Status: Acute (4) Multiple myeloma: Status: Chronic (5) Hyperlipidemia: Status: Acute (6) HTN (hypertension): Status: Acute (7) Tracheal malignancy: Status: Acute DS: Medications Discharge Medications Home Medications: Home Medications Medication Instructions Recorded Confirmed amlodipine 10 mg PO DAILY 01/05/20 06/05/20 atorvastatin 20 mg PO BEDTIME 01/05/20 06/05/20 calcium carbonate [Antacid Ext Str 1 tab PO BID 01/05/20 06/05/20 (calcium carb)] omeprazole 20 mg DAILY 01/05/20 06/05/20 ferrous gluconate 236 mg PO DAILY 06/05/20 06/05/20 oxycodone 10 mg PO Q6H 06/05/20 06/05/20 Previous Rx's Medication Instructions Recorded potassium chloride 10 meq PO DAILY #30 tab 02/02/20 ipratropium-albuterol 3 ml INHALATION RQ4H PRN #3 ml 06/09/20 DS: Summary Hospital Course Hospital Course: History of presenting illness Date of Service: 06/05/20 Chief Complaint: lethargy weakness 69-year-old female with history of multiple myeloma presented with weakness lethargic found to have calcium of 14 at [facility] , patient was admitted in March 2020 with hip fracture and was discharged to short-term rehab, patient was not receiving treatment for multiple myeloma while at rehab, and was noted to be lethargic lethargic, labs at facility shows hypercalcemia with calcium of 14, patient was seen in [facility]ology[facility] repeat labs shows calcium of 13, admission was requested for IV hydration and pamidronate, patient was seen and examined at bedside patient is unable to provide detail history due to lethargy and confusion but able to tell her name, patient reported weakness Past medical history GERD (gastroesophageal reflux disease) History of IBS HTN (hypertension) Hx of multiple myeloma Hyperlipidemia Right humeral fracture Thrombocytopenia This is a pleasant 69-year-old female with IgA/kappa multiple myeloma has received treatment with Velcade/cyclophosphamide/Decadron for 8 cycles until November 2017. She was on Zometa 4 mg IV every 3 months and was on on maintenance velcade 1.3 milligram/meter sq once every 2 weeks from August 2018 until may 2020 and since being admitted to rehab in May has not receive chemotherapy. Hypercalcemia with multiple lytic bony lesions,pt. has bony tumor protuberances over her skull and chest, patient received treatment with IV fluids, IV dexamethasone and pamidronate, her calcium level has normalized. 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 Schuster she discussed findings with Oncologist Dr Payton at [facility], and she has accepted to take care of patient with high-dose chemotherapy and dexamethasone therefore patient being discharged to [facility] CT neck also showed abnormal hypoattenuation within the right frontal white matter raising the possibility of intracranial disease, patient also noted to have multiple lytic lesions, a dedicated brain MRI is recommended for further evaluation. Status post recent distal left femur fracture, residing in rehab patient evaluated by Physical therapy and it seems that patient is dependent for all functional mobility and require maximum assessment Hypertension bp stable cont amlodipine. Hyperlipidemia continue statin Hypokalemia extra dose of potassium given need close follow-up on electrolytes, patient chronically on 10 mEq of potassium. Mild nonpitting bilateral lower extremity swelling likely secondary to albuminemia, anemia, BNP normal, chest x-ray shows no acute abnormality, Doppler study bilateral lower extremity showed no DVT, CTA, chest showed no PE continue protein shakes. Time Spent with Patient Time attestation: Total time spent providing and/or coordinating discharge services: Discharge coordination time: Greater than 30 minutes Physical Exam Vital Signs: Vital Signs: Last Vital Signs Temp 99.2 F 06/09/20 15:29 Pulse 104 H 06/09/20 15:29 Resp 21 H 06/09/20 15:29 BP 125/65 06/09/20 15:29 Pulse Ox 94 06/09/20 15:29 General patient in bed, audible wheeze, no acute distress Oral mucosa no tongue swelling Neck is supple, no JVD Lungs bilateral upper airway wheezing, no respiratory distress. Cardiovascular regular rate rhythm. Gastrointestinal abdomen soft ,nontender, bowel sounds are audible Extremities no pitting edema noted Neuro no confusion skin no rash DS: Data Data Completed and Pending Completed studies during hospitalization [Text1]: Procedures Reposition Left Lower Femur with Internal Fixation Device, Percutaneous Approach (04/05/20) Labs on day of discharge: Laboratory Results - last 24 hr 06/09/20 05:47 Sodium 141 Potassium 3.2 L Chloride 105 Carbon Dioxide 22 Anion Gap 17 BUN 17 H Creatinine 0.73 Estim Creat Clear Calc TNP Estimated GFR > 60 Random Glucose 84 Calcium 8.3 L Discharge Plan Discharge Patient Disposition: [facility] Referrals: Physician,Unknown [Primary Care Provider] - Discharge Medications: New ipratropium-albuterol 0.5 mg-3 mg(2.5 mg base)/3 mL Solution For Nebulization 3 ml inhalation RQ4H PRN (Reason: Wheezing) Qty: 3 RF: 0 Continued atorvastatin 20 mg tablet 20 mg PO BEDTIME RF: 0 calcium carbonate [Antacid Ext Str (calcium carb)] 300 mg (750 mg) tablet,chewable 1 tab PO BID RF: 0 amlodipine 10 mg tablet 10 mg PO DAILY RF: 0 omeprazole 20 mg capsule,delayed release(DR/EC) 20 mg DAILY RF: 0 potassium chloride 10 mEq tablet extended release 10 meq PO DAILY Qty: 30 RF: 3 ferrous gluconate 236 mg (27 mg iron) tablet 236 mg PO DAILY RF: 0 oxycodone 5 mg tablet 10 mg PO Q6H RF: 0 Discontinued oxycodone 10 mg tablet 10 mg PO Q4H PRN (Reason: pain) Qty: 10 RF: 0 Discharge Orders: Discharge Order (Routine); Ordered 06/09/20 Ordered By: Donald Zeng Diet: low fat, low cholesterol Activity on Discharge: As tolerated Stand Alone Forms: Patient Portal Discharge page Care Plan Goals: Chemotherapy for multiple myeloma/high-dose steroids Health Concerns: Multiple myeloma/hypercalcemia/metabolic encephalopathy/upper airway narrowing close follow-up on electrolytes /calcium Plan of Treatment: Treatment as per Oncology/ Follow-up with primary care physician upon discharge
[2020-06-09] MEDS: diphenhydrAMINE HCL 50 MG/ML VIAL 25 MG IVPUSH (18:33)
== END 2020-06-09 19:15 | disposition short-term general hospital (02) | DRG 640 ==
PROVIDERS: Admitting Provider Internal Medicine; PCP Internal Medicine; Visit Provider Hospitalist
DX: E86.0 Dehydration (principal); G92 Toxic encephalopathy; C90.00 Multiple myeloma not having achieved remission; C79.51 Secondary malignant neoplasm of bone; C78.39 Secondary malignant neoplasm of other respiratory organs; I10 Essential (primary) hypertension; E83.52 Hypercalcemia; E87.6 Hypokalemia; K58.9 Irritable bowel syndrome, unspecified; K21.9 Gastro-esophageal reflux disease without esophagitis; E78.5 Hyperlipidemia, unspecified; Z20.822 Contact with and (suspected) exposure to COVID-19; Z79.891 Long term (current) use of opiate analgesic; Z79.899 Other long term (current) drug therapy; Z66 Do not resuscitate
CPT/HCPCS: 36415; 70490; 71045; 71275; 80048; 83880; 85025; 87635; 92610; 93970; 94640; 97162; 99213; J1100; J1200; J2430; Q9967

== ENCOUNTER → 2023-11-26 16:01 | Outpatient (RCR) | payer MEDICARE, SELFPAY ==
[2020-01-05 10:07] VITALS: BP 143/68; PULSE 89; RESP 18; TEMP 36.4; O2SAT 97; BMI 33.5
[2020-01-05] MEDS: Heparin Sodium,Porcine Flush 500 UNIT/5 ML SYRINGE IVFLUSH (10:35)
[2020-01-05 11:03] LABS: MANUAL DIFF FLAG NO
[2020-01-05 11:05] LABS: Basophils Percent Auto 0.5 % (0-2); Eosinophils Absolute Auto 0.1 X10*3/uL (0.0-0.4); Hematocrit 33.5 % (37-47); Hemoglobin 10.6 g/dl (12.0-16.0); Imm Gran Abs Auto 0.01 X10*3/uL (0.00-0.03); Imm Gran Pct Auto 0.2 % (0.0-0.4); Lymphocytes Absolute Auto 1.2 X10*3/uL (1.2-4.9); Lymphocytes Percent Auto 20.6 % (20-40); Mean Corpuscular HGB Conc 31.6 g/dl (31.0-35.0); Mean Corpuscular Hemoglobin 29.6 pg (27.0-33.0); Mean Corpuscular Volume 93.6 fL (80-98); Mean Platelet Volume 10.8 fL (9.4-12.3); Monocytes Absolute Auto 0.4 X10*3/uL (0.1-1.2); Monocytes Percent Auto 6.4 % (2-11); Neutrophils Absolute Auto 4.2 X10*3/uL (2.0-8.3); Neutrophils Percent Auto 70.3 % (45-73); Platelet Count 214 X10*3/uL (160-400); Red Blood Count 3.58 X10*6/uL (4.20-5.50); White Blood Count 5.9 X10*3/uL (4.8-10.8)
[2020-01-05 12:05] LABS: Alanine Aminotransferase 9 U/L (0-31); Albumin Level 4.4 g/dL (3.5-5.0); Alkaline Phosphatase 93 U/L (39-117); Anion Gap 14 (12-20); Aspartate Amino Transferase 16 U/L (5-31); Bilirubin Total 0.3 mg/dL (0.0-1.0); Blood Urea Nitrogen 12 mg/dL (9-16); Calcium 8.9 mg/dL (8.4-10.2); Carbon Dioxide 22 mmol/L (22-29); Chloride 107 mmol/L (96-108); Creatinine Clr Calc Pharmacy 36.1; Estimated Glomerular Filt Rate > 60; Glucose Random 107 mg/dL (60-115); Potassium 3.5 mmol/l (3.3-5.1); Sodium 139 mmol/L (135-145); Total Protein 6.8 g/dL (6.5-8.0)
--- NOTE | 2020-01-05 12:39 | MHC.HEMONC ---
pt labs reviewed and WNL. She continues to do well with Velcade.
--- NOTE | 2020-01-05 13:31 | MHC.HEMONCSW ---
PT CONTINUES VELCADE TREATMENT. REMAINS INDEPENDENT, COPING WELL. DENIES STRESSORS. TODAY IS HER 41 [birth year]ED[birth year]ING ANNIVERSARY. SUPPORTIVE COUNSELING PROVIDED. HEALTH CARE PROXY WILL BE SCANNED INTO THIS NEW SYSTEM.
[2020-01-19 09:56] VITALS: BP 138/66; PULSE 89; RESP 18; TEMP 37.1; O2SAT 98
[2020-01-19 09:59] VITALS: BMI 33.3
[2020-01-19 10:44] LABS: MANUAL DIFF FLAG NO
[2020-01-19 10:47] LABS: Basophils Percent Auto 0.3 % (0-2); Eosinophils Absolute Auto 0.1 X10*3/uL (0.0-0.4); Eosinophils Percent Auto 1.3 % (0-4); Hematocrit 35.2 % (37-47); Hemoglobin 11.2 g/dl (12.0-16.0); Imm Gran Abs Auto 0.02 X10*3/uL (0.00-0.03); Imm Gran Pct Auto 0.3 % (0.0-0.4); Lymphocytes Absolute Auto 1.4 X10*3/uL (1.2-4.9); Mean Corpuscular HGB Conc 31.8 g/dl (31.0-35.0); Mean Corpuscular Hemoglobin 29.6 pg (27.0-33.0); Mean Corpuscular Volume 93.1 fL (80-98); Monocytes Absolute Auto 0.4 X10*3/uL (0.1-1.2); Monocytes Percent Auto 6.1 % (2-11); Neutrophils Absolute Auto 4.9 X10*3/uL (2.0-8.3); Platelet Count 166 X10*3/uL (160-400); Red Blood Count 3.78 X10*6/uL (4.20-5.50); White Blood Count 6.8 X10*3/uL (4.8-10.8)
[2020-01-19 11:28] LABS: Alanine Aminotransferase 8 U/L (0-31); Albumin Level 4.2 g/dL (3.5-5.0); Alkaline Phosphatase 86 U/L (39-117); Anion Gap 17 (12-20); Aspartate Amino Transferase 14 U/L (5-31); Bilirubin Total 0.3 mg/dL (0.0-1.0); Blood Urea Nitrogen 16 mg/dL (9-16); Calcium 8.6 mg/dL (8.4-10.2); Carbon Dioxide 17 mmol/L (22-29); Chloride 108 mmol/L (96-108); Creatinine Clr Calc Pharmacy 39.9; Estimated Glomerular Filt Rate > 60; Glucose Random 112 mg/dL (60-115); Potassium 3.8 mmol/l (3.3-5.1); Sodium 138 mmol/L (135-145); Total Protein 6.5 g/dL (6.5-8.0)
[2020-01-19] MEDS: Heparin Sodium,Porcine Flush 500 UNIT/5 ML SYRINGE IVFLUSH (11:51)
[2020-02-02 09:35] VITALS: BMI 33.0
[2020-02-02 09:36] VITALS: BP 118/76; PULSE 103; RESP 16; TEMP 37.1; O2SAT 98
[2020-02-02 10:23] LABS: MANUAL DIFF FLAG NO
[2020-02-02 10:35] LABS: Basophils Percent Auto 0.5 % (0-2); Eosinophils Absolute Auto 0.1 X10*3/uL (0.0-0.4); Eosinophils Percent Auto 1.2 % (0-4); Hematocrit 35.7 % (37-47); Hemoglobin 11.5 g/dl (12.0-16.0); Imm Gran Abs Auto 0.02 X10*3/uL (0.00-0.03); Imm Gran Pct Auto 0.3 % (0.0-0.4); Lymphocytes Absolute Auto 1.3 X10*3/uL (1.2-4.9); Lymphocytes Percent Auto 22.2 % (20-40); Mean Corpuscular HGB Conc 32.2 g/dl (31.0-35.0); Mean Corpuscular Hemoglobin 29.6 pg (27.0-33.0); Mean Corpuscular Volume 91.8 fL (80-98); Mean Platelet Volume 11.7 fL (9.4-12.3); Monocytes Absolute Auto 0.6 X10*3/uL (0.1-1.2); Monocytes Percent Auto 9.2 % (2-11); Neutrophils Percent Auto 66.6 % (45-73); Platelet Count 180 X10*3/uL (160-400); Red Blood Count 3.89 X10*6/uL (4.20-5.50); Red Cell Distribution Width 13.6 % (11.0-16.0)
[2020-02-02 11:03] LABS: Alanine Aminotransferase 8 U/L (0-31); Albumin Level 4.5 g/dL (3.5-5.0); Alkaline Phosphatase 84 U/L (39-117); Anion Gap 15 (12-20); Aspartate Amino Transferase 14 U/L (5-31); Bilirubin Total 0.4 mg/dL (0.0-1.0); Blood Urea Nitrogen 14 mg/dL (9-16); Calcium 8.8 mg/dL (8.4-10.2); Carbon Dioxide 23 mmol/L (22-29); Chloride 106 mmol/L (96-108); Creatinine Clr Calc Pharmacy 40.2; Estimated Glomerular Filt Rate > 60; Glucose Random 91 mg/dL (60-115); Potassium 3.6 mmol/l (3.3-5.1); Sodium 140 mmol/L (135-145); Total Protein 6.9 g/dL (6.5-8.0)
[2020-02-02] MEDS: Heparin Sodium,Porcine Flush 500 UNIT/5 ML SYRINGE IVFLUSH (11:45)
[2020-02-16 09:33] VITALS: BMI 32.8
[2020-02-16 09:34] VITALS: BP 136/65; PULSE 82; RESP 18; TEMP 37.2; O2SAT 98
[2020-02-16] MEDS: Alteplase Cath Clear 2 MG VIAL INTRACATH (11:18)
[2020-02-16 11:48] LABS: MANUAL DIFF FLAG NO
[2020-02-16 11:53] LABS: Basophils Percent Auto 0.2 % (0-2); Eosinophils Absolute Auto 0.1 X10*3/uL (0.0-0.4); Hematocrit 35.4 % (37-47); Hemoglobin 11.2 g/dl (12.0-16.0); Imm Gran Abs Auto 0.01 X10*3/uL (0.00-0.03); Imm Gran Pct Auto 0.2 % (0.0-0.4); Lymphocytes Absolute Auto 1.2 X10*3/uL (1.2-4.9); Lymphocytes Percent Auto 19.8 % (20-40); Mean Corpuscular HGB Conc 31.6 g/dl (31.0-35.0); Mean Corpuscular Hemoglobin 29.5 pg (27.0-33.0); Mean Corpuscular Volume 93.2 fL (80-98); Mean Platelet Volume 11.2 fL (9.4-12.3); Monocytes Absolute Auto 0.4 X10*3/uL (0.1-1.2); Neutrophils Absolute Auto 4.5 X10*3/uL (2.0-8.3); Neutrophils Percent Auto 72.8 % (45-73); Platelet Count 176 X10*3/uL (160-400); Red Cell Distribution Width 13.5 % (11.0-16.0); White Blood Count 6.2 X10*3/uL (4.8-10.8)
[2020-02-16 12:14] LABS: Alanine Aminotransferase 10 U/L (0-31); Albumin Level 4.3 g/dL (3.5-5.0); Alkaline Phosphatase 77 U/L (39-117); Anion Gap 10 (12-20); Aspartate Amino Transferase 16 U/L (5-31); Bilirubin Total 0.3 mg/dL (0.0-1.0); Blood Urea Nitrogen 17 mg/dL (9-16); Calcium 9.3 mg/dL (8.4-10.2); Carbon Dioxide 28 mmol/L (22-29); Chloride 104 mmol/L (96-108); Creatinine Clr Calc Pharmacy 34.6; Estimated Glomerular Filt Rate 58; Glucose Random 80 mg/dL (60-115); Potassium 3.8 mmol/l (3.3-5.1); Sodium 138 mmol/L (135-145); Total Protein 6.9 g/dL (6.5-8.0)
[2020-02-16] MEDS: Heparin Sodium,Porcine Flush 500 UNIT/5 ML SYRINGE IVFLUSH (12:19)
--- NOTE | 2020-02-16 16:48 | MHC.HEMONC ---
Pt here for velcade injection. Attempted to draw labs from port. Port accessed, fllushed well, but unable to get blood return. Attempted to access again, without blood return. Cathflo ordered and instilled. Was able to get blood return after 40 minutes. Labs were drawn by venous draw, reviewed. Injection given and tolerated well.
[2020-03-01 09:25] LABS: MANUAL DIFF FLAG NO
[2020-03-01 09:41] LABS: Basophils Percent Auto 0.5 % (0-2); Eosinophils Absolute Auto 0.1 X10*3/uL (0.0-0.4); Eosinophils Percent Auto 1.6 % (0-4); Hematocrit 36.1 % (37-47); Hemoglobin 11.6 g/dl (12.0-16.0); Imm Gran Abs Auto 0.01 X10*3/uL (0.00-0.03); Imm Gran Pct Auto 0.2 % (0.0-0.4); Lymphocytes Absolute Auto 1.4 X10*3/uL (1.2-4.9); Lymphocytes Percent Auto 24.8 % (20-40); Mean Corpuscular HGB Conc 32.1 g/dl (31.0-35.0); Mean Corpuscular Hemoglobin 29.1 pg (27.0-33.0); Mean Corpuscular Volume 90.7 fL (80-98); Mean Platelet Volume 10.7 fL (9.4-12.3); Monocytes Absolute Auto 0.5 X10*3/uL (0.1-1.2); Monocytes Percent Auto 8.9 % (2-11); Neutrophils Absolute Auto 3.5 X10*3/uL (2.0-8.3); Platelet Count 215 X10*3/uL (160-400); Red Blood Count 3.98 X10*6/uL (4.20-5.50); Red Cell Distribution Width 13.5 % (11.0-16.0); White Blood Count 5.5 X10*3/uL (4.8-10.8)
[2020-03-01 09:53] VITALS: BP 139/63; PULSE 83; RESP 18; TEMP 37.2; O2SAT 97
[2020-03-01 09:54] VITALS: BMI 33.1
[2020-03-01 09:58] LABS: Alanine Aminotransferase 13 U/L (0-31); Albumin Level 4.5 g/dL (3.5-5.0); Alkaline Phosphatase 89 U/L (39-117); Anion Gap 16 (12-20); Aspartate Amino Transferase 17 U/L (5-31); Bilirubin Total 0.5 mg/dL (0.0-1.0); Blood Urea Nitrogen 16 mg/dL (9-16); Calcium 9.2 mg/dL (8.4-10.2); Carbon Dioxide 21 mmol/L (22-29); Chloride 107 mmol/L (96-108); Creatinine Clr Calc Pharmacy 41.7; Estimated Glomerular Filt Rate > 60; Glucose Random 91 mg/dL (60-115); Potassium 3.5 mmol/l (3.3-5.1); Sodium 140 mmol/L (135-145); Total Protein 7.1 g/dL (6.5-8.0)
--- NOTE | 2020-03-01 14:03 | MHC.HEMONCSW ---
PT HERE FOR TREATMENT, REPORTS DOING WELL. DENIES STRESS OR C/O AT THIS TIME. SHE IS AWARE OF MY AVAILABILITY.
[2020-03-15 10:15] VITALS: BP 143/66; PULSE 78; TEMP 36.4; O2SAT 98; BMI 33.6
[2020-03-15 11:40] LABS: MANUAL DIFF FLAG NO
[2020-03-15 11:42] LABS: Basophils Percent Auto 0.2 % (0-2); Eosinophils Absolute Auto 0.1 X10*3/uL (0.0-0.4); Eosinophils Percent Auto 1.1 % (0-4); Hemoglobin 10.2 g/dl (12.0-16.0); Imm Gran Abs Auto 0.02 X10*3/uL (0.00-0.03); Imm Gran Pct Auto 0.4 % (0.0-0.4); Lymphocytes Absolute Auto 1.1 X10*3/uL (1.2-4.9); Lymphocytes Percent Auto 19.7 % (20-40); Mean Corpuscular HGB Conc 31.9 g/dl (31.0-35.0); Mean Corpuscular Hemoglobin 29.5 pg (27.0-33.0); Mean Corpuscular Volume 92.5 fL (80-98); Mean Platelet Volume 11.6 fL (9.4-12.3); Monocytes Absolute Auto 0.4 X10*3/uL (0.1-1.2); Monocytes Percent Auto 7.5 % (2-11); Neutrophils Absolute Auto 3.8 X10*3/uL (2.0-8.3); Neutrophils Percent Auto 71.1 % (45-73); Platelet Count 188 X10*3/uL (160-400); Red Blood Count 3.46 X10*6/uL (4.20-5.50); Red Cell Distribution Width 13.9 % (11.0-16.0); White Blood Count 5.3 X10*3/uL (4.8-10.8)
--- NOTE | 2020-03-15 11:53 | P.PNHO_ITS ---
Medical Summary - Medical Summary Date of Service: 03/15/20 Chief complaint: Follow-up and scheduled treatment Medical Summary: DIAGNOSIS: IGA MULTIPLE MYELOMA. Admitted for acute renal failure and hypercalcemia, 07/04/17. Her hemoglobin was 8.5, creatinine 2.07, calcium 15.6, total protein 10.8, albumin 2.8. Serum immunofixation showed elevated IgA of 5293, suppressed IgG and IgM levels, IgA kappa monoclonal band. Urine total protein was elevated at 48 mg per DL (<12). Beta-2 microglobulin 10.2 mg/L. elevated kappa/lambda ratio of 18.96. 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 Flow cytometry showed CD38 positive cells that coexpressed CD56, CD23 (dim) both surface and cytoplasmic kappa light chain, negative for CD19 and CD20. 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 Cytogenetics 43 X, -X rae (9)t (1:9), -13q, -14/ 46XX. karyotype showed abnormal hypodiploid karyotype including loss of chromosome 13 and 14 as well as gain of 1 q. which is compatible with plasma cell neoplasm. Gain of 1 q. has unfavorable prognosis. 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 Bone marrow FISH analysis revealed 42% positive for IGH-FGFR3, t (4;14), which gives her a high risk prognostic category. Skeletal survey showed multiple osteolytic lesions in the skull and axial skeleton. No pathological factors. CURRENT THERAPY: 1. She has been given pamidronate on July 05 for hypercalcemia. 2. Started received treatment with Velcade/cyclophosphamide/Decadron for 8 cycles until November 2017. 3. Denosumab for bone lesions from 08/18/17. Repeat bone marrow biopsy performed 12/26/17 shows normocytic bone marrow with active trilineage hematopoiesis and less than 1% plasma cells. Findings consistent with response to chemotherapy and bone marrow recovery. Flow cytometry shows no clonal plasma cells. PET scan performed March 2018 showed mild FDG activity in the right elbow which is nonspecific, no lytic lesion in the right forearm or abnormal FDG activity. No additional abnormalities strongly suspicious for metastatic or other malignant lesions. Received maintenance Revlimid 10 mg once a day from December 2017 to August 06, 2018, stopped in July because of because of diffuse body rash. Started Velcade maintenance every 2 weeks. Review of Systems - Constitutional Reports no additional constitutional complaints - Cardiovascular Denies chest pain, Denies lightheadedness - Respiratory Denies cough, Denies dyspnea on exertion - Gastrointestinal Denies abdominal pain, Reports bright, red blood in stools, Denies change in stools, Denies heartburn PMFSH Medical History: Medical History (Last Updated 01/05/20 @ 16:19 by Arlene Flores, RN) GERD (gastroesophageal reflux disease) History of IBS HTN (hypertension) Hyperlipidemia Right humeral fracture Thrombocytopenia Surgical History: Surgical History (Last Updated 01/05/20 @ 16:20 by Arlene Flores RN) H/O hernia repair Previous section Smoking status: Never smoker Oncology Screenings - ECOG Performance Status ECOG Performance Status: 1 Home Medications and Allergies Current Medications: Current Medications Generic Name Dose Route Start Last Admin Trade Name Freq PRN Reason Stop Dose Admin Heparin Sodium (Porcine) 500 unit 03/15/20 00:00 Heparin Sodium,Porcine Flush 500 Unit/5 Ml Syringe IVFLUSH 03/15/20 23:59 ONCE ROSA Ondansetron HCl 8 mg 03/15/20 00:00 Ondansetron Odt 8 Mg Tab.Rapdis TRANSLINGU 03/15/20 23:59 ONCE ROSA Home Medications Medication Instructions Recorded Confirmed Type amlodipine 10 mg PO DAILY 01/05/20 01/05/20 History atorvastatin 20 mg PO DAILY 01/05/20 01/05/20 History calcium carbonate [Antacid Ext Str 1 tab PO BID 01/05/20 01/05/20 History (calcium carb)] docusate sodium [DOK] 100 mg PO DAILY 01/05/20 01/05/20 History omeprazole 20 mg DAILY 01/05/20 01/05/20 History Allergies Allergy/AdvReac Type Severity Reaction Status Date / Time lenalidomide [From REVLIMID] Allergy Intermediate RASH HEAD Verified 01/05/20 10:37 TO TOE Exam Vital signs: Vital Signs Temp 98.9 F 03/01/20 09:53 Pulse 83 03/01/20 09:53 Resp 18 03/01/20 09:53 BP 139/63 03/01/20 09:53 Pulse Ox 97 03/01/20 09:53 Weight 57.8 kg Body Mass Index 33.1 - Constitutional Present: no acute distress - Routine HEENT Exam Head: Present: normal inspection Eye: Present: EOMI, PERRL ENT: Present: normal oropharynx - Routine Neck Exam Present: full ROM. Absent: lymphadenopathy - Routine Respiratory Exam Present: CTAB - Routine Cardiovascular Exam Cardiovascular: Present: RRR, S1, S2 - Routine Abdominal Exam Present: normal bowel sounds. Absent: organomegaly - Routine Extremities Exam Absent: pedal edema Data - Labs CBC & Chem 7: 03/15/20 10:00 03/01/20 09:22 Labs: 01/05/20 Complete Blood Count Auto Diff Stat Comprehensive Met. Panel Stat 01/05/20 00:00 Bortezomib for SUBCUT use [Velcade for SUBCUT use] 1.9 mg 0.9 % Sodium Chloride [Ns] 0 ml SUBCUT ONCE Heparin Sodium,Porcine Flush 500 unit IVFLUSH ONCE ondansetron ODT [Zofran ODT] 8 mg TRANSLINGU ONCE 01/19/20 00:00 Bortezomib for SUBCUT use [Velcade for SUBCUT use] 1.9 mg 0.9 % Sodium Chloride [Ns] 0 ml SUBCUT ONCE Heparin Sodium,Porcine Flush 500 unit IVFLUSH ONCE ondansetron ODT [Zofran ODT] 8 mg TRANSLINGU ONCE 01/19/20 10:00 Complete Blood Count Auto Diff Routine Comprehensive Met. Panel Routine 02/02/20 00:00 Bortezomib for SUBCUT use [Velcade for SUBCUT use] 1.9 mg 0.9 % Sodium Chloride [Ns] 0 ml SUBCUT ONCE Heparin Sodium,Porcine Flush 500 unit IVFLUSH ONCE ondansetron ODT [Zofran ODT] 8 mg TRANSLINGU ONCE 02/02/20 10:13 Complete Blood Count Auto Diff Routine Comprehensive Met. Panel Routine 02/02/20 11:27 Zoledronic Acid [Zometa] 3.3 mg 0.9 % Sodium Chloride [Ns] 100 ml IV ONCE 02/16/20 00:00 Bortezomib for SUBCUT use [Velcade for SUBCUT use] 1.9 mg 0.9 % Sodium Chloride [Ns] 0 ml SUBCUT ONCE Heparin Sodium,Porcine Flush 500 unit IVFLUSH ONCE ondansetron ODT [Zofran ODT] 8 mg TRANSLINGU ONCE 02/16/20 11:00 Alteplase Cath Clear [Cathflo Activase] 2 mg INTRACATH ONCE ONE 02/16/20 11:40 Complete Blood Count Auto Diff Routine Comprehensive Met. Panel Routine 03/01/20 00:00 Bortezomib for SUBCUT use [Velcade for SUBCUT use] 1.9 mg 0.9 % Sodium Chloride [Ns] 0 ml SUBCUT ONCE Heparin Sodium,Porcine Flush 500 unit IVFLUSH ONCE ondansetron ODT [Zofran ODT] 8 mg TRANSLINGU ONCE 03/01/20 09:22 Complete Blood Count Auto Diff Routine Comprehensive Met. Panel Routine 03/15/20 10:00 Complete Blood Count Auto Diff Stat Laboratory Last Values WBC 5.3 X10*3/uL (4.8-10.8) 03/15/20 10:00 RBC 3.46 X10*6/uL (4.20-5.50) L 03/15/20 10:00 Hgb 10.2 g/dl (12.0-16.0) L 03/15/20 10:00 Hct 32.0 % (37-47) L 03/15/20 10:00 MCV 92.5 fL (80-98) 03/15/20 10:00 MCH 29.5 pg (27.0-33.0) 03/15/20 10:00 MCHC 31.9 g/dl (31.0-35.0) 03/15/20 10:00 RDW 13.9 % (11.0-16.0) 03/15/20 10:00 Plt Count 188 X10*3/uL (160-400) 03/15/20 10:00 MPV 11.6 fL (9.4-12.3) 03/15/20 10:00 Immature Gran % (Auto) 0.4 % (0.0-0.4) 03/15/20 10:00 Neut % (Auto) 71.1 % (45-73) 03/15/20 10:00 Lymph % (Auto) 19.7 % (20-40) L 03/15/20 10:00 [place] % (Auto) 7.5 % (2-11) 03/15/20 10:00 Eos % (Auto) 1.1 % (0-4) 03/15/20 10:00 Baso % (Auto) 0.2 % (0-2) 03/15/20 10:00 Neut # (Auto) 4.2 X10*3/uL (2.0-8.3) 01/05/20 Unknown Lymph # (Auto) 1.1 X10*3/uL (1.2-4.9) L 03/15/20 10:00 [place] # (Auto) 0.4 X10*3/uL (0.1-1.2) 03/15/20 10:00 Eos # (Auto) 0.1 X10*3/uL (0.0-0.4) 03/15/20 10:00 Baso # (Auto) 0.0 X10*3/uL (0.0-0.2) 03/15/20 10:00 Abs Immat Gran (auto) 0.02 X10*3/uL (0.00-0.03) 03/15/20 10:00 Absolute Neuts (auto) 3.8 X10*3/uL (2.0-8.3) 03/15/20 10:00 Absolute Nucleated RBC 0.000 X10*3/uL (0.0-0.012) 03/15/20 10:00 Nucleated RBC % (auto) 0.0 /100WBC (0.0-0.2) 03/15/20 10:00 Sodium 140 mmol/L (135-145) 03/01/20 09:22 Potassium 3.5 mmol/l (3.3-5.1) 03/01/20 09:22 Chloride 107 mmol/L (96-108) 03/01/20 09:22 Carbon Dioxide 21 mmol/L (22-29) L 03/01/20 09:22 Anion Gap 16 (12-20) 03/01/20 09:22 BUN 16 mg/dL (9-16) 03/01/20 09:22 Creatinine 0.79 mg/dL (0.5-1.4) 03/01/20 09:22 Estim Creat Clear Calc 41.7 03/01/20 09:22 Estimated GFR > 60 03/01/20 09:22 Random Glucose 91 mg/dL (60-115) 03/01/20 09:22 Calcium 9.2 mg/dL (8.4-10.2) 12/02/20 09:22 Total Bilirubin 0.5 mg/dL (0.0-1.0) 03/01/20 09:22 AST 17 U/L (5-31) 03/01/20 09:22 ALT 13 U/L (0-31) 03/01/20 09:22 Alkaline Phosphatase 89 U/L (39-117) 03/01/20 09:22 Total Protein 7.1 g/dL (6.5-8.0) 03/01/20 09:22 Albumin 4.5 g/dL (3.5-5.0) 03/01/20 09:22 Progress Note: A/P (1) Multiple myeloma Status: Chronic Assessment and plan: 1. This is a pleasant 69-year-old female with IgA/kappa multiple myeloma. She has Stage III disease, based on the international staging system. She is Poor risk for myeloma, based on cytogenetics and molecular studies. Received treatment with Velcade/cyclophosphamide/Decadron for 8 cycles until November 2017. Denosumab for bone lesions was started on 08/18/17. She is on Zometa 4 mg IV every 3 months. She is on maintenance velcade 1.3 milligram/meter sq once every 2 weeks since August 2018. She is doing well, continue with current regimen. Follow up in 8 weeks. - Time Spent With Patient Total time spent is greater than 50% in coordination of care (as documented) at patient's floor/unit and/or counseling patient: 15 - 24 minutes
[2020-03-15 12:30] LABS: Alanine Aminotransferase 11 U/L (0-31); Albumin Level 4.2 g/dL (3.5-5.0); Alkaline Phosphatase 99 U/L (39-117); Anion Gap 13 (12-20); Aspartate Amino Transferase 18 U/L (5-31); Bilirubin Total 0.4 mg/dL (0.0-1.0); Blood Urea Nitrogen 19 mg/dL (9-16); Carbon Dioxide 26 mmol/L (22-29); Chloride 105 mmol/L (96-108); Creatinine Clr Calc Pharmacy 39.3; Estimated Glomerular Filt Rate > 60; Glucose Random 74 mg/dL (60-115); Potassium 3.7 mmol/l (3.3-5.1); Sodium 140 mmol/L (135-145)
[2020-03-15] MEDS: Heparin Sodium,Porcine Flush 500 UNIT/5 ML SYRINGE IVFLUSH (12:49)
--- NOTE | 2020-03-15 15:53 | MHC.HEMONC ---
Pt here for Velcade injection and follow up with Dr Schuster. States feeling well, no problems after last injection. Labs drawn and reviewed. Port also flushed with heparin. Velcade injection given, tolerated well. Scheduled to return in 2 weeks
[2020-03-29 09:18] LABS: MANUAL DIFF FLAG NO
[2020-03-29 09:20] LABS: Basophils Percent Auto 0.4 % (0-2); Eosinophils Absolute Auto 0.1 X10*3/uL (0.0-0.4); Eosinophils Percent Auto 1.2 % (0-4); Hematocrit 35.6 % (37-47); Hemoglobin 11.3 g/dl (12.0-16.0); Imm Gran Abs Auto 0.03 X10*3/uL (0.00-0.03); Imm Gran Pct Auto 0.5 % (0.0-0.4); Lymphocytes Absolute Auto 1.2 X10*3/uL (1.2-4.9); Lymphocytes Percent Auto 21.7 % (20-40); Mean Corpuscular HGB Conc 31.7 g/dl (31.0-35.0); Mean Corpuscular Volume 91.5 fL (80-98); Mean Platelet Volume 11.5 fL (9.4-12.3); Monocytes Absolute Auto 0.5 X10*3/uL (0.1-1.2); Monocytes Percent Auto 9.3 % (2-11); Neutrophils Absolute Auto 3.8 X10*3/uL (2.0-8.3); Neutrophils Percent Auto 66.9 % (45-73); Platelet Count 172 X10*3/uL (160-400); Red Blood Count 3.89 X10*6/uL (4.20-5.50); Red Cell Distribution Width 13.6 % (11.0-16.0); White Blood Count 5.6 X10*3/uL (4.8-10.8)
[2020-03-29 09:47] LABS: Alanine Aminotransferase 10 U/L (0-31); Albumin Level 4.3 g/dL (3.5-5.0); Alkaline Phosphatase 101 U/L (39-117); Anion Gap 17 (12-20); Aspartate Amino Transferase 22 U/L (5-31); Bilirubin Total 0.4 mg/dL (0.0-1.0); Blood Urea Nitrogen 20 mg/dL (9-16); Calcium 10.1 mg/dL (8.4-10.2); Carbon Dioxide 22 mmol/L (22-29); Chloride 105 mmol/L (96-108); Estimated Glomerular Filt Rate 53; Glucose Random 94 mg/dL (60-115); Potassium 4.1 mmol/l (3.3-5.1); Sodium 140 mmol/L (135-145); Total Protein 7.9 g/dL (6.5-8.0)
[2020-03-29 09:57] VITALS: BP 136/67; PULSE 89; RESP 18; TEMP 36.8; O2SAT 98; BMI 32.3
--- NOTE | 2020-03-29 12:31 | MHC.HEMONC ---
Pt here for chemo injection. Labs drawn and reviewed. Injection given and pt tolerated well. Scheduled to return in 2 weeks
--- NOTE | 2020-04-11 16:42 | MHC.HEMONC ---
Called patient and left voicemail to reschedule chemotherapy.
[2020-04-12 11:44] LABS: Hematocrit 22.5 % (37-47); Hemoglobin 7.4 g/dl (12.0-16.0); Mean Corpuscular HGB Conc 32.9 g/dl (31.0-35.0); Mean Corpuscular Hemoglobin 29.2 pg (27.0-33.0); Mean Corpuscular Volume 88.9 fL (80-98); Mean Platelet Volume 10.9 fL (9.4-12.3); Platelet Count 239 X10*3/uL (160-400); Red Blood Count 2.53 X10*6/uL (4.20-5.50); Red Cell Distribution Width 13.9 % (11.0-16.0); White Blood Count 8.3 X10*3/uL (4.8-10.8)
[2020-04-12 12:20] LABS: Alanine Aminotransferase 103 U/L (0-31); Albumin Level 2.9 g/dL (3.5-5.0); Alkaline Phosphatase 479 U/L (39-117); Anion Gap 17 (12-20); Aspartate Amino Transferase 237 U/L (5-31); Bilirubin Total 0.7 mg/dL (0.0-1.0); Blood Urea Nitrogen 29 mg/dL (9-16); Calcium 8.4 mg/dL (8.4-10.2); Carbon Dioxide 23 mmol/L (22-29); Chloride 102 mmol/L (96-108); Creatinine Clr Calc Pharmacy 40.1; Estimated Glomerular Filt Rate > 60; Glucose Random 117 mg/dL (60-115); Potassium 4.9 mmol/l (3.3-5.1); Sodium 137 mmol/L (135-145); Total Protein 6.2 g/dL (6.5-8.0)
--- NOTE | 2020-04-12 13:51 | MHC.HEMONC ---
Pt brought here from rehab. Treatment was cancelled due to pt having surgery recently, and is rescheduled for 2 weeks. Lab draw done, results reviewed. Pt will need blood transfusion, which will be given at the rehab.
--- NOTE | 2020-04-12 13:54 | MHC.HEMONCSW ---
TYPE&SCREEN ALONG WITH BLOOD TRANSFUSION ORDERS FAXED TO YARELIS AT [facility].
[2020-04-13 14:32] LABS: IgA 937 mg/dL (70-320); IgG 384 mg/dL (600-1540); IgM 28 mg/dL (50-300)
--- NOTE | 2020-04-26 09:25 | MHC.HEMONCSW ---
FRACTURED LEG FROM TWISTING LEG LAST MONTH. WENT TO [facility] ABD WAS DISCHARGED HOME YESTERDAY. I WILL NEED TO ARRANGE TRANSPORTATION SHE IS NON WEIGHT BEARING. RECEIVED CALL FROM TAJ CHOE AT [facility]...PATIENT IS TEMPORARILY STAYING WITH HER SISTER WHILE SHE RECOVERS. # [phone]. TAJ FILED ELDER AT RISK WITH [facility] EMOTIONAL AND MEDICAL [facility]BUSE. THEY ARE INVESTIGATING THE AND THEIR SON WILL FOLLOW UP JEROME.
--- NOTE | 2020-04-26 11:44 | MHC.HEMONCSW ---
[facility] she ill have to private pay or try to see if the [facility] [place] van can transport her to next appointment. appointment will be 05/02/20 4pm. hue will call van service. sisterhowie home phone is [phone].
--- NOTE | 2020-04-28 09:07 | MHC.HEMONC ---
DUE TO NON WEIGHT BEARING STATUS, BRAD MUST RELY ON VAN TRANSPORT. PLEASE PRIORITIZE HER VISIT SO SHE DOESN'T MISS THE VAN
[2020-05-02 09:38] VITALS: BP 158/85; PULSE 109; RESP 18; TEMP 37.1; O2SAT 100; BMI 32.3
[2020-05-02 10:01] LABS: MANUAL DIFF FLAG NO
[2020-05-02 10:11] LABS: Basophils Percent Auto 0.1 % (0-2); Eosinophils Absolute Auto 0.1 X10*3/uL (0.0-0.4); Eosinophils Percent Auto 1.7 % (0-4); Hematocrit 28.6 % (37-47); Imm Gran Abs Auto 0.05 X10*3/uL (0.00-0.03); Imm Gran Pct Auto 0.7 % (0.0-0.4); Lymphocytes Absolute Auto 1.2 X10*3/uL (1.2-4.9); Lymphocytes Percent Auto 17.4 % (20-40); Mean Corpuscular HGB Conc 31.5 g/dl (31.0-35.0); Mean Corpuscular Hemoglobin 28.5 pg (27.0-33.0); Mean Corpuscular Volume 90.5 fL (80-98); Mean Platelet Volume 10.2 fL (9.4-12.3); Monocytes Absolute Auto 0.8 X10*3/uL (0.1-1.2); Monocytes Percent Auto 10.9 % (2-11); Neutrophils Absolute Auto 4.8 X10*3/uL (2.0-8.3); Neutrophils Percent Auto 69.2 % (45-73); Platelet Count 290 X10*3/uL (160-400); Red Blood Count 3.16 X10*6/uL (4.20-5.50); Red Cell Distribution Width 14.8 % (11.0-16.0); White Blood Count 6.9 X10*3/uL (4.8-10.8)
--- NOTE | 2020-05-02 10:23 | PM.HEMONCPN ---
Medical Summary - Medical Summary Date of Service: 05/02/20 Chief complaint: Left leg fracture Medical Summary: DIAGNOSIS: IGA MULTIPLE MYELOMA. Admitted for acute renal failure and hypercalcemia, 07/04/17. Her hemoglobin was 8.5, creatinine 2.07, calcium 15.6, total protein 10.8, albumin 2.8. Serum immunofixation showed elevated IgA of 5293, suppressed IgG and IgM levels, IgA kappa monoclonal band. Urine total protein was elevated at 48 mg per DL (<12). Beta-2 microglobulin 10.2 mg/L. elevated kappa/lambda ratio of 18.96. 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 Flow cytometry showed CD38 positive cells that coexpressed CD56, CD23 (dim) both surface and cytoplasmic kappa light chain, negative for CD19 and CD20. 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 Cytogenetics 43 X, -X rae (9)t (1:9), -13q, -14/ 46XX. karyotype showed abnormal hypodiploid karyotype including loss of chromosome 13 and 14 as well as gain of 1 q. which is compatible with plasma cell neoplasm. Gain of 1 q. has unfavorable prognosis. 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 Bone marrow FISH analysis revealed 42% positive for IGH-FGFR3, t (4;14), which gives her a high risk prognostic category. Skeletal survey showed multiple osteolytic lesions in the skull and axial skeleton. No pathological factors. CURRENT THERAPY: 1. She has been given pamidronate on July 05 for hypercalcemia. 2. Started received treatment with Velcade/cyclophosphamide/Decadron for 8 cycles until November 2017. 3. Denosumab for bone lesions from 08/18/17. Repeat bone marrow biopsy performed 12/26/17 shows normocytic bone marrow with active trilineage hematopoiesis and less than 1% plasma cells. Findings consistent with response to chemotherapy and bone marrow recovery. Flow cytometry shows no clonal plasma cells. PET scan performed March 2018 showed mild FDG activity in the right elbow which is nonspecific, no lytic lesion in the right forearm or abnormal FDG activity. No additional abnormalities strongly suspicious for metastatic or other malignant lesions. Received maintenance Revlimid 10 mg once a day from December 2017 to August 06, 2018, stopped in July because of because of diffuse body rash. Started Velcade maintenance every 2 weeks. Fracture of left femur in March 2020. ? Pathological, biopsy not done. Zometa discontinued. Interval History Interval history: Patient is here for follow-up and scheduled treatment. Unfortunately, she broke her left femur a few weeks ago and underwent surgery. She was standing at her kitchen counter when she felt her knee buckle and she fell to the floor. She was in rehab for several days, now she is home with her sister. She is doing better but reports generalized weakness. Pain in her left leg is improving. She has noticed increased swelling in her legs, she is undergoing physical therapy. She denies any chest pain, shortness of breath, fever or chills. No change in bowel habits. Review of Systems - Constitutional Reports no additional constitutional complaints - Cardiovascular Reports no additional cardiovascular complaints - Respiratory Reports no additional respiratory complaints - Gastrointestinal Reports no additional gastrointestinal complaints [facility] Medical History: Medical History (Last Reviewed 04/19/20 @ 09:35 by ANDRE Maldonado) GERD (gastroesophageal reflux disease) History of IBS HTN (hypertension) Hx of multiple myeloma Hyperlipidemia Right humeral fracture Thrombocytopenia Family History: Family History (Last Reviewed 04/19/20 @ 09:35 by ANDRE Maldonado) Father Bladder cancer Mother ESRD (end stage renal disease) on dialysis Surgical History: Surgical History (Last Reviewed 04/19/20 @ 09:35 by ANDRE Maldonado) H/O hernia repair History of esophagogastroduodenoscopy (EGD) History of left knee surgery History of right knee surgery Previous section Social History: Social History (Last Reviewed 04/19/20 @ 09:35 by ANDRE Maldonado) Living Situation History: Household Members: Family Housing: House Alcohol History: Alcohol intake: never Alcohol History Details: Alcohol intake frequency: does not drink Tobacco History: Smoking Status: Never smoker Second Hand Smoke Exposure: No Advance Directives: Advance Directives: Yes Advance Directives Information Provided: No Advance Directives on File: No Occupation Assessmet: service: No Current occupational status: retired Smoking status: Never smoker Oncology Screenings - ECOG Performance Status ECOG Performance Status: 3 Home Medications and Allergies Current Medications: Current Medications Generic Name Dose Route Start Last Admin Trade Name Freq PRN Reason Stop Dose Admin Heparin Sodium (Porcine) 500 unit 05/02/20 00:00 Heparin Sodium,Porcine Flush 500 Unit/5 Ml Syringe IVFLUSH 05/02/20 23:59 ONCE ROSA Ondansetron HCl 8 mg 05/02/20 00:00 Ondansetron Odt 8 Mg Tab.Rapdis TRANSLINGU 05/02/20 23:59 ONCE ROSA Home Medications Medication Instructions Recorded Confirmed Type amlodipine 10 mg PO DAILY 01/05/20 04/05/20 History atorvastatin 20 mg PO BEDTIME 01/05/20 04/05/20 History calcium carbonate [Antacid Ext Str 1 tab PO BID 01/05/20 04/05/20 History (calcium carb)] docusate sodium [DOK] 100 mg PO BEDTIME 01/05/20 04/05/20 History omeprazole 20 mg DAILY 01/05/20 04/05/20 History tramadol 1 tab PO Q12H PRN 04/05/20 04/05/20 History Allergies Allergy/AdvReac Type Severity Reaction Status Date / Time lenalidomide [From REVLIMID] Allergy Intermediate RASH HEAD Verified 04/19/20 09:35 TO TOE Exam Vital signs: Vital Signs Temp 98.8 F 05/02/20 09:38 Pulse 109 H 05/02/20 09:38 Resp 18 05/02/20 09:38 BP 158/85 H 05/02/20 09:38 Pulse Ox 100 05/02/20 09:38 Intake & Output 05/01/20 05/02/20 05/02/20 18:59 06:59 18:59 Other: Weight 56.4 kg Weight 56.4 kg Body Mass Index 32.3 - Constitutional Present: no acute distress - Routine HEENT Exam Head: Present: normal inspection - Routine Neck Exam Present: full ROM. Absent: lymphadenopathy - Routine Respiratory Exam Present: CTAB - Routine Cardiovascular Exam Cardiovascular: Present: RRR, S1, S2 - Routine Abdominal Exam Present: normal bowel sounds. Absent: organomegaly - Routine Extremities Exam Absent: pedal edema Data - Labs CBC & Chem 7: 05/02/20 09:55 05/02/20 09:55 Labs: 01/05/20 Complete Blood Count Auto Diff Stat Comprehensive Met. Panel Stat 01/05/20 00:00 Bortezomib for SUBCUT use [Velcade for SUBCUT use] 1.9 mg 0.9 % Sodium Chloride [Ns] 0 ml SUBCUT ONCE Heparin Sodium,Porcine Flush 500 unit IVFLUSH ONCE ondansetron ODT [Zofran ODT] 8 mg TRANSLINGU ONCE 01/19/20 00:00 Bortezomib for SUBCUT use [Velcade for SUBCUT use] 1.9 mg 0.9 % Sodium Chloride [Ns] 0 ml SUBCUT ONCE Heparin Sodium,Porcine Flush 500 unit IVFLUSH ONCE ondansetron ODT [Zofran ODT] 8 mg TRANSLINGU ONCE 01/19/20 10:00 Complete Blood Count Auto Diff Routine Comprehensive Met. Panel Routine 02/02/20 00:00 Bortezomib for SUBCUT use [Velcade for SUBCUT use] 1.9 mg 0.9 % Sodium Chloride [Ns] 0 ml SUBCUT ONCE Heparin Sodium,Porcine Flush 500 unit IVFLUSH ONCE ondansetron ODT [Zofran ODT] 8 mg TRANSLINGU ONCE 02/02/20 10:13 Complete Blood Count Auto Diff Routine Comprehensive Met. Panel Routine 02/02/20 11:27 Zoledronic Acid [Zometa] 3.3 mg 0.9 % Sodium Chloride [Ns] 100 ml IV ONCE 02/16/20 00:00 Bortezomib for SUBCUT use [Velcade for SUBCUT use] 1.9 mg 0.9 % Sodium Chloride [Ns] 0 ml SUBCUT ONCE Heparin Sodium,Porcine Flush 500 unit IVFLUSH ONCE ondansetron ODT [Zofran ODT] 8 mg TRANSLINGU ONCE 02/16/20 11:00 Alteplase Cath Clear [Cathflo Activase] 2 mg INTRACATH ONCE ONE 02/16/20 11:40 Complete Blood Count Auto Diff Routine Comprehensive Met. Panel Routine 03/01/20 00:00 Bortezomib for SUBCUT use [Velcade for SUBCUT use] 1.9 mg 0.9 % Sodium Chloride [Ns] 0 ml SUBCUT ONCE Heparin Sodium,Porcine Flush 500 unit IVFLUSH ONCE ondansetron ODT [Zofran ODT] 8 mg TRANSLINGU ONCE 03/01/20 09:22 Complete Blood Count Auto Diff Routine Comprehensive Met. Panel Routine 03/15/20 00:00 Bortezomib for SUBCUT use [Velcade for SUBCUT use] 1.9 mg 0.9 % Sodium Chloride [Ns] 0 ml SUBCUT ONCE Heparin Sodium,Porcine Flush 500 unit IVFLUSH ONCE ondansetron ODT [Zofran ODT] 8 mg TRANSLINGU ONCE 03/15/20 10:00 Complete Blood Count Auto Diff Stat Comprehensive Met. Panel Routine 03/29/20 00:00 Bortezomib for SUBCUT use [Velcade for SUBCUT use] 1.9 mg 0.9 % Sodium Chloride [Ns] 0 ml SUBCUT ONCE Heparin Sodium,Porcine Flush 500 unit IVFLUSH ONCE ondansetron ODT [Zofran ODT] 8 mg TRANSLINGU ONCE 03/29/20 09:10 Complete Blood Count Auto Diff Routine Comprehensive Met. Panel Routine 04/12/20 11:37 Complete Blood Count no Diff Routine Comprehensive Met. Panel Routine Immunofixation Pnl, Serum Routine Laboratory Last Values WBC 8.3 X10*3/uL (4.8-10.8) 04/12/20 11:37 RBC 2.53 X10*6/uL (4.20-5.50) L 04/12/20 11:37 Hgb 7.4 g/dl (12.0-16.0) L 04/12/20 11:37 Hct 22.5 % (37-47) L 04/12/20 11:37 MCV 88.9 fL (80-98) 04/12/20 11:37 MCH 29.2 pg (27.0-33.0) 04/12/20 11:37 MCHC 32.9 g/dl (31.0-35.0) 04/12/20 11:37 RDW 13.9 % (11.0-16.0) 04/12/20 11:37 Plt Count 239 X10*3/uL (160-400) D 04/12/20 11:37 MPV 10.9 fL (9.4-12.3) 04/12/20 11:37 Immature Gran % (Auto) 0.5 % (0.0-0.4) H 03/29/20 09:10 Neut % (Auto) 66.9 % (45-73) 03/29/20 09:10 Lymph % (Auto) 21.7 % (20-40) 03/29/20 09:10 Dougherty % (Auto) 9.3 % (2-11) 03/29/20 09:10 Eos % (Auto) 1.2 % (0-4) 03/29/20 09:10 Baso % (Auto) 0.4 % (0-2) 03/29/20 09:10 Neut # (Auto) 4.2 X10*3/uL (2.0-8.3) 01/05/20 Unknown Lymph # (Auto) 1.2 X10*3/uL (1.2-4.9) 03/29/20 09:10 Dougherty # (Auto) 0.5 X10*3/uL (0.1-1.2) 03/29/20 09:10 Eos # (Auto) 0.1 X10*3/uL (0.0-0.4) 03/29/20 09:10 Baso # (Auto) 0.0 X10*3/uL (0.0-0.2) 03/29/20 09:10 Abs Immat Gran (auto) 0.03 X10*3/uL (0.00-0.03) 03/29/20 09:10 Absolute Neuts (auto) 3.8 X10*3/uL (2.0-8.3) 03/29/20 09:10 Absolute Nucleated RBC 0.000 X10*3/uL (0.0-0.012) 04/12/20 11:37 Nucleated RBC % (auto) 0.0 /100WBC (0.0-0.2) 04/12/20 11:37 Sodium 137 mmol/L (135-145) 04/12/20 11:37 Potassium 4.9 mmol/l (3.3-5.1) 04/12/20 11:37 Chloride 102 mmol/L (96-108) 04/12/20 11:37 Carbon Dioxide 23 mmol/L (22-29) 04/12/20 11:37 Anion Gap 17 (12-20) 04/12/20 11:37 BUN 29 mg/dL (9-16) H D 04/12/20 11:37 Creatinine 0.81 mg/dL (0.5-1.4) 04/12/20 11:37 Estim Creat Clear Calc 40.1 04/12/20 11:37 Estimated GFR > 60 04/12/20 11:37 Random Glucose 117 mg/dL (60-115) H 04/12/20 11:37 Calcium 8.4 mg/dL (8.4-10.2) 04/12/20 11:37 Total Bilirubin 0.7 mg/dL (0.0-1.0) 04/12/20 11:37 AST 237 U/L (5-31) H 04/12/20 11:37 ALT 103 U/L (0-31) H 04/12/20 11:37 Alkaline Phosphatase 479 U/L (39-117) H D 04/12/20 11:37 Total Protein 6.2 g/dL (6.5-8.0) L D 04/12/20 11:37 Albumin 2.9 g/dL (3.5-5.0) L D 04/12/20 11:37 IgG Total 384 mg/dL (600-1540) L 04/12/20 11:37 IgA Total 937 mg/dL (70-320) H 04/12/20 11:37 IgM 28 mg/dL (50-300) L 04/12/20 11:37 HILARIO Interpretation SEE NOTE 04/12/20 11:37 Progress Note: A/P (1) Multiple myeloma Status: Chronic Assessment and plan: 1. This is a pleasant 69-year-old female with IgA/kappa multiple myeloma. She had Stage III disease at diagnosis in June 2017, based on the international staging system. She is Poor risk for myeloma, based on cytogenetics and molecular studies. Received treatment with Velcade/cyclophosphamide/Decadron for 8 cycles until November 2017. Denosumab for bone lesions was started on 08/18/17. She is on Zometa 4 mg IV every 3 months. She is on maintenance velcade 1.3 milligram/meter sq once every 2 weeks since August 2018. Patient suffered what appears to be a pathological fracture of her left femur. Unfortunately a biopsy was not performed. Blood work also shows increase in IgA level raising possibility of disease recurrence. I have ordered a whole-body PET-CT, beta 2 microglobulin and other blood tests are pending. I am discontinuing Zometa since it has been associated with femur fractures usually when it is given for more than 2 years. Patient has been on this since January 2019. She will be switched back to denosumab for bone lesions. For her progressive disease, she will be started on multi agent therapy. For 1st relapse she will be treated with daratumumab 16 mg/kg weekly along with Revlimid 10 mg daily and dexamethasone 40 mg weekly as per the POLLUX trial which has shown a significantly higher overall response rate in the daratumumab group. This was also associated with higher rate of complete response with a P value less than 0.001. Most common adverse events being neutropenia, anemia and thrombocytopenia. Infusion related reactions occurred in daratumumab, less with subcutaneous rather than intravenous infusion. Pomalidomide will be substituted for Revlimid because of allergic reaction to Revlimid with diffuse body rash. Follow-up in 2-3 weeks. - Time Spent With Patient Total time spent is greater than 50% in coordination of care (as documented) at patient's floor/unit and/or counseling patient: 25 - 35 minutes
[2020-05-02 10:42] LABS: Alanine Aminotransferase 9 U/L (0-31); Albumin Level 3.1 g/dL (3.5-5.0); Alkaline Phosphatase 121 U/L (39-117); Anion Gap 18 (12-20); Aspartate Amino Transferase 21 U/L (5-31); Bilirubin Total 0.3 mg/dL (0.0-1.0); Blood Urea Nitrogen 9 mg/dL (9-16); Calcium 8.9 mg/dL (8.4-10.2); Carbon Dioxide 21 mmol/L (22-29); Chloride 103 mmol/L (96-108); Creatinine Clr Calc Pharmacy 44.5; Estimated Glomerular Filt Rate > 60; Glucose Random 88 mg/dL (60-115); Potassium 3.4 mmol/L (3.3-5.1); Sodium 139 mmol/L (135-145); Total Protein 7.9 g/dL (6.5-8.0)
[2020-05-02] MEDS: Heparin Sodium,Porcine Flush 500 UNIT/5 ML SYRINGE IVFLUSH (11:11)
--- NOTE | 2020-05-02 11:15 | MHC.HEMONCSW ---
[facility] PET SCAN ORDERED FOR 05/09/20, REQUESTED TO KNOW EXACT TIME JEROME DUE TO TRANSPORTATION ISSUES. MEDICARE INSURANCE.
--- NOTE | 2020-05-02 11:47 | MHC.HEMONCSW ---
XSHERYLVA, MEDICARE, NO PA REQUIRED.
--- NOTE | 2020-05-02 11:54 | MHC.HEMONCSW ---
PATIENT HERE IN FOLLOW UP WITH HER SISTER. SISTER MADE [facility] PROXY. [facility] INVOLVED, [facility] INITIALLY FILED WITH THEM BECAUSE THEY WOULDN'T ALLOW HER TO RETURN HOME POST REHAB. ALLOWED PATIENT TO DISCUSS HER MANY FEELINGS FROM EMBARRASSMENT TO HURT TO ANGER. SHE REPORTS SHE IS SAFE AT HER SISTERS. [facility] HAS YET TO COMPLETE THE INVESTIGATION. MUCH REASSURANCE AND SUPPORT PROVIDED. [facility] [employer] INFO ALSO PROVIDED. REFUSES COUNSELING REFERRAL AT THIS TIME. [facility]URENCE HIGH SCHEDULED FOR 05/09/20, HEAVEN TO CALL WITH EXACT TIME BECAUSE GABY KINGSTON NEEDS ONE WEEK NOTICE. EDUCATION AND SUPPORT PROVIDED. PATIENT IS AWARE OF MY AVAILABILITY.
--- NOTE | 2020-05-02 13:14 | MHC.HEMONCSW ---
DARZALEX, REVLIMID AND DEXAMETHASONE DO NOT REQUIRE PA. INSURANCE IS MEDICARE.
--- NOTE | 2020-05-02 14:03 | MHC.HEMONC ---
pt attended with sister, whom shes still living with. plan to get PET next friday, norm aware. dr decker may change chemo tx pending results. chenaged zometa to denosumab q3m starting 06/13, no pa needed
--- NOTE | 2020-05-03 09:39 | MHC.HEMONCSW ---
PHONED, INFORMED PATIENT LAURENCE PET WILL BE 05/09/20 AT 2:45. SHE WILL ARRANGE PVTA [phone].
[2020-05-03 19:28] LABS: Kappa Light Chain, Free Serum 1040.2 mg/L (3.3-19.4); Kappa/Lambda Lt Ch Free Ratio 160.03 (0.26-1.65); Lambda Light Chain, Free Serum 6.5 mg/L (5.7-26.3)
--- NOTE | 2020-05-19 13:44 | MHC.HEMONC ---
[facility] for POMALYST (pomalidomide) 4mg APPROVED. TICKET#: [id number] START DATE: 05/05/20 to Until further notice. DOCUMENT SCANNED IN PT'S CHART
--- NOTE | 2020-05-19 13:49 | MHC.HEMONC ---
KATIE IS WORKING ON [employer] [facility]IST[facility] W/PT
--- NOTE | 2020-05-19 15:01 | MHC.HEMONCSW ---
OPEN PROTECTIVE CASE AGAINST . ISSUE; HE WILL NOT PROVIDE FINANCIAL INFO WHICH IS NEEDED FOR POMALYST FINANCIAL ASSISTANCE. DR. PITTS NOW CHANGES MED TO DARZALEX.
--- NOTE | 2020-05-23 16:01 | MHC.HEMONCSW ---
PER KATIE, ADMISSIONS WORKER AT [facility], THE PATIENT CAN NOT RECEIVE CHEMO WHILE SHE IS IN REHAB. I INFORMED DR. PITTS.
[2020-06-05 15:25] VITALS: BP 115/59; PULSE 104; RESP 20; TEMP 37.3; O2SAT 97
--- NOTE | 2020-06-05 15:48 | P.PNHO_ITS ---
Medical Summary - Medical Summary Date of Service: 06/05/20 Chief complaint: Weakness, lethargy Medical Summary: DIAGNOSIS: IGA MULTIPLE MYELOMA. Admitted for acute renal failure and hypercalcemia, 07/04/17. Her hemoglobin was 8.5, creatinine 2.07, calcium 15.6, total protein 10.8, albumin 2.8. Serum immunofixation showed elevated IgA of 5293, suppressed IgG and IgM levels, IgA kappa monoclonal band. Urine total protein was elevated at 48 mg per DL (<12). Beta-2 microglobulin 10.2 mg/L. elevated kappa/lambda ratio of 18.96. 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 Flow cytometry showed CD38 positive cells that coexpressed CD56, CD23 (dim) both surface and cytoplasmic kappa light chain, negative for CD19 and CD20. 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 Cytogenetics 43 X, -X rae (9)t (1:9), -13q, -14/ 46XX. karyotype showed abnormal hypodiploid karyotype including loss of chromosome 13 and 14 as well as gain of 1 q. which is compatible with plasma cell neoplasm. Gain of 1 q. has unfavorable prognosis. 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 Bone marrow FISH analysis revealed 42% positive for IGH-FGFR3, t (4;14), which gives her a high risk prognostic category. Skeletal survey showed multiple osteolytic lesions in the skull and axial skeleton. No pathological factors. CURRENT THERAPY: 1. She has been given pamidronate on July 05 for hypercalcemia. 2. Started received treatment with Velcade/cyclophosphamide/Decadron for 8 cycles until November 2017. 3. Denosumab for bone lesions from 08/18/17. Repeat bone marrow biopsy performed 12/26/17 shows normocytic bone marrow with active trilineage hematopoiesis and less than 1% plasma cells. Findings consistent with response to chemotherapy and bone marrow recovery. Flow cytome try shows no clonal plasma cells. PET scan performed March 2018 showed mild FDG activity in the right elbow which is nonspecific, no lytic lesion in the right forearm or abnormal FDG activity. No additional abnormalities strongly suspicious for metastatic or other malignant lesions. Received maintenance Revlimid 10 mg once a day from December 2017 to August 06, 2018, stopped in July because of because of diffuse body rash. Started Velcade maintenance every 2 weeks. Fracture of left femur in March 2020. ? Pathological, biopsy not done. Zometa discontinued. Interval History Interval history: Patient was [facility] from the [facility] from follow-up. She was noted to have elevated calcium levels above 13. Today patient is rather lethargic and states t hat she is in pain in her hips and legs. She has had a very poor appetite, she has been unable to get out of bed or chair. No reports of fever or chills. She feels slightly short of breath. [facility] Medical History: Medical History (Last Reviewed 06/05/20 @ 18:28 by Chai Thao MD) GERD (gastroesophageal reflux disease) History of IBS HTN (hypertension) Hx of multiple myeloma Hyperlipidemia Right humeral fracture Thrombocytopenia Family History: Family History (Last Reviewed 06/05/20 @ 18:28 by Chai Thao MD) Father Bladder cancer Mother ESRD (end stage renal disease) on dialysis Surgical History: Surgical History (Last Reviewed 06/05/20 @ 18:28 by Chai Thao MD) H/O hernia repair History of esophagogastroduodenoscopy (EGD) History of left knee surgery History of right knee surgery Previous section Social History: Social History (Last Reviewed 06/05/20 @ 18:28 by Chai Thao MD) Living Situation History: Household Members: Family Housing: Assisted Alcohol History: Alcohol intake: never Alcohol History Details: Alcohol intake frequency: does not drink Tobacco History: Smoking Status: Never smoker Second Hand Smoke Exposure: No Substance Use History: Use of substances other than those prescribed or required for medical reasons : No Currently Displaying Signs/Symptoms of Drug Intoxication Withdrawal: No Advance Directives: Advance Directives: Yes Advance Directives on File: Yes Advance Directives Date on File: 05/02/20 Homicidal Assessment: Do you have thoughts of harming others: None Do you have a plan to hurt others: No Plan Nutrition Assessment: Recently lost weight without trying: Unsure Eating poorly because of decreased appetite: Yes Occupation Assessmet: service: No Current occupational status: retired Smoking status: Never smoker Oncology Screenings - ECOG Performance Status ECOG Performance Status: 4 Home Medications and Allergies Home Medications Medication Instructions Recorded Confirmed Type amlodipine 10 mg PO DAILY 01/05/20 06/05/20 History atorvastatin 20 mg PO BEDTIME 01/05/20 06/05/20 History calcium carbonate [Antacid Ext Str 1 tab PO BID 01/05/20 06/05/20 History (calcium carb)] omeprazole 20 mg DAILY 01/05/20 06/05/20 History ferrous gluconate 236 mg PO DAILY 06/05/20 06/05/20 History oxycodone 10 mg PO Q6H 06/05/20 06/05/20 History Allergies Allergy/AdvReac Type Severity Reaction Status Date / Time lenalidomide [From REVLIMID] Allergy Intermediate RASH HEAD Verified 05/17/20 13:47 TO TOE Exam Vital signs: Vital Signs Temp 99.1 F 06/05/20 15:25 Pulse 104 H 06/05/20 15:25 Resp 20 06/05/20 15:25 BP 115/59 L 06/05/20 15:25 Pulse Ox 97 06/05/20 15:25 Weight 56.4 kg Body Mass Index 32.3 - Constitutional Present: moderate distress, chronically ill appearing, somnolent - Routine HEENT Exam Eye: Present: conjunctivae pale Comments: bony protrusions on scalp - Routine Neck Exam Present: full ROM. Absent: lymphadenopathy - Routine Respiratory Exam Present: decreased breath sounds, CTAB - Routine Cardiovascular Exam Cardiovascular: Present: RRR, S1, S2 - Routine Abdominal Exam Present: normal bowel sounds. Absent: organomegaly - Routine Extremities Exam Present: joint swelling. Absent: pedal edema - Routine Neurological Exam Present: altered mental status, normal speech Data - Labs CBC & Chem 7: 06/05/20 16:15 06/05/20 16:15 Labs: 01/05/20 Complete Blood Count Auto Diff Stat Comprehensive Met. Panel Stat 01/05/20 00:00 Bortezomib for SUBCUT use [Velcade for SUBCUT use] 1.9 mg 0.9 % Sodium Chloride [Ns] 0 ml SUBCUT ONCE Heparin Sodium,Porcine Flush 500 unit IVFLUSH ONCE ondansetron ODT [Zofran ODT] 8 mg TRANSLINGU ONCE 01/19/20 00:00 Bortezomib for SUBCUT use [Velcade for SUBCUT use] 1.9 mg 0.9 % Sodium Chloride [Ns] 0 ml SUBCUT ONCE Heparin Sodium,Porcine Flush 500 unit IVFLUSH ONCE ondansetron ODT [Zofran ODT] 8 mg TRANSLINGU ONCE 01/19/20 10:00 Complete Blood Count Auto Diff Routine Comprehensive Met. Panel Routine 02/02/20 00:00 Bortezomib for SUBCUT use [Velcade for SUBCUT use] 1.9 mg 0.9 % Sodium Chlori de [Ns] 0 ml SUBCUT ONCE Heparin Sodium,Porcine Flush 500 unit IVFLUSH ONCE ondansetron ODT [Zofran ODT] 8 mg TRANSLINGU ONCE 02/02/20 10:13 Complete Blood Count Auto Diff Routine Comprehensive Met. Panel Routine 02/02/20 11:27 Zoledronic Acid [Zometa] 3.3 mg 0.9 % Sodium Chloride [Ns] 100 ml IV ONCE 02/16/20 00:00 Bortezomib for SUBCUT use [Velcade for SUBCUT use] 1.9 mg 0.9 % Sodium Chloride [Ns] 0 ml SUBCUT ONCE Heparin Sodium,Porcine Flush 500 unit IVFLUSH ONCE ondansetron ODT [Zofran ODT] 8 mg TRANSLINGU ONCE 02/16/20 11:00 Alteplase Cath Clear [Cathflo Activase] 2 mg INTRACATH ONCE ONE 02/16/20 11:40 Complete Blood Count Auto Diff Routine Comprehensive Met. Panel Routine 03/01/20 00:00 Bortezomib for SUBCUT use [Velcade for SUBCUT use] 1.9 mg 0.9 % Sodium Chloride [Ns] 0 ml SUBCUT ONCE Heparin Sodium,Porcine Flush 500 unit IVFLUSH ONCE ondansetron ODT [Zofran ODT] 8 mg TRANSLINGU ONCE 03/01/20 09:22 Complete Blood Count Auto Diff Routine Comprehensive Met. Panel Routine 03/15/20 00:00 Bortezomib for SUBCUT use [Velcade for SUBCUT use] 1.9 mg 0.9 % Sodium Chloride [Ns] 0 ml SUBCUT ONCE Heparin Sodium,Porcine Flush 500 unit IVFLUSH ONCE ondansetron ODT [Zofran ODT] 8 mg TRANSLINGU ONCE 03/15/20 10:00 Complete Blood Count Auto Diff Stat Comprehensive Met. Panel Routine 03/29/20 00:00 Bortezomib for SUBCUT use [Velcade for SUBCUT use] 1.9 mg 0.9 % Sodium Chloride [Ns] 0 ml SUBCUT ONCE Heparin Sodium,Porcine Flush 500 unit IVFLUSH ONCE ondansetron ODT [Zofran ODT] 8 mg TRANSLINGU ONCE 03/29/20 09:10 Complete Blood Count Auto Diff Routine Comprehensive Met. Panel Routine 04/12/20 11:37 Complete Blood Count no Diff Routine Comprehensive Met. Panel Routine Immunofixation Pnl, Serum Routine Laboratory Last Values WBC 8.3 X10*3/uL (4.8-10.8) 04/12/20 11:37 RBC 2.53 X10*6/uL (4.20-5.50) L 04/12/20 11:37 Hgb 7.4 g/dl (12.0-16.0) L 04/12/20 11:37 Hct 22.5 % (37-47) L 04/12/20 11:37 MCV 88.9 fL (80-98) 04/12/20 11:37 MCH 29.2 pg (27.0-33.0) 04/12/20 11:37 MCHC 32.9 g/dl (31.0-35.0) 04/12/20 11:37 RDW 13.9 % (11.0-16.0) 04/12/20 11:37 Plt Count 239 X10*3/uL (160-400) D 04/12/20 11:37 MPV 10.9 fL (9.4-12.3) 04/12/20 11:37 Immature Gran % (Auto) 0.5 % (0.0-0.4) H 03/29/20 09:10 Neut % (Auto) 66.9 % (45-73) 03/29/20 09:10 Lymph % (Auto) 21.7 % (20-40) 03/29/20 09:10 [place] % (Auto) 9.3 % (2-11) 03/29/20 09:10 Eos % (Auto) 1.2 % (0-4) 03/29/20 09:10 Baso % (Auto) 0.4 % (0-2) 03/29/20 09:10 Neut # (Auto) 4.2 X10*3/uL (2.0-8.3) 01/05/20 Unknown Lymph # (Auto) 1.2 X10*3/uL (1.2-4.9) 03/29/20 09:10 [place] # (Auto) 0.5 X10*3/uL (0.1-1.2) 03/29/20 09:10 Eos # (Auto) 0.1 X10*3/uL (0.0-0.4) 03/29/20 09:10 Baso # (Auto) 0.0 X10*3/uL (0.0-0.2) 03/29/20 09:10 Abs Immat Gran (auto) 0.03 X10*3/uL (0.00-0.03) 03/29/20 09:10 Absolute Neuts (auto) 3.8 X10*3/uL (2.0-8.3) 03/29/20 09:10 Absolute Nucleated RBC 0.000 X10*3/uL (0.0-0.012) 04/12/20 11:37 Nucleated RBC % (auto) 0.0 /100WBC (0.0-0.2) 04/12/20 11:37 Sodium 137 mmol/L (135-145) 04/12/20 11:37 Potassium 4.9 mmol/l (3.3-5.1) 04/12/20 11:37 Chloride 102 mmol/L (96-108) 04/12/20 11:37 Carbon Dioxide 23 mmol/L (22-29) 04/12/20 11:37 Anion Gap 17 (12-20) 04/12/20 11:37 BUN 29 mg/dL (9-16) H D 04/12/20 11:37 Creatinine 0.81 mg/dL (0.5-1.4) 04/12/20 11:37 Estim Creat Clear Calc 40.1 04/12/20 11:37 Estimated GFR > 60 04/12/20 11:37 Random Glucose 117 mg/dL (60-115) H 04/12/20 11:37 Calcium 8.4 mg/dL (8.4-10.2) 04/12/20 11:37 Total Bilirubin 0.7 mg/dL (0.0-1.0) 04/12/20 11:37 AST 237 U/L (5-31) H 04/12/20 11:37 ALT 103 U/L (0-31) H 04/12/20 11:37 Alkaline Phosphatase 479 U/L (39-117) H D 04/12/20 11:37 Total Protein 6.2 g/dL (6.5-8.0) L D 04/12/20 11:37 Albumin 2.9 g/dL (3.5-5.0) L D 04/12/20 11:37 IgG Total 384 mg/dL (600-1540) L 04/12/20 11:37 IgA Total 937 mg/dL (70-320) H 04/12/20 11:37 IgM 28 mg/dL (50-300) L 04/12/20 11:37 HILARIO Interpretation SEE NOTE 04/12/20 11:37 Progress Note: A/P (1) Multiple myeloma Status: Chronic Assessment and plan: 1. This is a pleasant 69-year-old female with IgA/kappa multiple myeloma. She had Stage III disease at diagnosis in June 2017, based on the international staging system. She is Poor risk for myeloma, based on cytogenetics and molecular studies. Received treatment with Velcade/cyclophosphamide/Decadron for 8 cycles until 2017. Denosumab for bone lesions was started on 08/18/17. She was on Zometa 4 mg IV every 3 months. She was on maintenance velcade 1.3 milligram/meter sq once every 2 weeks from August 2018 until may 2020. Patient suffered a pathological fracture of her left femur. Unfortunately a biopsy was not performed. For her progressive disease, she was recommended daratumumab with pomalidomide and dexamethasone. Unfortunately, she was transferred to a rehab center and she was not able to come in for any treatments. Her co-pay for pomalidomide was prohibitive. She is now presenting with severe hypercalcemia related to disease progression. She is being admitted directly to the hospital for IV hydration and pamidronate. Her code status is a DNR DNI. She is going to talk to her family about further treatments for cancer. Follow-up in 2-3 weeks. - Time Spent With Patient Total time spent is greater than 50% in coordination of care (as documented) at patient's floor/unit and/or counseling patient: Greater than 35 minutes
[2020-06-05] MEDS: oxyCODONE HCl Immed Release 5 MG TABLET PO (15:51)
--- NOTE | 2020-06-05 16:07 | MHC.HEMONCSW ---
PATIENT TO BE ADMITTED. PHONED SISTER, LEFT MESSAGE ON HER MACHINE. PHONED, INFORMED RODO AT [facility]. PATIENT DECLINING, MOLST COMPLETED. WANTS TO HAVE PHONE ACCESS TO HER. REASSURANCE AND SUPPORT PROVIDED.
--- NOTE | 2020-06-05 16:13 | MHC.HEMONC ---
Please see Dr Schuster's Note. Pt here from [facility] for f/u. She is w/c bound with slight confusion. Labs included in paperwork from Facility from this morning. Calcium is high at 13.4. Dr Schuster discussed options with her with myself and Namita ADORNO present. Pt signed MOLST form and agrees to admission to inpt floor for treatment of hypercalcemia. She was given oxycosone 5mg po for #5/#10 pain in left knee. Effect pending.
[2020-06-05 16:29] LABS: MANUAL DIFF FLAG NO
[2020-06-05 16:36] LABS: Basophils Percent Auto 0.1 % (0-2); Eosinophils Absolute Auto 0.1 X10*3/uL (0.0-0.4); Eosinophils Percent Auto 1.1 % (0-4); Hematocrit 28.2 % (37-47); Hemoglobin 8.7 g/dl (12.0-16.0); Imm Gran Abs Auto 0.07 X10*3/uL (0.00-0.03); Lymphocytes Absolute Auto 1.3 X10*3/uL (1.2-4.9); Lymphocytes Percent Auto 18.3 % (20-40); Mean Corpuscular HGB Conc 30.9 g/dl (31.0-35.0); Mean Corpuscular Volume 90.7 fL (80-98); Mean Platelet Volume 11.5 fL (9.4-12.3); Monocytes Absolute Auto 0.8 X10*3/uL (0.1-1.2); Monocytes Percent Auto 11.1 % (2-11); Neutrophils Absolute Auto 4.8 X10*3/uL (2.0-8.3); Neutrophils Percent Auto 68.4 % (45-73); Platelet Count 254 X10*3/uL (160-400); Red Blood Count 3.11 X10*6/uL (4.20-5.50); Red Cell Distribution Width 15.8 % (11.0-16.0)
[2020-06-05 17:15] LABS: Calcium 13.6 mg/dL (8.4-10.2)
[2020-06-05 17:16] LABS: Alanine Aminotransferase 7 U/L (0-31); Albumin Level 2.8 g/dL (3.5-5.0); Alkaline Phosphatase 77 U/L (39-117); Anion Gap 20 (12-20); Aspartate Amino Transferase 21 U/L (5-31); Bilirubin Total 0.3 mg/dL (0.0-1.0); Blood Urea Nitrogen 20 mg/dL (9-16); Carbon Dioxide 27 mmol/L (22-29); Chloride 97 mmol/L (96-108); Creatinine Clr Calc Pharmacy 33.2; Estimated Glomerular Filt Rate 56; Glucose Fasting 102 mg/dL (60-99); Potassium 4.5 mmol/L (3.3-5.1); Sodium 139 mmol/L (135-145); Total Protein 10.2 g/dL (6.5-8.0)
--- NOTE | 2020-06-13 08:53 | MHC.HEMONCSW ---
PATIENT WAS TRANSFERRED TO [facility] THIS PAST WEEKEND FOR ACUTE CARE AND TREATMENT.
--- NOTE | 2020-06-13 10:38 | MHC.HEMONCSW ---
PATIENT AT [facility] INFORMED DR. PITTS
== END | disposition home or self-care (01) ==
LOC: HO.ONC 01-05 09:53
PROVIDERS: Internal Medicine Medical Oncology; PCP Internal Medicine; Visit Provider Internal Medicine
DX: C90.00 Multiple myeloma not having achieved remission (principal); E83.52 Hypercalcemia; S72.92XD Unspecified fracture of left femur, subsequent encounter for closed fracture with routine healing; Z66 Do not resuscitate
CPT/HCPCS: 36415; 36591; 36593; 80053; 82232; 82784; 83520; 85025; 85027; 86334; 96375; 96401; 99214; J1642; J2997; J3489; J9041